=== PATIENT | male | born 1945 | race Hispanic/Latino ===

== ENCOUNTER → 2017-11-08 | Outpatient (CLI) | payer MEDICARE ==
[~2017-11-08] MED LIST: AVODART PO; FENOFIBRATE145 MG PO; LEVITRA; LISINOPRIL PO; METFORMIN; METFORMIN HCL500 MG PO; MINOCYCLINE HCL50 MG PO; NEURONTIN PO; SYNTHROID PO; TAMSULOSIN HCL0.4 MG PO; TERAZOSIN; TRICOR; VESICARE5 MG PO; [UNRECOGNIZED DRUG - OTHER]; [UNRECOGNIZED DRUG - OTHER] PO; [UNRECOGNIZED DRUG - OTHER] PO; [UNRECOGNIZED DRUG - OTHER] TP
--- NOTE | 2017-11-08 13:30 | Diagnostic Imaging Report ---
PROCEDURE:X-RAY ABDOMEN - KUB COMPARISON:X-rays 08/12/17 and 05/07/2017. INDICATIONS:CALCULUS OF THE KIDNEY FINDINGS: Bowel gas pattern: Normal. No dilated bowel loops. Calcifications: There are 3 stable punctate calcifications in the lower pole of the right kidney. No calcifications over the left renal shadow. Several calcifications at the midline lower pelvis are stable. Organomegaly: None Bones: Sclerotic lesion in the right iliac wing is stable. CONCLUSION: Stable calcifications in the lower pole of the right kidney. No new calcifications by x-ray. Dictated by: Yuliana Jansen M.D. on 11/08/2017 at 13:30 Electronically approved by: Yuliana Jansen M.D. on 11/08/2017 at 13:30
== END ==
LOC: RAD 09:17
PROVIDERS: ATTEND Urology
DX: N20.0 Calculus of kidney (principal)
CPT/HCPCS: 74018

== ENCOUNTER 2017-11-10 09:31 | Emergency (ER) | payer MEDICARE, OTHER ==
[~2017-11-10] VITALS: Ht 165.1 cm; Wt 88.5 kg
--- OUTSIDE RECORDS SUMMARY | 2017-11-10 09:35 | XMS REPORT ---
Author Author [facility] Address Unknown Phone Unavailable Care Team Providers [facility] Administrative Assistant Name Role Phone RANDI LEE Unavailable Unavailable Problems This patient has no known problems. Allergies, Adverse Reactions, Alerts This patient has no known allergies or adverse reactions. Medications This patient has no known medications. Results Test Description Test Time Test Comments Text Results Atomic Results Result Comments ABDOMEN-1VIEW (KUB) [place] [address] Patient Name: UMER MORENO MR #: [id number] : 1945 Age/Sex: 72/M Req #: [id number] Adm Physician: Ordered by: RANDI LEE MD Report #: [id number] Location: [facility] Room/Bed: Procedure: [id number] DX/ABDOMEN-1VIEW (KUB) Exam Date: 11/08/17 Exam Time: 0939 REPORT STATUS: Signed PROCEDURE: X-RAY ABDOMEN - KUB COMPARISON: X-rays 08/12/17 and 05/07/2017. INDICATIONS: CALCULUS OF THE KIDNEY FINDINGS: Bowel gas pattern: Normal. No dilated bowel loops. Calcifications: There are 3 stable punctate calcifications in the lower pole of the right kidney. No calcifications over the left renal shadow. Several calcifications at the midline lower pelvis are stable. Organomegaly: None Bones: Sclerotic lesion in the right iliac wing is stable. CONCLUSION: Stable calcifications in the lower pole of the right kidney. No new calcifications by x-ray. Dictated by: Yannick Jansen M.D. on 2017 at 13:30 Electronically approved by: Yannick Jansen M.D. on 2017 at 13:30 Dictated By: YANNICK JANSEN MD 1330 Transcribed By : ALIREZA on 11/08/17 1330 COPY TO: RANDI LEE MD ABDOMEN-1VIEW (KUB) [place] [address] Patient Name: UMER MORENO MR #: [id number] : 1945 Age/Sex: 72/M Req #: [id number] Adm Physician: Ordered by: RANDI LEE MD Report #: [id number] Location: [facility] Room/Bed: Procedure: [id number] DX/ABDOMEN-1VIEW (KUB) Exam Date: 08/12/17 Exam Time: 0855 REPORT STATUS: Signed PROCEDURE: X-RAY ABDOMEN - KUB COMPARISON: 05/07/2017 INDICATIONS: CALCULUS OF KIDNEY FINDINGS: Unchanged appearance of a 2-3 mm calculus projecting over the lower pole of the right renal shadow. No additional calcifications project over the renal shadows, expected ureteral courses, or urinary bladder. Midline low pelvic calcifications are likely prostatic in origin. Unchanged sclerotic focus projecting over the right iliac wing, likely a bone island. Regional skeletal structures are otherwise intact. Nonobstructive bowel gas pattern with gas and fecal material throughout the rectum. CONCLUSION: Stable right lower pole nephrolithiasis. Dictated by: Trip Fam M.D. on 08/12/2017 at 9:35 Electronically approved by: Trip Fam M.D. on 08/12/2017 at 9:35 Dictated By : TRIP FAM MD 4 Transcribed By: ALIREZA on 08/12/17934 COPY TO: RANDI LEE MD ABDOMEN-1VIEW (KUB) [place] [address] Patient Name: UMER MORENO MR #: [id number] : 1945 Age/Sex: 71/M Req #: [id number] Adm Physician: Ordered by: RANDI LEE MD Report #: [id number] Location: [facility] Room/Bed: Procedure: [id number] DX/ABDOMEN-1VIEW (KUB) Exam Date: 05/07/17 Exam Time: 0820 REPORT STATUS: Signed PROCEDURE: X-RAY ABDOMEN - KUB COMPARISON: 01/26/17. INDICATIONS: RENAL CALCULUS FINDINGS: No appreciable interval change in cluster of small calcifications projecting over the lower pole of the right kidney, the largest of which measures 3 mm. No additional calcifications project over the renal shadows, expected ureteral courses, or pelvis. Dystrophic prostatic calcifications. Sclerotic focus projecting over the right iliac wing is unchanged and may represent a bone island. Regional skeletal structures are otherwise intact. Bowel gas pattern is nonobstructive. CONCLUSION: Unchanged right lower pole nephrolithiasis. Dictated by: Trip Fam M.D. on 05/07/2017 at 8:52 Electronically approved by: Trip Fam M.D. on 05/07/2017 at 8:52 Dictated By: TRIP FAM MD 1 Transcribed By: ALIREZA on 05/07/17851 COPY TO: RANDI LEE MD
[2017-11-10] MEDS ORDERED: ACETAMINOPHEN/CODEINE 300MG - 30MG TAB PO ONE (10:15)
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
[2017-11-10 12:43] LABS: BASOPHILS % 0.2 % (0.0-1.0); EOSINOPHILS # (AUTO) 0.1 (0.0-0.4); EOSINOPHILS % 2.1 % (0.0-6.0); HEMATOCRIT 39.4 % (38.2-49.6); HEMOGLOBIN 13.3 g/dL (14.0-18.0); LYMPHOCYTES # (AUTO) 1.8 (1.0-3.2); MEAN CORPUSCULAR HGB CONC 33.8 g/dL (31-35); MEAN CORPUSCULAR VOLUME 77.1 fL (81-99); MONOCYTES # (AUTO) 0.4 (0.2-0.8); MONOCYTES % 7.8 % (4.4-11.3); NEUTROPHILS % 56.5 % (38.7-80.0); PLATELET COUNT 242 x10e3/uL (140-360); RED BLOOD COUNT 5.11 x10e6/uL (4.3-5.7); RED CELL DISTRIBUTION WIDTH 14.3 % (11.7-14.4)
[2017-11-10 12:54] LABS: INR 1.09; PARTIAL THROMBOPLASTIN TIME 26.1 seconds (23.8-35.5); PROTHROMBIN TIME 13.3 seconds (11.9-14.5)
[2017-11-10 13:02] LABS: ALANINE AMINOTRANSFERASE 23 IU/L (0-55); ALBUMIN 4.1 g/dL (3.5-5.0); ALBUMIN/GLOBULIN RATIO 1.3 (0.8-2.0); ALKALINE PHOSPHATASE 33 IU/L (40-150); ANION GAP 11.1 mmol/L (8-16); BLOOD UREA NITROGEN 10 mg/dL (7-26); BUN/CREATININE RATIO 9 (6-25); CALCIUM 9.3 mg/dL (8.4-10.2); CARBON DIOXIDE 29 mmol/L (22-29); CHLORIDE 103 mmol/L (98-107); CREATININE, SERUM 1.06 mg/dL (0.72-1.25); EST GLOMERULAR FILTRATION RATE > 60 ML/MIN (60-); GLUCOSE 229 mg/dL (74-118); POTASSIUM 4.1 mmol/L (3.5-5.1); SODIUM 139 mmol/L (136-145)
== END 2017-11-10 13:37 | disposition short-term general hospital (02) ==
LOC: ER 09:31
DX: I60.8 Other nontraumatic subarachnoid hemorrhage (principal); S02.40FA Zygomatic fracture, left side, initial encounter for closed fracture; S02.82XA Fracture of other specified skull and facial bones, left side, initial encounter for closed fracture; S00.03XA Contusion of scalp, initial encounter; Y04.8XXA Assault by other bodily force, initial encounter; Y92.488 Other paved roadways as the place of occurrence of the external cause; E11.9 Type 2 diabetes mellitus without complications; I10 Essential (primary) hypertension; Z85.850 Personal history of malignant neoplasm of thyroid; E03.9 Hypothyroidism, unspecified
CPT/HCPCS: 36415; 70450; 70486; 72125; 80053; 85025; 85610; 85730; 99285

== ENCOUNTER → 2018-03-11 | Outpatient (CLI) | payer OTHER ==
--- NOTE | 2018-03-11 12:13 | Diagnostic Imaging Report ---
PROCEDURE:X-RAY ABDOMEN - KUB COMPARISON:Patients [facility], DX, ABDOMEN-1VIEW (KUB), 11/08/2017, 9:39. INDICATIONS:CALCULUS OF KIDNEY FINDINGS: Lung bases: Clear. Bowel: Normal bowel gas pattern. No dilated bowel loops. Calcifications: 2-3 tiny calcifications overlying the lower pole of the right kidney are stable. No calcifications over the left renal shadow or along the expected course of the ureters. Bones/soft tissues: Unremarkable. CONCLUSION: Right intrarenal calculi as described above. No new calculus has developed. Dictated by: Yuliana Jansen M.D. on 03/11/2018 at 12:18 Electronically approved by: Yuliana Jansen M.D. on 03/11/2018 at 12:18
== END ==
LOC: RAD 09:14
PROVIDERS: ATTEND Urology
DX: N20.0 Calculus of kidney (principal)
CPT/HCPCS: 74018

== ENCOUNTER → 2018-08-04 | Outpatient (CLI) | payer MEDICARE ==
[2018-08-04 09:09] LABS: BASOPHILS % 0.3 % (0.0-1.0); EOSINOPHILS # (AUTO) 0.3 (0.0-0.4); EOSINOPHILS % 3.9 % (0.0-6.0); HEMATOCRIT 42.4 % (38.2-49.6); HEMOGLOBIN 13.6 g/dL (14.0-18.0); LYMPHOCYTES # (AUTO) 2.1 (1.0-3.2); LYMPHOCYTES % 32.4 % (18.0-39.1); MEAN CORPUSCULAR HGB CONC 32.1 g/dL (31-35); MEAN CORPUSCULAR VOLUME 77.9 fL (81-99); MONOCYTES # (AUTO) 0.4 (0.2-0.8); MONOCYTES % 6.4 % (4.4-11.3); NEUTROPHILS # (AUTO) 3.6 (2.1-6.9); NEUTROPHILS % 56.5 % (38.7-80.0); PLATELET COUNT 255 x10e3/uL (140-360); RED BLOOD COUNT 5.44 x10e6/uL (4.3-5.7); RED CELL DISTRIBUTION WIDTH 14.6 % (11.7-14.4)
[2018-08-04 09:35] LABS: ALBUMIN 3.7 g/dL (3.5-5.0); ALKALINE PHOSPHATASE 38 IU/L (40-150); ANION GAP 13.8 mmol/L (8-16); BLOOD UREA NITROGEN 10 mg/dL (7-26); BUN/CREATININE RATIO 11 (6-25); CALCIUM 9.4 mg/dL (8.4-10.2); CARBON DIOXIDE 26 mmol/L (22-29); CHLORIDE 103 mmol/L (98-107); CHOL/HDL RATIO 5.1 (3.9-4.7); CHOLESTEROL 177 MD/DL (0-199); CREATININE, SERUM 0.89 mg/dL (0.72-1.25); EST GLOMERULAR FILTRATION RATE > 60 ML/MIN (60-); GLUCOSE 184 mg/dL (74-118); HDL CHOLESTEROL 35 MG/DL (40-60); LDL CHOLESTEROL 103 MG/DL (60-130); POTASSIUM 3.8 mmol/L (3.5-5.1); SODIUM 139 mmol/L (136-145); TRIGLYCERIDES 196 MG/DL (0-149)
[2018-08-04 09:49] LABS: ALANINE AMINOTRANSFERASE 17 IU/L (0-55)
[2018-08-04 09:55] LABS: THYROID STIMULATING HORMONE 1.607 uIU/mL (0.350-4.940)
== END ==
LOC: LAB 08:29
PROVIDERS: ATTEND Internal Medicine Endocrinology, Diabetes & Metabolism
DX: Z12.5 Encounter for screening for malignant neoplasm of prostate (principal); R94.6 Abnormal results of thyroid function studies; R73.09 Other abnormal glucose; I42.9 Cardiomyopathy, unspecified; E78.5 Hyperlipidemia, unspecified; R80.9 Proteinuria, unspecified; R68.89 Other general symptoms and signs
CPT/HCPCS: 36415; 80053; 80061; 82044; 83036; 84152; 84443; 85025

== ENCOUNTER → 2018-10-19 | Outpatient (CLI) | payer MEDICARE ==
--- NOTE | 2018-10-19 10:46 | Diagnostic Imaging Report ---
EXAM: CT ABDOMEN AND PELVIS without IV CONTRAST DATE: 10/19/2018 Time stamp on Exam: 9:37 AM INDICATION: Hematuria COMPARISON: None TECHNIQUE: The abdomen and pelvis were scanned using a multidetector helical scanner. Coronal and sagittal reformations were obtained. Routine protocol performed. Low-dose technique was utilized. IV Contrast: None Oral Contrast: None Radiation Dose: Total DLP 536.08 mGy*cm Estimated effective dose: DLP x 0.015 x size factor FINDINGS: LOWER THORAX: No consolidations LIVER: No masses with diffuse fatty infiltration of the liver. BILIARY: The gallbladder is unremarkable. No ductal dilatation. SPLEEN: No masses PANCREAS: No masses ADRENALS: No nodules KIDNEYS: There are 2 small right lower pole renal stones with a composite measurement of 6 mm. No evidence of hydronephrosis. Contour abnormality of the left upper interpolar region with subtle low density may represent a cyst or a mass. In a patient with gross hematuria CT renal mass protocol follow-up would be of benefit. Nonspecific bilateral perinephric fat stranding. GI TRACT: No distention, wall thickening or evidence of obstruction. VESSELS: Vascular calcification. PERITONEUM/RETROPERITONEUM: No free air or fluid LYMPH NODES: No lymphadenopathy REPRODUCTIVE ORGANS: Prostate calcification. BLADDER: Unremarkable SOFT TISSUES: Unremarkable BONES: No suspicious bone lesions. Mild degenerative changes of the spine. IMPRESSION: 1. Two small nonobstructing right lower pole renal stones. 2. Subtle left lateral renal interpolar contour abnormality with focal hypodensity. 3. Follow-up renal mass protocol is recommended. 4. Diffuse fatty infiltration of the liver. Signed by: Dr. Tray Hester DO on 10/19/2018 10:43 AM
== END ==
LOC: CT 08:56
PROVIDERS: ATTEND Urology
DX: R31.0 Gross hematuria (principal); N20.0 Calculus of kidney; K76.0 Fatty (change of) liver, not elsewhere classified
CPT/HCPCS: 74176

== ENCOUNTER → 2018-11-01 | Outpatient (CLI) | payer MEDICARE ==
--- NOTE | 2018-11-01 15:17 | Diagnostic Imaging Report ---
EXAMINATION: PA and lateral views of the chest. COMPARISON: None CLINICAL HISTORY: Thyroid cancer DISCUSSION: Lines/tubes: None. Lungs: The lungs are well inflated and clear. No pneumonia or pulmonary edema. Pleura: No pleural effusion or pneumothorax. Heart and mediastinum: The cardiomediastinal silhouette is normal. Bones and soft tissues: No acute bony abnormalities. IMPRESSION: No acute cardiopulmonary abnormalities. Signed by: Dr. Carlos Lyman M.D. on 11/01/2018 3:14 PM
--- NOTE | 2018-11-01 17:26 | Diagnostic Imaging Report ---
EXAM: Thyroid Ultrasound INDICATION: ^THYROID CANCER. Thyroidectomy 2002. COMPARISON: None TECHNIQUE: Transverse and sagittal images were obtained of the thyroid bed. FINDINGS: Thyroid bed: Status post thyroidectomy. No residual thyroid tissue or recurrent thyroid tissue is noted in the thyroid bed bilaterally. Lymph nodes: No suspicious appearing lymph nodes. IMPRESSION: Status post thyroidectomy. No evidence to suggest residual or recurrent disease. Signed by: Dr. Donnie Bhatia M.D. on 11/01/2018 5:22 PM
== END ==
LOC: US 13:03
PROVIDERS: ATTEND Otolaryngology
DX: C73 Malignant neoplasm of thyroid gland (principal)
CPT/HCPCS: 71046; 76536

== ENCOUNTER → 2018-11-07 | Outpatient (CLI) | payer MEDICARE ==
[~2018-11-07] MED LIST changes: +IOPAMIDOL 370 MG/ML 200 ML INFUS..BTL INJ ONE; +SODIUM CHLORIDE 0.9% 50ML 50 ML ONE
[2018-11-07 08:25] LABS: BLOOD UREA NITROGEN 17 mg/dL (7-26); BUN/CREATININE RATIO 17 (6-25); EST GLOMERULAR FILTRATION RATE > 60 ML/MIN (60-)
--- NOTE | 2018-11-07 10:41 | Diagnostic Imaging Report ---
EXAM: CT Abdomen and Pelvis WITHOUT and WITH contrast INDICATION: Renal neoplasm COMPARISON: CT abdomen/pelvis, 10/19/2018 TECHNIQUE: Abdomen and pelvis were scanned utilizing a multidetector helical scanner from the lung base to the pubic symphysis before and after administration of IV contrast. Coronal and sagittal reformations were obtained. Imaging was obtained precontrast, arterial phase, venous phase and delayed phase. Renal mass protocol was performed, with abdomen and pelvis scanning on delayed imaging. Dose modulation, iterative reconstruction, and/or weight based adjustment of the mA/kV was utilized to reduce the radiation dose to as low as reasonably achievable. IV CONTRAST: 100 mL of Isovue-370 ORAL CONTRAST: 900 cc water RADIATION DOSE: Total DLP: 1803.90 mGy*cm Estimated effective dose: (DLP x 0.015 x size factor) mSv COMPLICATIONS: None FINDINGS: LINES and TUBES: None. LOWER THORAX: Lung bases clear. Heart size normal. HEPATOBILIARY: Diffuse low density hepatic parenchyma compatible with steatosis. No focal hepatic lesions. No biliary ductal dilation. GALLBLADDER: No radio-opaque stones or sludge. No wall thickening. SPLEEN: No splenomegaly. PANCREAS: No focal masses or ductal dilatation. ADRENALS: No adrenal nodules KIDNEYS/URETERS: Kidneys enhance symmetrically. No hydronephrosis or ureteral dilatation no filling defects in opacified collecting systems. There is a well marginated 1.1 cm peripheral low density mass in the lateral upper aspect of the left kidney. This is best seen on postcontrast imaging. The internal density measures under 10 HU on each phase of the examination with no evidence for enhancement. Again noted is a 5 mm calcification in the lower pole right collecting system compatible with nonobstructing intrarenal calculus. There is very mild perinephric stranding bilaterally. GI TRACT: No abnormal distention, wall thickening, or evidence of bowel obstruction. There are scattered colonic diverticula with no CT evidence for acute diverticulitis. The appendix is not conspicuously visualized but there is no right lower quadrant inflammation to suggest appendicitis. PELVIC ORGANS/BLADDER: Partially opacified urinary bladder unremarkable. No discrete abnormal mass or fluid collection in the pelvis. LYMPH NODES: No dominant lymph node mass is seen in the abdomen, retroperitoneum or pelvis. VESSELS: There are scattered calcified plaques along the abdominal aorta. No abdominal aortic aneurysm or dissection. Renal arteries are patent with an accessory left renal artery noted. IVC unremarkable. Portal system is patent, only partially included on the venous phase which is targeted at the kidneys. PERITONEUM / RETROPERITONEUM: No pneumoperitoneum or ascites. BONES: No acute or suspicious bony lesions. SOFT TISSUES: Superficial surrounding soft tissue unremarkable. Small left inguinal hernia containing fat. IMPRESSION: 1. 1.1 cm hypodensity in the lateral upper pole of the left kidney is cyst density, well marginated and shows no evidence for enhancement. This is compatible with a small cortical cyst. 2. Again noted is a 5 mm nonobstructing intrarenal calculus the lower pole of the right collecting system. 3. No other acute finding or significant change from previous CT. Signed by: Dr. Carlos Martinez M.D. on 11/07/2018 10:37 AM
== END ==
LOC: CT 07:18
PROVIDERS: ATTEND Urology
DX: D41.00 Neoplasm of uncertain behavior of unspecified kidney (principal)
CPT/HCPCS: 36415; 74178; 82565; 84520; Q9967

== ENCOUNTER → 2018-12-22 | Outpatient (CLI) | payer MEDICARE ==
[~2018-12-22] MED LIST changes: -IOPAMIDOL 370 MG/ML 200 ML INFUS..BTL INJ ONE; -SODIUM CHLORIDE 0.9% 50ML 50 ML ONE
--- NOTE | 2018-12-22 09:29 | Diagnostic Imaging Report ---
Exam: KUB - 2 views Clinical History: Renal calculus. Comparison: CT abdomen/pelvis 11/07/2018. Findings: There is a 5 mm calcification overlying the right lower pole kidney. No evidence of calcification overlying the left kidney or expected course of the ureters. There are prostatic calcifications. Nonobstructive bowel gas pattern. Moderate amount of stool in the colon. No acute bony abnormality. Impression: A 5 mm calcification overlying the right lower pole kidney, corresponding to stone seen on prior CT from 11/07/2018. Signed by: Dr. Glenn Velez MD on 12/22/2018 9:25 AM
== END ==
LOC: RAD 08:31
PROVIDERS: ATTEND Urology
DX: N20.0 Calculus of kidney (principal)
CPT/HCPCS: 74018

== ENCOUNTER → 2019-03-07 | Outpatient (CLI) | payer MEDICARE ==
[2019-03-07 09:01] LABS: BASOPHILS % 0.1 % (0.0-1.0); EOSINOPHILS # (AUTO) 0.3 (0.0-0.4); EOSINOPHILS % 3.4 % (0.0-6.0); HEMATOCRIT 22.4 % (38.2-49.6); HEMOGLOBIN 7.1 g/dL (14.0-18.0); LYMPHOCYTES # (AUTO) 1.8 (1.0-3.2); LYMPHOCYTES % 23.2 % (18.0-39.1); MEAN CORPUSCULAR HEMOGLOBIN 25.4 pg (28-32); MEAN CORPUSCULAR HGB CONC 31.7 g/dL (31-35); MONOCYTES # (AUTO) 0.5 (0.2-0.8); MONOCYTES % 6.7 % (4.4-11.3); NEUTROPHILS # (AUTO) 4.9 (2.1-6.9); NEUTROPHILS % 62.4 % (38.7-80.0); PLATELET COUNT 282 x10e3/uL (140-360); RED CELL DISTRIBUTION WIDTH 15.4 % (11.7-14.4); RETICULOCYTE % 4.1 % (0.8-2.2)
[2019-03-07 09:18] LABS: ALANINE AMINOTRANSFERASE 15 IU/L (0-55); ALBUMIN 3.4 g/dL (3.5-5.0); ALBUMIN/GLOBULIN RATIO 1.3 (0.8-2.0); ALKALINE PHOSPHATASE 28 IU/L (40-150); BLOOD UREA NITROGEN 12 mg/dL (7-26); BUN/CREATININE RATIO 12 (6-25); CALCIUM 8.7 mg/dL (8.4-10.2); CARBON DIOXIDE 26 mmol/L (22-29); CHLORIDE 100 mmol/L (98-107); CREATININE, SERUM 0.99 mg/dL (0.72-1.25); EST GLOMERULAR FILTRATION RATE > 60 ML/MIN (60-); GLUCOSE 211 mg/dL (74-118); SODIUM 133 mmol/L (136-145)
[2019-03-07 09:39] LABS: FERRITIN 66.23 ng/mL (21.81-274.66)
[2019-03-07 09:52] LABS: FOLATE 7.3 ng/mL (7.0-15.4)
== END ==
LOC: LAB 08:27
PROVIDERS: ATTEND Internal Medicine Hepatology
DX: K92.1 Melena (principal); D62 Acute posthemorrhagic anemia; K59.00 Constipation, unspecified; E11.9 Type 2 diabetes mellitus without complications; K57.30 Diverticulosis of large intestine without perforation or abscess without bleeding; K21.9 Gastro-esophageal reflux disease without esophagitis; Z86.010 Personal history of colon polyps
CPT/HCPCS: 36415; 80053; 82607; 82728; 82746; 85025; 85045

== ENCOUNTER → 2019-04-07 | Outpatient (CLI) | payer MEDICARE | LOC: LAB 09:01 | PROVIDERS: ATTEND Internal Medicine Endocrinology, Diabetes & Metabolism | DX: D50.9 Iron deficiency anemia, unspecified (principal); D51.3 Other dietary vitamin B12 deficiency anemia ==

== ENCOUNTER → 2019-04-10 | Outpatient (CLI) | payer MEDICARE ==
[2019-04-10 08:38] LABS: BASOPHILS % 0.3 % (0.0-1.0); EOSINOPHILS # (AUTO) 0.2 (0.0-0.4); EOSINOPHILS % 3.5 % (0.0-6.0); HEMATOCRIT 40.4 % (38.2-49.6); HEMOGLOBIN 12.8 g/dL (14.0-18.0); LYMPHOCYTES # (AUTO) 1.7 (1.0-3.2); LYMPHOCYTES % 29.8 % (18.0-39.1); MEAN CORPUSCULAR HEMOGLOBIN 25.8 pg (28-32); MEAN CORPUSCULAR HGB CONC 31.7 g/dL (31-35); MEAN CORPUSCULAR VOLUME 81.3 fL (81-99); MONOCYTES # (AUTO) 0.5 (0.2-0.8); MONOCYTES % 8.1 % (4.4-11.3); NEUTROPHILS # (AUTO) 3.4 (2.1-6.9); NEUTROPHILS % 58.1 % (38.7-80.0); PLATELET COUNT 299 x10e3/uL (140-360); RED BLOOD COUNT 4.97 x10e6/uL (4.3-5.7); RED CELL DISTRIBUTION WIDTH 14.7 % (11.7-14.4)
[2019-04-10 09:11] LABS: FERRITIN 25.79 ng/mL (21.81-274.66)
== END ==
LOC: LAB 08:24
PROVIDERS: ATTEND Internal Medicine Hepatology
DX: D50.9 Iron deficiency anemia, unspecified (principal); D51.3 Other dietary vitamin B12 deficiency anemia
CPT/HCPCS: 36415; 82728; 83540; 84466; 85025

== ENCOUNTER → 2019-06-08 | Outpatient (CLI) | payer MEDICARE ==
--- NOTE | 2019-06-08 10:13 | Diagnostic Imaging Report ---
Abdomen, 1 view. History: Kidney stones. Comparison: 12/22/2018. Findings: Air is scattered throughout nondilated small and large bowel. There are no masses. The previously seen small calcification projected over the right renal lower pole is not seen on today's exam. The osseous structures are intact. IMPRESSION: Non-specific bowel gas pattern. Signed by: Boni Sparrow on 06/08/2019 10:10 AM
== END ==
LOC: RAD 09:06
PROVIDERS: ATTEND Urology
DX: N20.0 Calculus of kidney (principal)
CPT/HCPCS: 74018

== ENCOUNTER → 2019-12-29 | Outpatient (CLI) | payer MEDICARE ==
--- NOTE | 2019-12-29 10:12 | Diagnostic Imaging Report ---
EXAM: Renal Ultrasound INDICATION: ^[id number] ^0823 ^NEOPLASM OF UNCERTAIN OF UNSPC'D KIDNEY COMPARISON: CT abdomen and pelvis of 11/07/2018 TECHNIQUE: Transverse and longitudinal images of the kidneys and bladder were obtained. FINDINGS: Right Kidney: Length: 12.7 cm Appearance: Normal echogenicity. Collecting system: No hydronephrosis Stones: None Cyst/Mass: None Left Kidney: Length: 12.3 cm Appearance: Normal echogenicity. Collecting system: No hydronephrosis Stones: None Cyst/Mass: Upper pole 1.4 cm anechoic simple cyst. Bladder: No mass or calculi. Bilateral ureteral jets visualized. Prevoid volume estimate of 348 cc. Prostate volume estimate of 40.2 cc. IMPRESSION: Left upper pole simple cyst. No hydronephrosis or renal calculi. Signed by: Rod Tineo MD on 12/29/2019 10:08 AM
== END ==
LOC: US 07:49
PROVIDERS: ATTEND Urology
DX: D41.00 Neoplasm of uncertain behavior of unspecified kidney (principal)
CPT/HCPCS: 76770

== ENCOUNTER 2020-04-16 14:41 | Emergency (ER) | payer MEDICARE ==
[~2020-04-16] VITALS: Ht 165.1 cm; Wt 88.5 kg
--- NOTE | 2020-04-16 15:29 | NUR ---
notified primary nurse of pt
[2020-04-16 15:52] LABS: BASOPHILS % 0.2 % (0.0-1.0); EOSINOPHILS # (AUTO) 0.1 (0.0-0.4); EOSINOPHILS % 1.4 % (0.0-6.0); HEMATOCRIT 42.2 % (38.2-49.6); HEMOGLOBIN 13.8 g/dL (14.0-18.0); LYMPHOCYTES # (AUTO) 1.3 (1.0-3.2); LYMPHOCYTES % 12.7 % (18.0-39.1); MEAN CORPUSCULAR HEMOGLOBIN 24.7 pg (28-32); MEAN CORPUSCULAR HGB CONC 32.7 g/dL (31-35); MEAN CORPUSCULAR VOLUME 75.6 fL (81-99); MONOCYTES # (AUTO) 0.9 (0.2-0.8); MONOCYTES % 8.8 % (4.4-11.3); NEUTROPHILS # (AUTO) 7.9 (2.1-6.9); NEUTROPHILS % 76.1 % (38.7-80.0); PLATELET COUNT 332 x10e3/uL (140-360); RED BLOOD COUNT 5.58 x10e6/uL (4.3-5.7); RED CELL DISTRIBUTION WIDTH 14.5 % (11.7-14.4)
[2020-04-16 15:58] LABS: CLARITY,URINE CLOUDY (CLEAR); COLOR,URINE YELLOW (YELLOW); LEUKOCYTE ESTERASE ,URINE 2+ (NEGATIVE)
[2020-04-16 15:59] LABS: BILIRUBIN,URINE NEGATIVE (NEGATIVE); KETONES,URINE NEGATIVE (NEGATIVE); NITRITE,URINE POSITIVE (NEGATIVE); PROTEIN,URINE DIPSTICK 2+ (NEGATIVE); URINE UROBILINOGEN 0.2 mg/dL (0.2 - 1)
--- NOTE | 2020-04-16 16:02 | Emergency Department Note ---
History of Present Illnes History of Present Illness Chief Complaint: Abdominal Complaints History of Present Illness This is a 74 year old male Chief Complaint Comment PAIN with urination. PT STATES HASNT PEED IN ENTIRE WK. PT is poor HISTORIAN. PT AAOX4. AMBULATORY. STATES LOWER BACK AND PENILE PAIN. NOW STATES SAW HIS PCP YESTERDAY AND PUT ON UNK ANTIBIOTICS AND NOT BETTER AFTER one dose. Historian: Patient Arrival Mode: Car Onset (how long ago): week(s) Location: Penis Quality: burning Radiation: Reports back Severity: moderate Onset quality: gradual Duration (how long): week(s) (1) Timing of current episode: constant Progression: worsening Chronicity: new Context: Reports recent illness (UTI) Relieving factors: none Associated symptoms: Reports denies other symptoms Treatments prior to arrival: none Past Medical/Family History Physician Review I have reviewed the patient's past medical and family history. Any updates have been documented here. Past Medical History Recent Fever: No Clinical Suspicion of Infectio: No New/Unexplained Change in Ment: No Other Surgery: rotater cuff, hernia repair, thyroid removed Social History Smoking Cessation: Never Smoker Counseling Performed: No Alcohol Use: None Any Illegal Drug Use: No Other Last Tetanus: unk Any Pre-Existing Lines (PICC,: No Review of Systems Review of Systems Constitutional: Reports no symptoms EENTM: Reports no symptoms Cardiovascular: Reports no symptoms Respiratory: Reports no symptoms Gastrointestinal: Reports no symptoms Genitourinary: Reports as per HPI, Reports dysuria, Reports frequency Musculoskeletal: Reports no symptoms Integumentary: Reports no symptoms Neurological: Reports no symptoms Psychological: Reports no symptoms Endocrine: Reports no symptoms Hematological/Lymphatic: Reports no symptoms Physical Exam Related Data Allergies: Coded Allergies: Penicillins (Verified Allergy, Mild, 06/02/12) levofloxacin (Verified Allergy, Mild, ITCHING, 10/27/11) Uncoded Allergies: IVP DYE (Allergy, Mild, 06/02/12) Triage Vital Signs Vital Signs Date Time Temp Pulse Resp B/P (MAP) Pulse Ox O2 Delivery O2 Flow Rate FiO2 04/16/20 14:56 101.8 79 16 101/65 98 Room Air Vital signs reviewed: Yes Physical Exam CONSTITUTIONAL Constitutional: Present well-developed, Present well-nourished HENT HENT: Present normocephalic, Present atraumatic, Present oropharynx clear/moist, Present nose normal HENT L/R: Present left ext ear normal, Present right ext ear normal EYES Eyes: Reports PERRL, Reports conjunctivae normal NECK Neck: Present ROM normal PULMONARY Pulmonary: Present effort normal, Present breath sounds normal CARDIOVASCULAR Cardiovascular: Present regular rhythm, Present heart sounds normal, Present capillary refill normal, Present normal rate GASTROINTESTINAL Abdominal: Present soft, Present nontender, Present bowel sounds normal GENITOURINARY Genitourinary: Present exam deferred SKIN Skin: Present warm, Present dry MUSCULOSKELETAL Musculoskeletal: Present ROM normal NEUROLOGICAL Neurological: Present alert, Present oriented x 3, Present no gross motor or sensory deficits PSYCHOLOGICAL Psychological: Present mood/affect normal, Present judgement normal Results Laboratory Result Diagram: 04/16/20 1500 Laboratory Laboratory Tests Test 04/16/20 15:00 White Blood Count 10.35 x10e3/uL (4.8-10.8) Red Blood Count 5.58 x10e6/uL (4.3-5.7) Hemoglobin 13.8 g/dL (14.0-18.0) Hematocrit 42.2 % (38.2-49.6) Mean Corpuscular Volume 75.6 fL (81-99) Mean Corpuscular Hemoglobin 24.7 pg (28-32) Mean Corpuscular Hemoglobin Concent 32.7 g/dL (31-35) Red Cell Distribution Width 14.5 % (11.7-14.4) Platelet Count 332 x10e3/uL (140-360) Neutrophils (%) (Auto) 76.1 % (38.7-80.0) Lymphocytes (%) (Auto) 12.7 % (18.0-39.1) Monocytes (%) (Auto) 8.8 % (4.4-11.3) Eosinophils (%) (Auto) 1.4 % (0.0-6.0) Basophils (%) (Auto) 0.2 % (0.0-1.0) Neutrophils # (Auto) 7.9 (2.1-6.9) Lymphocytes # (Auto) 1.3 (1.0-3.2) Monocytes # (Auto) 0.9 (0.2-0.8) Eosinophils # (Auto) 0.1 (0.0-0.4) Basophils # (Auto) 0.0 (0.0-0.1) Absolute Immature Granulocyte (auto 0.08 x10e3/uL (0-0.1) Assessment & Plan Medical Decision Making MDM 74-year-old male presents for concerns over urinary tract infection. He was recently diagnosed with urinary tract infection place and antibiotics. He has taken one dose. Vital signs stable, within normal limits. Workup shows urinary tract infection. Doubt emergent process at this time. I discussed with patient that he needs to continue taking his antibiotics and to follow-up with his doctor concerning this. He will return to emergency department if new or worseni ng symptoms. Patient is appropriate for discharge. Do not suspect sepsis this time. Reassessment Reassessment time: 16:02 Reassessment Well appearing, NAD Assessment & Plan Final Impression: (1) UTI (urinary tract infection) Depart Disposition: HOME, SELF-CARE Last Vital Signs Date Time Temp Pulse Resp B/P (MAP) Pulse Ox O2 Delivery O2 Flow Rate FiO2 04/16/20 14:56 101.8 79 16 101/65 98 Room Air Home Meds Reported Medications Metformin Hcl (METFORMIN HCL) 500 Mg Tablet, 500 MG PO BID, #60 TAB 03/25/15 Tamsulosin Hcl (TAMSULOSIN HCL) 0.4 Mg Cap.er.24h, 0.4 MG PO DAILY 03/25/15 Solifenacin Succinate (VESICARE) 5 Mg Tablet, 5 MG PO DAILY, #30 TAB 03/25/15 Fenofibrate Nanocrystallized (FENOFIBRATE) 145 Mg Tablet, 145 MG PO DAILY 03/25/15 Minocycline Hcl (MINOCYCLINE HCL) 50 Mg Capsule, 100 MG PO DAILY, #60 TAB 03/25/15 [Synthroid] No Conflict Check, 125 MCG PO DAILY 04/11/12 Lansoprazole (PREVACID SOLUTAB) 30 Mg Tabdp, 30 MG PO DAILY 04/11/12 [Avodart] No Conflict Check, 5 MG PO DAILY 04/11/12 [Amarayl] No Conflict Check, 2 MG PO DAILY 04/11/12 [Lisinopril] No Conflict Check, 5 MG PO DAILY 04/11/12 [Neurontin] No Conflict Check, 600 MG PO DAILY 04/11/12 RUBI HANDY MD Apr 16, 2020 16:02
[2020-04-16 16:08] LABS: RBC,URINE 21-50 /HPF (0-5); WBC,URINE (MAN) >50 /HPF (0-5)
[2020-04-16 16:09] LABS: BACTERIA,URINE MANY /HPF; EPITHELIAL CELLS,URINE FEW /LPF
[2020-04-16 16:16] LABS: ALBUMIN 3.3 g/dL (3.5-5.0); ALBUMIN/GLOBULIN RATIO 0.8 (0.8-2.0); ANION GAP 17.3 mmol/L (8-16); CALCIUM 9.9 mg/dL (8.4-10.2); CREATININE, SERUM 1.25 mg/dL (0.72-1.25); POTASSIUM 4.3 mmol/L (3.5-5.1)
--- NOTE | 2020-04-16 16:16 | Diagnostic Imaging Report ---
EXAMINATION: CHEST SINGLE (PORTABLE) INDICATION: Fever COMPARISON: Chest radiograph 11/01/2018 FINDINGS: LINES/TUBES:None LUNGS:The lungs are well-inflated. No focal consolidation or pulmonary edema. PLEURA:No pleural effusion or pneumothorax. MEDIASTINUM:The cardiomediastinal silhouette appears normal in size and shape. BONES/SOFT TISSUES:No acute osseous injury. Right proximal humerus anchors. ABDOMEN:No free air under the diaphragm. IMPRESSION: No focal pneumonia or pulmonary edema. Signed by: Rod Tineo MD on 04/16/2020 4:13 PM
--- OUTSIDE RECORDS SUMMARY | 2020-04-16 16:25 | XMS REPORT | Clinical Summary ---
Author Author [facility] Address Unknown Phone Unavailable Care Team Providers Care Acupuncturist Name Role Phone PCP Unavailable Allergies Not on File Medications Not on file Active Problems Not on file Social History Date Tobacco Use Types Packs/Day Years Used Never Assessed Sex Assigned at Date Recorded Not on file Industry Job Start Date Occupation Not on file Not on file Not on file Travel End Travel History Travel Start No recent travel history available. Last Filed Vital Signs Not on file Plan of Treatment Health Maintenance Due Date Last Done Comments COLON CANCER SCREENING 1945 COLONOSCOPY PNEUMOCOCCAL 65+ 2012 LOW/MEDIUM RISK (1 of 2 - PCV13) INFLUENZA VACCINE (#1) 2020 Results Not on fileafter 04/16/2019
--- OUTSIDE RECORDS SUMMARY | 2020-04-16 16:25 | XMS REPORT | Clinical Summary ---
Author Author [facility] Address Unknown Phone Unavailable Care Team Providers Care Integrity Director Name Role Phone Girish Márquez MD PCP [phone] Allergies Comments Active Allergy Reactions Severity Noted Date Levofloxacin GI 02/27/2019 Intolerance Penicillins Swelling 02/27/2019 Medications End Date Status Medication Sig Dispensed Refills Start Date Active fenofibrate (TRICOR) 145 Take 145 mg 0 MG tablet by mouth nightly. Active lisinopril Take 5 mg by 0 (PRINIVIL,ZESTRIL) 5 mg mouth every tablet evening. Active glimepiride (AMARYL) 4 MG Take 4 mg by 0 tablet mouth 2 (two) times a day. Active TESTOSTERONE CYPIONATE IM Inject into 0 the shoulder, thigh, or buttocks every 14 (fourteen) days. Active sildenafil citrate Take by 0 (VIAGRA ORAL) mouth. Active solifenacin succinate Take by 0 (VESICARE ORAL) mouth. Active lansoprazole (PREVACID) Take 15 mg by 0 15 MG capsule mouth daily. Active gabapentin (NEURONTIN) Take 600 mg 0 600 mg tablet by mouth 3 (three) times a day. Active metFORMIN (GLUCOPHAGE) Take 500 mg 0 500 mg tablet by mouth daily with breakfast. Active levothyroxine (SYNTHROID, Take 125 mcg 0 LEVOXYL) 125 mcg tablet by mouth daily. Active dutasteride (AVODART) 0.5 Take 0.5 mg 0 mg capsule by mouth daily. 04/26/2019 Discontinued (Therapy comple alex) tamsulosin (FLOMAX) 0.4 Take 0.4 mg 0 mg capsule by mouth daily with dinner. 04/26/2019 Discontinued (Stop Taking at Discharge) aspirin (ECOTRIN) 81 MG Take 81 mg by 0 enteric coated tablet mouth daily. 04/26/2019 Discontinued (Stop Taking at Discharge) docosahexanoic acid/epa Take by 0 (FISH OIL ORAL) mouth. Active Problems Problem Noted Date Calculus of kidney 04/26/2019 Encounters Care Team Description Date Type Specialty Eamon Taylor MD RIGHT ESWL 04/26/2019 Surgery General Surgery Sy Lacy MD Strever, Michael Shane, CRNA 04/26/2019 Anesthesia General Surgery Event Eamon Taylor MD 04/26/2019 Hospital General Surgery Encounter Eamon Taylor MD Pre-op testing (Primary Dx) 04/24/2019 Pre-Admit Pre-Admission Testi ng Testing Appointment after 04/16/2019 Family History Medical History Relation Name Comments Diabetes Mother Relation Name Status Comments Father Mother Social History Date Tobacco Use Types Packs/Day Years Used Former Smoker Cigarettes 0.2 30 Smokeless Tobacco: Never Used Drinks/Week oz/Week Comments Alcohol Use ex social smoker Not Currently Sex Assigned at Date Recorded Not on file Industry Job Start Date Occupation Not on file Not on file Not on file Travel End Travel History Travel Start No recent travel history available. Last Filed Vital Signs Reading Time Taken Comments Vital Sign 170/84 04/26/2019 2:52 PM CDT Blood Pressure 70 04/26/2019 2:52 PM CDT Pulse 36.4 C (97.5 F) 04/26/2019 1:35 PM CDT Temperature 16 04/26/2019 2:52 PM CDT Respiratory Rate 97% 04/26/2019 2:52 PM CDT Oxygen Saturation - - Inhaled Oxygen Concentration 81.1 kg (178 lb 14.4 oz) 04/26/2019 12:00 PM CDT Weight 165.1 cm (5' 5") 04/26/2019 12:00 PM CDT Height 29.77 04/26/2019 12:00 PM CDT Body Mass Index Plan of Treatment Health Maintenance Due Date Last Done Comments COLONOSCOPY SCREENING 1997 SHINGLES VACCINES (#1) 1997 65+ PNEUMOCOCCAL VACCINE 2012 11/28/2006 (2 of 2 - PPSV23) INFLUENZA VACCINE 04/30/2020 Procedures Comments Procedure Name Priority Date/Time Associated Diag nosis EXTRACORPOREAL SHOCKWAVE 04/26/2019 KIDNEY STONE LITHOTRIPSY (ESWL) 12:47 PM CDT N20.0 Special Needs NEXTMED CONF # [id number] POC GLUCOSE Routine 04/26/2019 12:08 PM CDT XR ABDOMEN 1 VW Routine 04/26/2019 11:41 AM CDT ECG PRE/POST OP Routine 04/24/2019 Pre-op testing 10:47 AM CDT ESTIMATED GFR Routine 04/24/2019 10:44 AM CDT COMPREHENSIVE METABOLIC Routine 04/24/2019 Pre-op testing PANEL 10:44 AM CDT CBC HEMOGRAM Routine 04/24/2019 Pre-op testing 10:44 AM CDT after 04/16/2019 Results * POC glucose (04/26/2019 12:08 PM CDT) POC glucose 110 (H) 65 - 99 mg/dL [place] Comment: VINNIE BANSAL Meter ID: [id number] [facility] Maintenance Engineer: Bryson Krishna Specimen Performing Organization Address [facility] one Number [facility] [place] [address] [place], [place] [address] PATHOLOGY AND GENOMIC MEDICINE [place] VINNIE BANSAL [address] [place] [address] [facility] * XR Abdomen 1 Vw (04/26/2019 11:41 AM CDT) Specimen Narrative Performed At EXAMINATION: XR ABDOMEN 1 VW [facility] CLINICAL HISTORY: KUB for renal stone location preop COMPARISON: 02/27/2019 IMPRESSION: A couple of faint 3 mm calculi overlie the right lower renal pole. The bowel gas pattern is unremarkable. There is no significant skeletal abnorm ality. [id number] Procedure Note Interface, Radiology Results Incoming - 04/26/2019 11:53 AM CDT EXAMINATION: XR ABDOMEN 1 VW CLINICAL HISTORY: KUB for renal stone location preop COMPARISON: 02/27/2019 IMPRESSION: A couple of faint 3 mm calculi overlie the right lower renal pole. The bowel gas pattern is unremarkable. There is no significant skeletal abnormality. [id number] Performing Organization Address City/[facility] one Number [facility] [address] [place] [address] * ECG Pre/Post Op (04/24/2019 10:47 AM CDT) Ventricular 69 [facility] rate Atrial rate 69 [facility] MT interval 172 [facility] QRSD interval 110 [facility] QT interval 396 [facility] QTC interval 424 [facility] P axis 1 10 [facility] QRS axis 1 42 [facility] T wave axis 34 [facility] EKG impression Normal sinus rhythm-Low [facility] voltage QRS-Incomplete right bundle branch block-Borderline ECG-In automated comparison with ECG of 27-FEB-2019 09:24,-No significant change was found- Specimen Narrative Performed At This result has an attachment that is n ot available. Performing Organization Address [facility] one Number [facility] MUSE [address] [place] [address] * Estimated GFR (04/24/2019 10:44 AM CDT) Pathologist [facility] Estimated GFR 75 mL/min/1.73 m2 [place] Comment: [facility] Interpretation G1 >=90 Normal or high G2 60-89 Mildly decreased G3a 45-59 Mildly to moderately decreased G3b 30-44 Moderately to severely decreased G4 15-29 Severely decreased G5 <15 Kidney failure The eGFR was calculated using the Chronic Kidney Disease Epidemiology Collaboration (CKD-EPI) equation. Interpretation is based on recommendations of the National Kidney Foundation-Kidney Disease Outcomes Quality Initiative (NKF-KDOQI) published in 2014. Specimen Plasma specimen Performing Organization Address City/[facility] Ph one Number [facility] DEPARTMENT [place] [id number] [place] [address] [place], [place] [address] PATHOLOGY AND GENOMIC MEDICINE [facility] [id number] [place] [address] [place] [address] [facility] * CBC hemogram (04/24/2019 10:44 AM CDT) WBC 5.44 4.50 - 11.00 k/uL [facility] RBC 5.36 4.40 - 6.00 m/uL [facility] HGB 13.7 (L) 14.0 - 18.0 g/dL [facility] HCT 44.3 41.0 - 51.0 % [facility] MCV 82.6 82.0 - 100.0 fL [facility] MCH 25.6 (L) 27.0 - 34.0 pg [facility] MCHC 30.9 (L) 31.0 - 37.0 g/dL [facility] RDW - SD 43.8 37.0 - 55.0 fL [facility] MPV 10.6 8.8 - 13.2 fL [facility] Platelet count 213 150 - 400 k/uL [facility] Nucleated RBC 0.00 /100 WBC [facility] Specimen Blood Performing Organization Address City/State/[place] [address] [address] [place], [place] [address] PATHOLOGY AND GENOMIC MEDICINE [facility] [address] [place] [address] [facility] * Comprehensive metabolic panel (04/24/2019 10:44 AM CDT) Sodium 138 135 - 148 mEq/L [facility] Potassium 4.2 3.5 - 5.0 mEq/L [facility] Chloride 101 98 - 112 mEq/L [facility] CO2 27 24 - 31 mEq/L [facility] Anion gap 10@ANIO 7 - 15 mEq/L [facility] BUN 13 8 - 23 mg/dL [facility] Creatinine 1.00 0.70 - 1.20 mg/dL [facility] Glucose 138 (H) 65 - 99 mg/dL [facility] Calcium 9.7 8.8 - 10.2 mg/dL [facility] Protein 7.4 6.3 - 8.3 g/dL [place] Comment: [facility] 4.6-7.0 g/dL 1 week 4.4-7.6 g/dL 7 months-1year 5.1-7.3 g/dL 1-2 years 5.6-7.5 g/dL >3 years 6.0-8.0 g/dL 18-150 6.3-8.3 g/dL Albumin 4.5 3.5 - 5.0 g/dL [facility] A/G ratio 1.6 0.7 - 3.8 [facility] Alkaline 32 (L) 40 - 129 U/L [place] phosphatase [facility] AST 19 10 - 50 U/L [facility] ALT 23 5 - 50 U/L [facility] Total bilirubin <0.2 0.0 - 1.2 mg/dL [facility] Specimen Plasma specimen Performing Organization Address City/State/Zipcode [place] [address] [address], [place] [address] PATHOLOGY AND GENOMIC MEDICINE [facility] [address] [place] [address] [facility] after 04/16/2019 Insurance Type Payer Benefit Subscriber ID Effective Phone Address Plan / Dates Group PPO HUMANA MEDICARE HUMANA xxxxxxxxx [id number] MEDICARE resent PPO/PFFS/E [facility] Advance Directives For more information, please contact: [phone] Patient Client Service And Consulting Manager Explanation Type Date Recorded Advance Directives, 04/26/2019 11:23 AM Living Will and Medical Power of Electrician Second
--- OUTSIDE RECORDS SUMMARY | 2020-04-16 16:26 | XMS REPORT | Summary of Care ---
Author Author [facility] Outpatient Imaging - [facility] Organization [facility] Outpatient Imaging - [facility] Address Unknown Phone Unavailable Encounter HQ Rustamntr_jeovany(FIN) [id number] Date(s): 11/25/17 - 11/25/17 [facility] Outpatient Imaging - [place] [address] [place] [phone] Encounter Diagnosis Zygomatic fracture, left side, initial encounter for closed fracture (Final) - 12/01/17 Traumatic subdural hemorrhage with loss of consciousness of unspecified duration , initial encounter (Final) - Discharge Disposition: Home or Self Care Attending Physician: Tanner Gonsalez MD Vital Signs No data available for this section Problem List No data available for this section Allergies, Adverse Reactions, Alerts Substance Reaction Severity Status penicillins Active levoFLOXacin Active Medications No data available for this section Results No data available for this section Immunizations No data available for this section Procedures No data available for this section Social History Social History Type Response Smoking Status Never smoker; Previous roosevelt tment: None; Ready to change: No; Concerns about tobacco use in household: No; Exposure to Tobacco Smoke None; Cigarette Smoking Last 365 Days No; Reg Smoking C essation Counseling No entered on: 11/25/17 Assessment and Plan No data available for this section
--- OUTSIDE RECORDS SUMMARY | 2020-04-16 16:26 | XMS REPORT | Summary of Care ---
Author Author [facility] Organization [facility] Neurosurgery [facility] Address Unknown Phone Unavailable Encounter HQ Rustamntr_jeovany(FIN) [id number] Date(s): 11/25/17 - 11/26/17 [facility] Neurosurgery [facility] [address], [address] [place], [place] [address] [phone] Vital Signs No data available for this [...]
--- OUTSIDE RECORDS SUMMARY | 2020-04-16 16:26 | XMS REPORT | Summary of Care ---
Author Author [facility] Organization [facility] Address Unknown Phone Unavailable Encounter HQ Jasmin_jeovany(FIN) [id number] Date(s): 09/12/19 - 09/12/19 [facility] [address] [place], [place] [address]- [phone] Discharge Disposition: Home or Self Care Attending Physician: Christian Cool MD Referring Physician: Johnny Caballero MD Vital Signs Most recent to 1 oldest [Reference Range]: Height 165.1 cm (09/12/19 1:21 PM) Temperature Oral 98.1 DegF [96.4-99.1 DegF] (09/12/19 1:21 PM) Blood Pressure 110/63 mmHg [90-140/60-90 mmHg] (09/12/19 1:21 PM) Peripheral Pulse 69 bpm Rate [60-100 bpm] (09/12/19 1:21 PM) Weight 86.477 kg (09/12/19 1:21 PM) Body Mass Index 31.73 m2 (09/12/19 1:21 PM) Problem List Condition Effective Dates Status Health Status Informan t Diabetes(Confirmed) Resolved Simple Active obesity(Confirmed) Allergies, Adverse Reactions, Alerts Substance Reaction Severity Status penicillins Active contrast media Active (iodine-based) levoFLOXacin Active Medications No data available for [...] Smoking C essation Counseling No entered on: 09/12/19 Assessment and Plan No data available for this section
--- OUTSIDE RECORDS SUMMARY | 2020-04-16 16:26 | XMS REPORT | Summary of Care ---
Author Author [facility] General Surgery [place] [facility] Address Unknown Phone Unavailable Encounter HQ Encntr_alias(FIN) [id number] Date(s): 09/08/19 - 09/09/19 [facility] General Surgery [facility] [address] [address] [address] [address] [place] [address]- [phone] Vital Signs No data available for this section Problem List Condition Effective Dates Status Health [...] Smoking C essation Counseling No entered on: 08/18/19 Assessment and Plan No data available for this section
--- OUTSIDE RECORDS SUMMARY | 2020-04-16 16:26 | XMS REPORT | Summary of Care ---
Author Author [facility] Organization [facility] Address Unknown Phone Unavailable Encounter HQ Rommelr_jeovany(FIN) [id number] Date(s): 12/15/19 - 12/15/19 [facility] [address] [place], [place] [address]- [phone] Attending Physician: Christian Cool MD Referring Physician: Johnny Caballero MD Vital Signs No data available for [...]
--- OUTSIDE RECORDS SUMMARY | 2020-04-16 16:26 | XMS REPORT | Summary of Care ---
Author Author [facility] Organization [facility] Address Unknown Phone Unavailable Encounter HQ Deepali(FIN) [id number] Date(s): 08/18/19 - 08/18/19 [facility] [address] [place], [place] [address]- [phone] Discharge Disposition: Home or Self Care Attending Physician: Christian Cool MD Referring Physician: Johnny Caballero MD Vital Signs Most recent to 1 oldest [Reference Range]: Height 165.1 cm (08/18/19 11:05 AM) Temperature Oral 98.0 DegF [96.4-99.1 DegF] (08/18/19 11:05 AM) Blood Pressure 96/61 mmHg [90-140/60-90 mmHg] (08/18/19 11:05 AM) Peripheral Pulse 80 bpm Rate [60-100 bpm] (08/18/19 11:05 AM) Weight 82.636 kg (08/18/19 11:05 AM) Body Mass Index 30.32 m2 (08/18/19 11:05 AM) Problem List No data available for this section Allergies, Adverse Reactions, Alerts Substance Reaction Severity Status penicillins Active levoFLOXacin Active Medications No Known Medications Results No data available for this section [...]
--- OUTSIDE RECORDS SUMMARY | 2020-04-16 16:26 | XMS REPORT | Summary of Care ---
Author Author [facility] Organization [facility] Neurosurgery [facility] Address Unknown Phone Unavailable Encounter HQ Rustamntr_jeovany(FIN) [id number] Date(s): 11/25/17 - 11/25/17 [facility] Neurosurgery [facility] [address], [address] [place], [place] [address] [phone] Attending Physician: [facility] Referring Physician: Tanner Gonsalez MD Vital Signs No [...]
--- OUTSIDE RECORDS SUMMARY | 2020-04-16 16:26 | XMS REPORT | Summary of Care ---
Author Author [facility] Organization [facility] Address Unknown Phone Unavailable Encounter MARCELINA Palumbo(CHARLIE) [id number] Date(s): 09/11/19 - 09/11/19 [facility] [address] [place] [address]- Discharge Disposition: Home or Self Care Attending Physician: Christian Cool MD Admitting Physician: Christian Cool MD Referring Physician: Christian Cool MD Vital Signs No data available for this section Problem List Condition Effective Dates Status Health Status Informan t Diabetes(Confirmed) Resolved Simple Active obesity(Confirmed) Allergies, Adverse Reactions, Alerts Substance Reaction Severity Status penicillins Active contrast media Active (iodine-based) levoFLOXacin Active Medications No data available for this section Results Most recent to 1 oldest [Reference Range]: eGFR 85 mL/min/1.73m2 1 *NA* (09/11/19 8:19 AM) POC Creatinine 0.9 mg/dL [0.5-1.4 mg/dL] (09/11/19 8:19 AM) 1Result Comment: The eGFR is calculated using the CKD-EPI formula. In most young, healthy individuals the eGFR will be >90 mL/min/1.73m2. The eGFR declines with age. An eGFR of 60-89 may be normal in some populations, particularly the elderly, for whom the CKD-EPI formula has not been extensively validated. Use of the eGFR is not recommended in the following populations: Individuals with unstable creatinine concentrations, including patients and those with serious co-morbid conditions. Patients with extremes in muscle mass or diet. The data above are obtained from the National Kidney Disease Education Program ( NKDEP) which additionally recommends that when the eGFR is used in patients with extremes of body mass index for purposes of drug dosing, the eGFR should be mul tiplied by the estimated BMI. Immunizations No data available for this section [...]
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
--- OUTSIDE RECORDS SUMMARY | 2020-04-16 16:26 | XMS REPORT | Continuity of Care Document ---
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 Interpretation (test code = 69282-3) Abnormal Mp MethodistEstimated [id number] 11:23:51* Test Item Value Reference Range Interpretation Comments Estimated GFR (test code = 5488) 75 mL/min/1.73 m2 Catergory Units InterpretationG1 >=90 Normal or highG2 60-89 Mildly glnfirrnuD0v 45-59 Mildly to moderately umqrhxaecI0k 30-44 Moderately to severely decreasedG4 15-29 Severely decreasedG5 <15 Kidney failureThe eGFR was calculated using the Chronic Kidney Disease Epidemiology Collaboration (CKD-EPI) equation. Interpretation is based on recommendations of the National Kidney Foundation-Kidney Disease Outcomes Quality Initiative (NKF-KDOQI) published in 2014. [facility] xvbjenrd6199-85-68 11:16:08* Test Item Value Reference Range Interpretation Comments WBC (test code = 19770-8) 5.44 4.50- 11.00 k/uL RBC (test code = 88941-7) 5.36 m/uL 4.4-6 HGB (test code = 718-7) 13.7 g/dL 14-18 L HCT (test code = 4544-3) 44.3 % 41-51 MCV (test code = 787-2) 82.6 fL 82-100 MCH (test code = 785-6) 25.6 pg 27-34 L MCHC (test code = 786-4) 30.9 g/dL 31-37 L RDW - SD (test code = 43383-1) 43.8 fL 37-55 MPV (test code = 37335-6) 10.6 fL 8.8-13.2 Platelet count (test code = 13879-6) 213 150- 400 k/uL Nucleated RBC (test code = 85077-0) 0.00 /100 WBC Lab Interpretation (test code = 96114-0) Abnormal [facility] MethodistLACTIC ACID [id number] 12:50:00* Test Item Value Reference Range Interpretation Comments LACTIC ACID POC (test code = LACTP) 2.20 mmol/L 0.7-2.0 HH FTCJZGGTL0725-13-12 11:01:00* Test Item Value Reference Range Interpretation Comments POTASSIUM (test code = K) 5.0 mmol/L 3.4-5.0 N HGB [id number] 10:53:00* Test Item Value Reference Range Interpretation Comments HEMOGLOBIN (test code = HGB) 11.8 g/dL 14.0-18.0 L HEMATOCRIT (test code = HCT) 37.1 % 37.0-49.0 N - CT ABD PELVIS W/VONN0749-07-19 10:12:00 FAX: Maira Khanna MD [phone] [place]: St: REG Name: UMER ZHOU [facility] : 7 Age/S: 73/M [address] Unit: [id number] Loc: [place] [address] Phys: Maira Khanna MD Acct: [id number] Dis Date: Status: REG ER PHONE #: [phone] Exam Date: 03/03/2019 1000 FAX #: [phone] Reason: llq pain EXAMS: CPT CODE: [id number] CT ABD PELVIS W/CONT 53243 EXAM: - CT ABD PELVIS W/CONT LOCATION: C3 INDICATION: 73 years -old Male with llq pain TECHNIQUE: Contrast - IV contrast was given. No oral contrast was given Portal venous phase - abdomen and pelvis Delayed images through the abdomen. Reconstructions - coronal and sagittal planes This exam was performed according to our departmental dose-opti mization program, which includes automated exposure control, adjustment of the mA and/or kV according to patient size and/or use of iterative recons truction technique COMPARISON: None FINDINGS: Statements: None. Thoracic: Included images of the lower chest dem onstrate no abnormalities. Hepatobiliary: Liver demonstrates diffuse decrease in attenuation without focal lesion. The gallbladder is normal. No biliary dilation. Pancreas: Normal. Splee n: Normal. Adrenals: Normal. Genitourinary: 1.2 cm left renal cyst noted. No hydronephrosis. Evaluation of the bladder is l imited, but no obvious bladder abnormality is present. Gastr ointestinal: Mild inflammation identified at the proximal aspect of the si gmoid in this patient with diverticula. The appendix is not visualized. Vascular: Atherosclerotic calcifications are seen within the aorta a nd branch vessels. PAGE 1 Signed Report (CONTINUED) FAX: Maira Khanna MD [phone] [place] us: St: REG Name: UMER MORENO [facility] : 1945 Age/S: 73/M [address] Unit: [id number] Loc: [place] [address] hys: Maira Khanna MD Acct: [id number] Dis Date: Status: REG ER PHONE #: [phone] Exam Date: 03/03/2019 1000 FAX #: [phone] Reason: llq pain EXAMS: CPT CODE: [id number] CT ABD PELVIS W/CONT 87452 <Continued> Lymphatics: No enlarged lymph nodes by CT size criteria. Bones/Soft Tissues: No acute osseous findings. No ventral hernias. Peritoneum/Other: No extraluminal air. No extraluminal fluid. IMPRESSION: Uncomplicated mild sigmoid diverticulitis. Hepatic steatosis. at 1012 Reported and signed by: Víctor Hale MD CC: Maira Khanna MD Technologist: JULIANA Moore Trnscrd Dt/Tm: 03/03/2019 (1012) t.SDR.HV2 Orig Print D/T: S: 03/03/2019 (1015 PAGE 2 Signed Report BASIC METABOLIC [id number] 09:57:00* Test Item Value Reference Range Interpretation Comments SODIUM (test code = NA) 134 mmol/L 137-145 L POTASSIUM (test code = K) 5.6 mmol/L 3.4-5.0 H IS THE SAMPLE HEMOLYZED?:NHEMOLYSIS GRADE: CHLORIDE (test code = CL) 98 mmol/L 98-107 N CARBON DIOXIDE (test code = CO2) 22 mmol/L 22-30 N GLUCOSE (test code = GLU) 331 mg/dL 74-106 H BLOOD UREA NITROGEN (test code = BUN) 26 mg/dL 9-20 H GLOMERULAR FILTRATION RATE (test code = GFR) 63 >60 The estimated glomerular filtration rate is computed usingpatient race, age (>18), sex, and serum creatinine. If anyof the needed data elements are missing the Laboratory cannot compute an estimation of the glomerular filtration rate. CREATININE (test code = CREAT) 1.2 mg/dL 0.7-1.3 N CALCIUM (test code = CA) 8.8 mg/dL 8.4-10.2 N LIVER FUNCTION [id number] 09:57:00* Test Item Value Reference Range Interpretation Comments TOTAL PROTEIN (test code = PROT) 6.8 g/dL 6.3-8.2 N ALBUMIN (test code = ALB) 4.1 g/dL 3.5-5.0 N BILIRUBIN TOTAL (test code = BILT) 0.3 mg/dL 0.2-1.3 N BILIRUBIN CONJUGATED (test code = BILCON) 0 mg/dL 0-0.3 N ~~~~~~~~~~~~~~~~~~~~~~~~~~~~~~~~~~~~~~~~~~~~~~~~~~~~~~~~~~~~CONJUGATED BILIRUBIN IS THE REPLACEMENT ASSAY FOR DIRECTBILIRUBIN.~~~~~~~~~~~~~~~~~~~~~~~~~~~~~~~~~~~~~~~~~~~~~~~~~~~~~~~~~~~~ BILIRUBIN UNCONJUGATED (test code = BILUNC) 0.2 mg/dL 0-1.1 N SGOT/AST (test code = AST) 17 U/L 15-46 N SGPT/ALT (test code = ALT) 19 U/L 13-69 N ALKALINE PHOSPHATASE (test code = ALKP) 38 U/L 38-126 N [id number] 09:57:00* Test Item Value Reference Range Interpretation Comments LIPASE (test code = LIP) 255 U/L 23-300 N BEDSIDE MNYUGSBQNL5913-14-73 09:53:00* Test Item Value Reference Range Interpretation Comments BEDSIDE CREATININE (test code = CREATBED) 1.2 mg/dL 0.66-1.25 N PROTHROMBIN [id number] 09:52:00* Test Item Value Reference Range Interpretation Comments PROTHROMBIN TIME PATIENT (test code = PTP) 12.2 SECONDS 9.2-12.1 H INTERNATIONAL NORMAL RATIO (test code = INR) 1.1 The INR is to be used only for monitoring ORAL ANTICOAGULANTTHERAPY. Indication INR Value1. Prophylaxis/treatment of: Venous Thrombosis, Pulmonary Embolism 2.0 - 3.02. Prevention of systemic embolism from: Tissue heart valves 2.0 - 3.0 Acute myocardial infarction (to present systemic embolism)* 2.0 - 3.0 Valvular heart disease 2.0 - 3.0 Atrial fibrillation 2.0 - 3.03. Mechanical prosthetic valves (high risk) 2.5 - 3.5 * If oral anticoagulant therapy is elected to preventrecurrent myocardial infarction, an INR of 2.5-3.5 isrecommended, consistent with Food and Drug Administrationrecommendations. THROMBOPLASTIN TIME [id number] 09:52:00* Test Item Value Reference Range Interpretation Comments THROMBOPLASTIN TIME PARTIAL (test code = PTT) 22.4 SECONDS 23.4-37. 0 L Therapeutic Range for Heparin EFFECTIVE 03/08/13 Heparin IU/mL aPTT Seconds0.3 64.30.7 88.8 CBC W/AUTO [id number] 09:44:00* Test Item Value Reference Range Interpretation Comments WHITE BLOOD CELL (test code = WBC) 9.5 x10 3/uL 5.0-12.0 N RED BLOOD CELL (test code = RBC) 5.09 x10 6/uL 4.70-6.10 N HEMOGLOBIN (test code = HGB) 12.4 g/dL 14.0-18.0 L HEMATOCRIT (test code = HCT) 40.0 % 37.0-49.0 N MEAN CELL VOLUME (test code = MCV) 79 fL 80-94 L MEAN CELL HGB (test code = MCH) 24.4 pg 27-31 L MEAN CELL HGB CONCENTRATION (test code = MCHC) 31.0 g/dL 33-37 L RED CELL DISTRIBUTION WIDTH (test code = RDW) 14.8 % 11.5-15. 5 N PLATELET COUNT (test code = PLT) 288 x10 3/uL 130-400 N MEAN PLATELET VOLUME (test code = MPV) 10.4 fL 9.4-16.4 N NEUTROPHIL % (test code = NT%) 73.4 % 43-65 H IMMATURE GRANULOCYTE % (test code = IG%) 0.6 % 0.0-2.0 N LYMPHOCYTE % (test code = LY%) 19.3 % 20.5-45.5 L MONOCYTE % (test code = MO%) 4.7 % 5.5-11.7 L EOSINOPHIL % (test code = EO%) 1.8 % 0.9-2.9 N BASOPHIL % (test code = BA%) 0.2 % 0.2-1.0 N NUCLEATED RBC % (test code = NRBC%) 0.0 % 0-1.0 N NEUTROPHIL # (test code = NT#) 6.96 x10 3/uL 2.2-4.8 H IMMATURE GRANULOCYTE # (test code = IG#) 0.06 x10 3/uL 0-0.03 H LYMPHOCYTE # (test code = LY#) 1.83 x10 3/uL 1.3-2.9 N MONOCYTE # (test code = MO#) 0.45 x10 3/uL 0.3-0.8 N EOSINOPHIL # (test code = EO#) 0.17 x10 3/uL 0.0-0.2 N BASOPHIL # (test code = BA#) 0.02 x10 3/uL 0.0-0.1 N ABDOMEN-1VIEW (KUB)2018-12-22 09:21:00 [place] [address] Patient Name: UMER MORENO MR #: [id number] : 1945 Age/Sex: 73/M Req #: [id number] Adm Physician: Ordered by: EAMON LEE MD Report #: [id number] Location: [facility] Room/Bed: Procedure: [id number] DX /ABDOMEN-1VIEW (KUB) Exam Date: 12/22/18 Exam Time: 0850 REPORT STATUS: Signed Exam: KUB - 2 views Clinical History: Renal calculus. Comparison: CT abdome n/pelvis 11/07/2018. Findings: There is a 5 mm calcification overlying th e right lower pole kidney. No evidence of calcification overlying the left kid roni or expected course of the ureters. There are prostatic calcifications. Nonobstructive bowel gas pattern. Moderate amount of stool in the colon. No acute bony abnormality. Impression: A 5 mm calcification overlying the right lower pole kidney, corresponding to stone seen on prior CT from 11/08/19. Signed by: Dr. Siva Malcolm MD on 12/22/2018 9:25 AM Dictated By: SIVA MALCOLM MD 4 Transcr ibed By: JENNI on 12/22/18924 COPY TO: EAMON LEE MD CT ABDOMEN/PELVIS [id number] 10:12:00 [place] [address] Patient Name: UMER MORENO MR #: [id number] : 1945 Age/Sex: 73/M Req #: [id number] Adm Physician: Ordered by: EAMON LEE MD Report #: [id number] Location: CT Room/Bed: Procedure: [id number] CT /CT ABDOMEN/PELVIS WOW Exam Date: 11/07/18 Exam Time : 0850 REPORT STATUS: Signed EXA M: CT Abdomen and Pelvis WITHOUT and WITH contrast INDICATION: Renal neoplas m COMPARISON: CT abdomen/pelvis, 10/19/2018 TECHNIQUE: Abdomen and pelvis we re scanned utilizing a multidetector helical scanner from the lung base to the pubic symphysis before and after administration of IV contrast. Coronal and s agittal reformations were obtained. Imaging was obtained precontrast, arterial phase, venous phase and delayed phase. Renal mass protocol was performed, with abdomen and pelvis scanning on delayed imaging. Dose modulation, iterat harvinder reconstruction, and/or weight based adjustment of the mA/kV was utilized t o reduce the radiation dose to as low as reasonably achievable. IV CONTRAST: 100 mL of Isovue-370 ORAL CONTRAST: 900 cc water RADIATION DOSE: Total DLP: 1803.90 mGy*cm Estimated effective dose: (DLP x 0.015 x size factor) mSv COMPLICATIONS: No ne FINDINGS: LINES and TUBES: None. LOWER THORAX: Lung bases [place]. Heart size normal. HEPATOBILIARY: Diffuse low density hepatic parenchym a compatible with steatosis. No focal hepatic lesions. No biliary ductal dila tion. GALLBLADDER: No radio-opaque stones or sludge. No wall thickening. SPLEEN: No splenomegaly. PANCREAS: No focal masses or ductal dilatati on. ADRENALS: No adrenal nodules KIDNEYS/URETERS: Kidneys enhanc e symmetrically. No hydronephrosis or ureteral dilatation no filling defects in opacified collecting systems. There is a well marginated 1.1 cm peripheral low density mass in the lateral upper aspect of the left kidney. This is best seen on postcontrast imaging. The internal density measures under 10 HU on eac h phase of the examination with no evidence for enhancement. Again noted is a 5 mm calcification in the lower pole right collecting system compatible with nonobstructing intrarenal calculus. There is very mild perinephric stranding b ilaterally. GI TRACT: No abnormal distention, wall thickening, or evidence of bowel obstruction. There are scattered colonic diverticula with no CT evid ence for acute diverticulitis. The appendix is not conspicuously visualized b ut there is no right lower quadrant inflammation to suggest appendicitis. PELVIC ORGANS/BLADDER: Partially opacified urinary bladder unremarkable. No d iscrete abnormal mass or fluid collection in the pelvis. LYMPH NODES: No do minant lymph node mass is seen in the abdomen, retroperitoneum or pelvis. VESSELS: There are scattered calcified plaques along the abdominal aorta. No abdominal aortic aneurysm or dissection. Renal arteries are patent with an acc essory left renal artery noted. IVC unremarkable. Portal system is patent, on ly partially included on the venous phase which is targeted at the kidneys. PERITONEUM / RETROPERITONEUM: No pneumoperitoneum or ascites. BONES: No ac olamide or suspicious bony lesions. SOFT TISSUES: Superficial surrounding soft tissue unremarkable. Small left inguinal hernia containing fat. I MPRESSION: 1. 1.1 cm hypodensity in the lateral upper pole of the left kidne y is cyst density, well marginated and shows no evidence for enhancement. This is compatible with a small cortical cyst. 2. Again noted is a 5 mm nono bstructing intrarenal calculus the lower pole of the right collecting system. 3. No other acute finding or significant change from previous CT. Sig bety by: Dr. Yoandy Martinez M.D. on 11/07/2018 10:37 AM Dictated By: CELE MARTINEZ MD 1037 Transcr ibed By: JENNI on 11/07/18 1037 COPY TO: EAMON LEE MD [id number] 17:21:00 [place] [address] Patient Name: UMER MORENO MR #: [id number] : 1945 Age/Sex: 73/M Req #: [id number] Adm Physician: Ordered by: DEANA GARCIA M.D. Report #: [id number] Location: US Room/Bed: Procedure: [id number] US/US THYROID Exam Date: 11/01/18 Exam Time: 1348 REPORT STATUS: Signed EXAM: Thyroid Ultrasound INDICATION: THYROID CANCER. Thyroidectomy 2002. COSME RISON: None TECHNIQUE: Transverse and sagittal images were obtained of the th yroid bed. FINDINGS: Thyroid bed: Status post thyroidectomy. No res idual thyroid tissue or recurrent thyroid tissue is noted in the thyroid bed b ilaterally. Lymph nodes: No suspicious appearing lymph nodes. IM PRESSION: Status post thyroidectomy. No evidence to suggest residual or rec urrent disease. Signed by: Dr. Donnie Ramos M.D. on 11/01/2018 5:22 PM D ictated By: DONNIE RAMOS MD 21 T ranscribed By: JENNI on 11/01/181721 COPY TO: DEANA GARCIA M.D. CHEST 2 [id number] 15:13:00 [place] [address] Patient Name: UMER MORENO MR #: [id number] : 1945 Age/Sex: 73/M Req #: [id number] Adm Physician: Ordered by: DEANA GARCIA M.D. Report #: [id number] Location: Room/Bed: Procedure: [id number] DX/CHEST 2 VIEWS Exam Date: 11/01/18 Exam Time: 1340 REPORT STATUS: Signed EXAMI NATION: PA and lateral views of the chest. COMPARISON: None CLINICAL H ISTORY: Thyroid cancer DISCUSSION: Lines/tubes: None. Lung s: The lungs are well inflated and clear. No pneumonia or pulmonary edema. Pleura: No pleural effusion or pneumothorax. Heart and mediastinum: The cardiomediastinal silhouette is normal. Bones and soft tissues: No acute b jt abnormalities. IMPRESSION: No acute cardiopulmonary abnormal ities. Signed by: Dr. Darshana Johnson M.D. on 11/01/2018 3:14 PM Dictated By: DARSHANA JOHNSON MD 13 Transcribed By: JENNI on 11/01/181513 COPY TO: DEANA GARCIA M.D. CT ABDOMEN/PELVIS [id number] 10:30:00 [place] [address] Patient Name: UMER MORENO MR #: [id number] : 1945 Age/Sex: 73/M Req #: [id number] Adm Physician: Ordered by: EAMON LEE MD Report #: [id number] Location: CT Room/Bed: Procedure: [id number] CT /CT ABDOMEN/PELVIS WO Exam Date: 10/19/18 Exam Time: 909 REPORT STATUS: Signed EXAM: CT ABDOMEN AND PELVIS without IV CONTRAST DATE: 10/19/2018 Time stamp on Exam: 9:37 AM INDICATION: Hematuria COMPARISON: None TECHNIQUE: The abdomen and pelvis were scanned using a multidetector helical scanner. Coronal and sa gittal reformations were obtained. Routine protocol performed. Low-dose t echnique was utilized. IV Contrast: None Oral Contrast: None Radiation Dose: Total DLP 536.08 mGy*cm Estimated effective dose: DLP x 0.015 x size fac tor FINDINGS: LOWER THORAX: No consolidations LIVER: No masses with diffuse fatty infiltration of the liver. BILIARY: The gallbladder is unremarka ble. No ductal dilatation. SPLEEN: No masses PANCREAS: No masses AD RENALS: No nodules KIDNEYS: There are 2 small right lower pole renal stones wi th a composite measurement of 6 mm. No evidence of hydronephrosis. Contour abn ormality of the left upper interpolar region with subtle low density may repre sent a cyst or a mass. In a patient with gross hematuria CT renal mass protoco l follow-up would be of benefit. Nonspecific bilateral perinephric fat strandi ng. GI TRACT: No distention, wall thickening or evidence of obstruction. VESSELS: Vascular calcification. PERITONEUM/RETROPERITONEUM: No free air or fluid LYMPH NODES: No lymphadenopathy REPRODUCTIVE ORGANS: Prostate calcification. BLADDER: Unremarkable SOFT TISSUES: Unremarkable BONES: No suspicious bone lesions. Mild degenerative changes of the spine. IMPRESS ION: 1. Two small nonobstructing right lower pole renal stones. 2. Subtle le ft lateral renal interpolar contour abnormality with focal hypodensity. 3. F ollow-up renal mass protocol is recommended. 4. Diffuse fatty infiltration of the liver. Signed by: Dr. Mariya Rosales DO on 10/19/2018 10:43 AM Di ctated By: MARIYA ROSALES DO 1043 COPY TO: LESTER LEE RD, MD ABDOMEN-1VIEW (KU)2018-07-18 09:41:00 [place] [address] Patient Name: UMER MORENO MR #: [id number] : 1945 Age/Sex: 73/M Req #: [id number] Adm Physician: Ordered by: EAMON LEE MD Report #: [id number] Location: [facility] Room/Bed: Procedure: [id number] DX /ABDOMEN-1VIEW (KUB) Exam Date: 07/18/18 Exam Time: 0852 REPORT STATUS: Signed PROCE DURE: X-RAY ABDOMEN - KUB COMPARISON: KUB 03/11/18. INDICATIONS: CALCULUS OF KIDNEY FINDINGS: Again noted are right lower pole renal stones measuring up to 5 mm. No evidence of calcifications overlying the left kidney or the expected course of bilateral ureters. There is a non-o bstructed bowel-gas pattern. There are no acute osseous abnormalities. The katarzyna ng bases are clear. CONCLUSION: Similar appearance of right lower adele e renal stones measuring up to 5 mm. Dictated by: SIVA MALCOLM M.D. on 07/18/2018 at 9:41 Electronically approved by: SIVA MALCOLM M.D. on 07/18 at 9:41 Dictated By: SIVA MALCOLM MD 0 Transcribed By: ALIREZA on 07/18/18940 COPY TO: EAMON LEE MD ABDOMEN-1VIEW (KUB)2018-03-11 12:18:00 [place] [address] Patient Name: UMER MORENO MR #: [id number] : 1945 Age/Sex: 72/M Req #: [id number] Adm Physician: Ordered by: EAMON LEE MD Report #: [id number] Location: [facility] Room/B ed: Procedure: [id number] DX/ABDOMEN-1VIEW (KUB) Exam Date: 03/11/18 Exam Time: 0950 REPORT STATUS: Signed PROCEDURE: X-RAY ABDOMEN - KUB COMPARISON: Patients [facility], DX, ABDOMEN-1VIEW (KUB), 11/08/2017, 9:39. INDICATIONS: CALCUL US OF KIDNEY FINDINGS: Lung bases: Clear. Bowel: Normal bowel gas p attern. No dilated bowel loops. Calcifications: 2-3 tiny calcifications overly ing the lower pole of the right kidney are stable. No calcifications over the left renal shadow or along the expected course of the ureters. Bones/soft tissues: Unremarkable. CONCLUSION: Right intrarenal calculi as d escribed above. No new calculus has developed. Dictated by: Yuliana mendoza M.D. on 03/11/2018 at 12:18 Electronically approved by: Yuliana mendoza M.D. on 03/11/2018 at 12:18 Dictated By: YULIANA HOFF MD 1218 Transcri bed By: ALIREZA on 03/11/18 1218 COPY TO: EAMON LEE MD BLOOD BANK [id number] 20:12:00Negative (11/10/17 3:12 PM)[facility] JCCTK6744-90-40 20:03:0081[facility] VHPTB4035-07-91 20:03:0025 [facility] IAFHB6721-76-59 20:03:009.4[facility] PANEL 2017-11-10 20:03:03357Lhucicxy HermannCHEM VECNR1820-36-35 20:03:003.8[facility] MAMVI4457-76-40 20:03:68610Hrummiyn [facility]annCHE[facility] GCOFM2396-79-32 20:03:99876Ojtgvgrw [facility]CHE[facility] UQZMW4136-50-39 20:03:000.95[facility] TEMFL8134-50-69 20:03:009[facility] XWSNF0899-46-20 20:03:0013.8 [facility] IugmytuRYCTNQTQXV0705-33-26 20:03:008.1[facility]annHEMATOLOGY 2017-11-10 20:03:002.0[facility] UgpnanyGIGXZITMGG9104-01-84 20:03:0035.0[facility] OibqnmwQRCHQMHYIN7672-70-34 20:03:003.0[facility] CzqomwyLGRIJAODFK3201-99-19 20:03:000.3[facility] TkejkvbFOFFWFGAAB8528-64-60 20:03:0054.6[facility] Chivo ERFKFBFKLY8629-81-81 20:03:001.9[facility] FaeaykiZHRVXVBXQY8865-74-77 20:03:000.4 [facility] YjxqkcnKMZHMAOYED0709-27-67 20:03:001+ *ABN*(11/10/17 3:03 PM)[facility] CenterUihqfntDCQMGGVUBQ2004-29-40 20:03:000.1[facility] QvfdnecUJZNVODELX7770-77-73 20:03:008.6[facility] FissvkeONHLGUOSQX9516-93-51 20:03:00* Test Item Value Reference Range Interpretation Comments Max Amplitude Rapid (test code = Max Amplitude Rapid) 63 mm 52-71 [facility] CenterPcghwfvPHRNNFSQHN8659-44-18 20:03:001.0[facility]ann[facility]MATOLOG[facility] 2017-11-10 20:03:00* Test Item Value Reference Range Interpretation Comments Split Point Rapid (test code = Split Point Rapid) 0.6 min [facility]jsnnzyVWSAISNKTQ5480-06-82 20:03:00* Test Item Value Reference Range Interpretation Comments Angle Rapid (test code = Angle Rapid) 75 degrees 64-80 [facility] CenterQoywujwYIZROAZAYK1493-24-10 20:03:00* Test Item Value Reference Range Interpretation Comments R-time Rapid (test code = R-time Rapid) 0.8 min 0.4-0.7 [facility] CenterZfjgpovBLSJTXKGXF2854-80-01 20:03:00* Test Item Value Reference Range Interpretation Comments K-time Rapid (test code = K-time Rapid) 1.2 min 0.6-2.3 [facility] CenterAdsqbjkXIKHPITKVN4144-71-31 20:03:00* Test Item Value Reference Range Interpretation Comments ACT (TEG) Rapid (test code = ACT (TEG) Rapid) 121 s 86-118 [facility] CenterSabetluIJBIFAIPHO0336-74-42 20:03:00* Test Item Value Reference Range Interpretation Comments PTT (test code = PTT) 26.8 s 22.9-35.8 [facility] CenterTclmznyUYAKRCCHPR6127-58-48 20:03:00* Test Item Value Reference Range Interpretation Comments PT (test code = PT) 13.1 s 12.0-14.7 [facility] CenterRmbwxdmVNSSASKETE2676-70-74 20:03:00* Test Item Value Reference Range Interpretation Comments INR (test code = INR) 0.99 1 0.85-1.17 [facility] CenterOrmuksaALZIRBHSIN1936-54-33 20:03:008.8[facility] 2017-11-10 20:03:005.4[facility] HktfwlvUSCDEBTOSG2529-31-87 20:03:00* Test Item Value Reference Range Interpretation Comments MCH (test code = MCH) 25.8 pg 27.0-31.0 [facility] CenterDqmrzzaBVMVPYDRYU9396-13-21 20:03:0077.0[facility]annHEMATOLOGY 2017-11-10 20:03:0041.2[facility] YzhylqnIAEFCOGTHA2352-89-04 20:03:0013.8[facility] VmafdnrCVTCTWQAJX7663-46-52 20:03:005.35[facility] ZglcxtdUYMKXKAIZK3724-26-05 20:03:39734Aqzgskzk OmvihjcRSAULJSUCE4732-77-66 20:03:0015.1[facility] AVLZGSUMOQ6832-90-99 20:03:0033.5[facility] HermannSodium Erzyd5040-64-85 13:04:00 * Test Item Value Reference Range Interpretation Comments Sodium Level (test code = 2951-2) 139 136-[address] [facility] HospitalPotassium Yozsh7341-80-34 13:04:00* Test Item Value Reference Range Interpretation Comments Potassium Level (test code = 2823-3) 4.1 3.5-5.[address] [facility] [facility] HospitalChloride Zbeua4745-08-05 13:04:00* Test Item Value Reference Range Interpretation Comments Chloride Level (test code = 2075-0) 103 98-[address] [facility] [facility] HospitalCarbon Dioxide Ujvoa0424-16-65 13:04:00* Test Item Value Reference Range Interpretation Comments Carbon Dioxide Level (test code = 2028-9) 29 22-[address] [facility] HospitalAnion Mku1638-61-49 13:04:00* Test Item Value Reference Range Interpretation Comments Anion Gap (test code = 99944-8) 11.1 8-[address] [facility] [facility] HospitalBlood Urea Xxtmocwr6964-42-69 13:04:00* Test Item Value Reference Range Interpretation Comments Blood Urea Nitrogen (test code = 3094-0) 10 7-[address] [facility] HospitalCreatinine2018-03-14 13:04:00* Test Item Value Reference Range Interpretation Comments Creatinine (test code = 2160-0) 1.06 0.72-1.[address] [facility] HospitalBUN/Creatinine Aegrz4927-42-37 13:04:00* Test Item Value Reference Range Interpretation Comments BUN/Creatinine Ratio (test code = 3097-3) 9 6-[address] [facility] HospitalEstimat Glomerular Filtration Rate 2017-11-10 13:04:00* Test Item Value Reference Range Interpretation Comments Estimat Glomerular Filtration Rate (test code =

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
[2020-04-16] MEDS ORDERED: ACETAMINOPHEN 325 MG TAB PO ONE (16:45)
--- NOTE | 2020-04-16 18:11 | Diagnostic Imaging Report ---
EXAMINATION: CT of the abdomen and pelvis without contrast. TECHNIQUE: Spiral CT images of the abdomen and pelvis were performed from the lung bases to the lesser trochanters. No intravenous contrast was given per renal stone protocol.. Coronal and sagittal reformatted images were obtained. COMPARISON: Renal ultrasound 12/29/2019 CLINICAL HISTORY:Abdominal pain, UTI symptoms and hematuria DISCUSSION: ABSENCE OF INTRAVENOUS CONTRAST DECREASES SENSITIVITY FOR DETECTION OF FOCAL LESIONS AND VASCULAR PATHOLOGY. ABDOMEN/PELVIS: LOWER THORAX: Lung bases are grossly clear. HEPATOBILIARY: Diffuse hepatic steatosis. Hepatic size and contour are normal. No focal lesions. No intra or extrahepatic biliary ductal dilation. GALLBLADDER: No radio-opaque stones or sludge. No wall thickening. SPLEEN: No splenomegaly. PANCREAS: No focal masses or ductal dilatation. ADRENALS: No adrenal nodules. KIDNEYS/URETERS: No renal or ureteral calculi, hydronephrosis or obstruction. No contour abnormalities. 1.6 cm fluid density simple cyst in the left interpolar region (series 3, image 62). Mild to moderate bilateral perinephric stranding. No contour abnormalities. PELVIC ORGANS/BLADDER: Moderate circumferential bladder wall thickening. Prostate measures 4.8 x 3.4 x 3.9 cm (estimated volume 33 mL), and contains dystrophic calcifications. Seminal vesicles are unremarkable. PERITONEUM/RETROPERITONEUM: No free air or fluid. LYMPH NODES: No intra-abdominal,retroperitoneal, pelvic or inguinal lymphadenopathy. VESSELS: Mild atherosclerotic calcification of the distal abdominal aorta. GI TRACT: No bowel dilation or evidence of obstruction. BONES AND SOFT TISSUES: No aggressive lytic or suspicious focal sclerotic lesions. Small bilateral fat-containing inguinal hernias, left greater than right. Soft tissues are otherwise unremarkable IMPRESSION: 1. Moderate circumferential bladder wall thickening. This may be secondary to bladder outlet obstruction from a mildly enlarged prostate, however, cystitis is also a consideration. 2. Mild to moderate bilateral perinephric stranding. No renal, ureteral or bladder calculi. No hydronephrosis or obstruction. Unable to evaluate for pyelonephritis given the lack of intravenous contrast. 3. Diffuse hepatic steatosis. Signed by: Dr. Nick Malave M.D. on 04/16/2020 6:08 PM
== END 2020-04-16 18:48 | disposition home or self-care (01) ==
LOC: ER 14:56
DX: N39.0 Urinary tract infection, site not specified (principal); R50.9 Fever, unspecified; M54.5 Low back pain
CPT/HCPCS: 36415; 71045; 74176; 80053; 81001; 83605; 85025; 87086; 87186; 99284

== ENCOUNTER 2020-04-25 18:44 | Inpatient (IN) | payer MEDICARE ==
[~2020-04-25] VITALS: Ht 165.1 cm; Wt 79.4 kg
[2020-04-25] MEDS ORDERED: CEFEPIME 2 GM/NS 0.9% 100 ML 100 ML IV ONE (19:00)
[2020-04-25] MEDS ORDERED: SODIUM CHLORIDE 0.9% 1000ML 1,000 ML IV ONE (19:00)
[2020-04-25] MEDS ORDERED: ACETAMINOPHEN 325 MG TAB PO ONE (19:00)
[2020-04-25 19:17] LABS: BASOPHILS # (AUTO) 0.1 (0.0-0.1); BASOPHILS % 0.3 % (0.0-1.0); EOSINOPHILS % 0.2 % (0.0-6.0); HEMATOCRIT 39.9 % (38.2-49.6); LYMPHOCYTES # (AUTO) 1.2 (1.0-3.2); LYMPHOCYTES % 6.3 % (18.0-39.1); MEAN CORPUSCULAR HEMOGLOBIN 24.3 pg (28-32); MEAN CORPUSCULAR HGB CONC 32.6 g/dL (31-35); MEAN CORPUSCULAR VOLUME 74.4 fL (81-99); MONOCYTES # (AUTO) 1.3 (0.2-0.8); MONOCYTES % 6.9 % (4.4-11.3); NEUTROPHILS # (AUTO) 16.2 (2.1-6.9); NEUTROPHILS % 84.7 % (38.7-80.0); PLATELET COUNT 518 x10e3/uL (140-360); RED BLOOD COUNT 5.36 x10e6/uL (4.3-5.7); RED CELL DISTRIBUTION WIDTH 14.9 % (11.7-14.4)
--- NOTE | 2020-04-25 19:17 | Emergency Department Note ---
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 pt seen in this er for same on 04/16/20. . Historian: Patient Arrival Mode: Car Manager Gyn Required: No Onset (how long ago): week(s) (4) Location: penile Quality: dysuria, frequency Radiation: Reports non-radiation Severity: moderate Onset quality: gradual Duration (how long): week(s) (4) Timing of current episode: constant Progression: worsening Context: Denies recent illness, Denies recent surgery Relieving factors: none Exacerbating factors: none Associated symptoms: Reports weakness Treatments prior to arrival: none Past Medical/Family History Physician Review I have reviewed the patient's past medical and family history. Any updates have been documented here. Past Medical History Recent Fever: Yes Clinical Suspicion of Infectio: Yes New/Unexplained Change in Ment: No Past Medical History: Hypertension, Diabetes, Hypothyroidism, UTI's, Hype rlipedemia Other Medical History: NEUROPATHY Other Surgery: rotater cuff, hernia repair, thyroid removed Social History Smoking Cessation: Never Smoker Alcohol Use: Occasional Any Illegal Drug Use: No Family History Other family history htn,dm Other Last Tetanus: unk Review of Systems Review of Systems Constitutional: Reports weakness EENTM: Reports no symptoms Cardiovascular: Reports no symptoms Respiratory: Reports no symptoms Gastrointestinal: Reports no symptoms Genitourinary: Reports dysuria, Reports frequency, Reports pain Musculoskeletal: Reports no symptoms Integumentary: Reports no symptoms Neurological: Reports no symptoms Psychological: Reports no symptoms Endocrine: Reports no symptoms Hematological/Lymphatic: Reports no symptoms Physical Exam Related Data Allergies: Coded Allergies: Penicillins (Verified Allergy, Mild, 06/02/12) levofloxacin (Verified Allergy, Mild, ITCHING, 10/27/11) Uncoded Allergies: IVP DYE (Allergy, Mild, 06/02/12) Triage Vital Signs Vital Signs Date Time Temp Pulse Resp B/P (MAP) Pulse Ox O2 Delivery O2 Flow Rate FiO2 04/25/20 18:48 102.9 93 20 125/70 100 Room Air Vital signs reviewed: Yes Physical Exam CONSTITUTIONAL Constitutional: Present well-developed, Present well-nourished; Absent distressed, Absent ill appearing HENT HENT: Present normocephalic, Present atraumatic, Present oropharynx clear/moist, Present nose normal HENT L/R: Present left ext ear normal, Present right ext ear normal EYES Eyes: Reports PERRL, Reports conjunctivae normal NECK Neck: Present ROM normal PULMONARY Pulmonary: Present effort normal, Present other (BREATH SOUNDS DECREASED AT BASES BILATERAL) CARDIOVASCULAR Cardiovascular: Present regular rhythm, Present heart sounds normal, Present capillary refill normal, Present normal rate GASTROINTESTINAL Abdominal: Present soft, Present nontender, Present bowel sounds normal GENITOURINARY Genitourinary: Present penis normal SKIN Skin: Present warm, Present dry MUSCULOSKELETAL Musculoskeletal: Present ROM normal NEUROLOGICAL Neurological: Present alert, Present oriented x 3, Present no gross motor or sensory deficits PSYCHOLOGICAL Psychological: Present mood/affect normal, Present judgement normal Results Laboratory Laboratory Laboratory Tests Test 04/25/20 20:45 04/25/20 20:30 04/25/20 18:50 Coronavirus (PCR) Not detected (NOTDETECTED) Urine Color Yellow (YELLOW) Urine Clarity Sl cloudy (CLEAR) Urine pH 5 (5 - 7) Urine Specific [place] 1.010 (1.010-1.025) Urine Protein Trace (NEGATIVE) Urine Glucose (UA) Negative (NEGATIVE) Urine Ketones Negative (NEGATIVE) Urine Blood Trace (NEGATIVE) Urine Nitrite Negative (NEGATIVE) Urine Bilirubin Negative (NEGATIVE) Urine Urobilinogen 0.2 mg/dL (0.2 - 1) Urine Leukocyte Esterase Moderate (NEGATIVE) Urine RBC 0-5 /HPF (0-5) Urine WBC 21-50 /HPF (0-5) Urine Epithelial Cells None /LPF (NONE) Urine Bacteria Many /HPF (NONE) White Blood Count 19.14 x10e3/uL (4.8-10.8) Red Blood Count 5.36 x10e6/uL (4.3-5.7) Hemoglobin 13.0 g/dL (14.0-18.0) Hematocrit 39.9 % (38.2-49.6) Mean Corpuscular Volume 74.4 fL (81-99) Mean Corpuscular Hemoglobin 24.3 pg (28-32) Mean Corpuscular Hemoglobin Concent 32.6 g/dL (31-35) Red Cell Distribution Width 14.9 % (11.7-14.4) Platelet Count 518 x10e3/uL (140-360) Neutrophils (%) (Auto) 84.7 % (38.7-80.0) Lymphocytes (%) (Auto) 6.3 % (18.0-39.1) Monocytes (%) (Auto) 6.9 % (4.4-11.3) Eosinophils (%) (Auto) 0.2 % (0.0-6.0) Basophils (%) (Auto) 0.3 % (0.0-1.0) Neutrophils # (Auto) 16.2 (2.1-6.9) Lymphocytes # (Auto) 1.2 (1.0-3.2) Monocytes # (Auto) 1.3 (0.2-0.8) Eosinophils # (Auto) 0.0 (0.0-0.4) Basophils # (Auto) 0.1 (0.0-0.1) Absolute Immature Granulocyte (auto 0.31 x10e3/uL (0-0.1) Prothrombin Time 13.3 seconds (11.9-14.5) Prothromb Time International Ratio 0.96 Activated Partial Thromboplast Time 34.2 seconds (23.8-35.5) Sodium Level 123 mmol/L (136-145) Potassium Level 5.0 mmol/L (3.5-5.1) Chloride Level 92 mmol/L (98-107) Carbon Dioxide Level 17 mmol/L (22-29) Anion Gap 19.0 mmol/L (8-16) Blood Urea Nitrogen 22 mg/dL (7-26) Creatinine 1.45 mg/dL (0.72-1.25) Estimat Glomerular Filtration Rate 48 ML/MIN (60-) BUN/Creatinine Ratio 15 (6-25) Glucose Level 172 mg/dL (74-118) Lactic Acid Level 1.2 mmol/L (0.5-2.0) Calcium Level 10.1 mg/dL (8.4-10.2) Total Bilirubin 0.7 mg/dL (0.2-1.2) Aspartate Amino Transf (AST/SGOT) 54 IU/L (5-34) Alanine Aminotransferase (ALT/SGPT) 71 IU/L (0-55) Alkaline Phosphatase 94 IU/L (40-150) Total Protein 8.2 g/dL (6.5-8.1) Albumin 2.8 g/dL (3.5-5.0) Globulin 5.4 g/dL (2.3-3.5) Albumin/Globulin Ratio 0.5 (0.8-2.0) Lab results reviewed: Yes Imaging Imaging results reviewed: Yes Impressions Procedure: [id number] DX/CHEST SINGLE (PORTABLE) Exam Date: 04/25/20 Exam Time: 1944 REPORT STATUS: Signed EXAMINATION: CHEST SINGLE (PORTABLE) INDICATION: Fever COMPARISON: Chest x-ray on 04/16/2020. FINDINGS: TUBES and LINES: None. LUNGS: Normal lung volumes. There is hazy opacification the bilateral lung bases, right more to left. PLEURA: No pleural effusion or pneumothorax. HEART AND MEDIASTINUM: The cardiomediastinal silhouette is unremarkable. BONES AND SOFT TISSUES: No acute osseous lesion. Soft tissues are unremarkable. UPPER ABDOMEN: No free air under the diaphragm. IMPRESSION: Hazy opacification of bilateral lung bases, right more to left which may represent aspiration and/or developing multifocal pneumonia in the proper clinical setting. Signed by: Corinna Huynh MD on 04/25/2020 8:23 PM Dictated By: CORINNA HUYNH MD 22 Transcribed By: JENNI on 04/25/202022 COPY TO: STONEY OBRIEN MD~ Assessment & Plan Medical Decision Making MDM pt with urinary symptoms for 4 weeks now with c/o feeling worse and now with generalized weakness, pt noted to be febrile on arrival to er meets sirs criteria of temp 102.9 and heart rate 94 cbc, cmp, ua, urine culture, blood cultures, cxr, lactic acid ordered to eval for leukocytosis, sepsis, uti, pneumonia, electrolyte abnormality, cefepime 2 grams iv ordered tylenol 975 mg po ordered ns 1 liter iv bolus ordered Patient found at 19,000 white count patient also found to have bibasilar infiltrates on chest x-ray so now Covid is a possibility on this patient. However superimposed bacterial infection is not ruled out. Initial lactic acid negative. COVID 19 TEST ORDERED COVID 19 TEST NEGATIVE I SPOKE WITH DR RANDLE ADMIT TO INPATIENT, I SPOKE WITH DR LEE (PT'S UROLOGIST) FOR CONSULTATION ON UTI Assessment & Plan Final Impression: (1) UTI (urinary tract infection) (2) Sepsis (3) Pneumonia (4) Hyponatremia Depart Disposition: ADMITTED Last Vital Signs Date Time Temp Pulse Resp B/P (MAP) Pulse Ox O2 Delivery O2 Flow Rate FiO2 04/25/20 18:48 102.9 93 20 125/70 100 Room Air Home Meds Reported Medications Metformin Hcl (METFORMIN HCL) 500 Mg Tablet, 500 MG PO BID, #60 TAB 03/25/15 Tamsulosin Hcl (TAMSULOSIN HCL) 0.4 Mg Cap.er.24h, 0.4 MG PO DAILY 03/25/15 Solifenacin Succinate (VESICARE) 5 Mg Tablet, 5 MG PO DAILY, #30 TAB 03/25/15 Fenofibrate Nanocrystallized (FENOFIBRATE) 145 Mg Tablet, 145 MG PO DAILY 03/25/15 Minocycline Hcl (MINOCYCLINE HCL) 50 Mg Capsule, 100 MG PO DAILY, #60 TAB 03/25/15 [Synthroid] No Conflict Check, 125 MCG PO DAILY 04/11/12 Lansoprazole (PREVACID SOLUTAB) 30 Mg Tabdp, 30 MG PO DAILY 04/11/12 [Avodart] No Conflict Check, 5 MG PO DAILY 04/11/12 [Amarayl] No Conflict Check, 2 MG PO DAILY 04/11/12 [Lisinopril] No Conflict Check, 5 MG PO DAILY 04/11/12 [Neurontin] No Conflict Check, 600 MG PO DAILY 04/11/12 Medications in the ED Acetaminophen 975 mg ONCE ONCE PO Last administered on 04/25/20at 19:01; Admin Dose 975 MG; Start 04/25/20 at 19:00; Stop 04/25/20 at 19:01; Status DC Sodium Chloride 1,000 ml @ 999 mls/hr Q1H1M ONCE IV Last administered on 04/25/20at 19:09; Admin Dose 999 MLS/HR; Start 04/25/20 at 19:00; Stop 04/25/20 at 20:00 Cefepime HCl 100 ml @ 200 mls/hr ONCE ONCE IV Last administered on 04/25/20at 19:09; Admin Dose 200 MLS/HR; Start 04/25/20 at 19:00; Stop 04/25/20 at 19:29 STONEY OBRIEN MD Apr 25, 2020 19:17
--- OUTSIDE RECORDS SUMMARY | 2020-04-25 19:19 | XMS REPORT | Clinical Summary ---
Author Author [facility] Address Unknown Phone Unavailable Care Team Providers Care Permastone Applicator Name Role Phone PCP Unavailable Allergies Not [...] VACCINE (#1) 2020 Results Not on fileafter 04/25/2019
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
--- OUTSIDE RECORDS SUMMARY | 2020-04-25 19:19 | XMS REPORT | Clinical Summary ---
Author Author [facility] Organization [facility] Address Unknown Phone Unavailable Care Team Providers Care Snuff Grinder Name Role Phone Girish Márquez MD PCP [phone] Allergies Comments Active Allergy Reactions Severity [...] Surgery Sy Lacy MD Strever, Michael Shane, JAYA 04/26/2019 Anesthesia General Surgery Event Eamon Taylor MD 04/26/2019 Hospital General Surgery Encounter after 04/25/2019 Family History Medical History Relation Name Comments [...] (2 of 2 - PPSV23) INFLUENZA VACCINE 05/30/2020 Procedures Comments Procedure Name Priority Date/Time Associated Diag nosis EXTRACORPOREAL SHOCKWAVE 04/26/2019 KIDNEY STONE LITHOTRIPSY (ESWL) 12:47 PM CDT N20.0 Special Needs NEXTMED CONF # [id number] POC GLUCOSE Routine 04/26/2019 12:08 PM CDT XR ABDOMEN 1 VW Routine 04/26/2019 11:41 AM CDT after 04/25/2019 Results * POC glucose (04/26/2019 12:08 PM CDT) POC glucose 110 (H) 65 - 99 mg/dL [place] Comment: AMISH NIMISHA Meter ID: [id number] [facility] Ambulance Assistant: Bryson Krishna Specimen Performing Organization Address City/[facility] [place] [address] [place], [place] [address] PATHOLOGY AND GENOMIC MEDICINE [place] [address] [address] [place] [address] [facility] * XR Abdomen 1 Vw (04/26/2019 11:41 AM CDT) Specimen Narrative Performed At EXAMINATION: XR ABDOMEN 1 VW [facility] CLINICAL HISTORY: KUB for renal stone location preop COMPARISON: 02/27/2019 IMPRESSION: A couple of faint 3 mm calculi overlie the right lower renal pole. The bowel gas pattern is unremarkable. There is no significant skeletal abnorm ality. [id number] Procedure Note Hm Interface, Radiology Results Incoming - 04/26/2019 11:53 AM CDT EXAMINATION: XR ABDOMEN 1 VW CLINICAL HISTORY: KUB for renal stone location preop COMPARISON: 02/27/2019 IMPRESSION: A couple of faint 3 mm calculi overlie the right lower renal pole. The bowel gas pattern is unremarkable. There is no significant skeletal abnormality. [id number] Performing Organization Address City/[facility] [place] one Number [facility] [address] [place] [address] after 04/25/2019 Insurance Type Payer Benefit Subscriber ID Effective Phone Address Plan / Dates Group PPO HUMANA MEDICARE HUMANA xxxxxxxxx 2017-P MEDICARE resent PPO/PFFS/E [facility] Advance Directives For more information, please contact: [phone] Patient Photoresist Printer Explanation Type Date Recorded Advance Directives, 04/26/2019 11:23 AM Living Will and Medical Power of Elementary Math Tutor
[2020-04-25 19:29] LABS: INR 0.96; PROTHROMBIN TIME 13.3 seconds (11.9-14.5)
[2020-04-25 19:30] LABS: PARTIAL THROMBOPLASTIN TIME 34.2 seconds (23.8-35.5)
[2020-04-25 19:39] LABS: ALBUMIN 2.8 g/dL (3.5-5.0); ALBUMIN/GLOBULIN RATIO 0.5 (0.8-2.0); CALCIUM 10.1 mg/dL (8.4-10.2); CREATININE, SERUM 1.45 mg/dL (0.72-1.25)
--- NOTE | 2020-04-25 20:26 | Diagnostic Imaging Report ---
EXAMINATION: CHEST SINGLE (PORTABLE) INDICATION: Fever COMPARISON: Chest x-ray on 04/16/2020. FINDINGS: TUBES and LINES: None. LUNGS: Normal lung volumes. There is hazy opacification the bilateral lung bases, right more to left. PLEURA: No pleural effusion or pneumothorax. HEART AND MEDIASTINUM: The cardiomediastinal silhouette is unremarkable. BONES AND SOFT TISSUES: No acute osseous lesion. Soft tissues are unremarkable. UPPER ABDOMEN: No free air under the diaphragm. IMPRESSION: Hazy opacification of bilateral lung bases, right more to left which may represent aspiration and/or developing multifocal pneumonia in the proper clinical setting. Signed by: Corinna Robertson MD on 04/25/2020 8:23 PM
[2020-04-25 20:51] LABS: BILIRUBIN,URINE NEGATIVE (NEGATIVE); CLARITY,URINE SL CLOUDY (CLEAR); COLOR,URINE YELLOW (YELLOW); KETONES,URINE NEGATIVE (NEGATIVE); LEUKOCYTE ESTERASE ,URINE MODERATE (NEGATIVE); NITRITE,URINE NEGATIVE (NEGATIVE); PROTEIN,URINE DIPSTICK TRACE (NEGATIVE); URINE UROBILINOGEN 0.2 mg/dL (0.2 - 1)
[2020-04-25 21:02] LABS: BACTERIA,URINE MANY /HPF; RBC,URINE 0-5 /HPF (0-5); WBC,URINE (MAN) 21-50 /HPF (0-5)
[2020-04-25] MEDS: CEFEPIME 2 GM/NS 0.9% 100 ML 100 ML IV SCH (21:53)
[2020-04-25] MEDS: SODIUM CHLORIDE 0.9% 1000ML 1,000 ML IV SCH (21:59)
[2020-04-25] MEDS: AZITHROMYCIN 500MG/SOD CHL 0.9% 250ML BAG IV SCH (21:59)
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
--- OUTSIDE RECORDS SUMMARY | 2020-04-25 21:59 | XMS REPORT | Clinical Summary ---
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
--- OUTSIDE RECORDS SUMMARY | 2020-04-25 21:59 | XMS REPORT | Clinical Summary ---
Author Author [facility] Organization [facility] Address Unknown Phone Unavailable Care Team Providers Care Biosolids Management Technician Name Role Phone Girish Márquez MD PCP [phone] Allergies Comments Active Allergy Reactions Severity [...] CDT N20.0 Special Needs [facility] CONF # [id number] POC GLUCOSE Routine 04/26/2019 12:08 PM CDT XR ABDOMEN 1 VW Routine 04/26/2019 11:41 AM CDT after 04/25/2019 Results * POC glucose (04/26/2019 12:08 PM CDT) POC glucose 110 (H) 65 - 99 mg/dL [place] Comment: CHURCH NIMISHA Meter ID: [id number] [facility] [place] Supervisor Cook Room: Bryson Krishna Specimen Performing Organization Address City/[facility] Cent[facility]ode [place] [address] [place] [address] PATHOLOGY AND GENOMIC MEDICINE [place] [address] [address] [place] [address] [facility] [place] * XR Abdomen 1 Vw (04/26/2019 11:41 AM CDT) Specimen Narrative Performed At EXAMINATION: XR ABDOMEN 1 VW [facility] CLINICAL HISTORY: KUB for renal stone location preop COMPARISON: 02/27/2019 IMPRESSION: A couple of faint 3 mm calculi overlie the right lower renal pole. The bowel gas pattern is unremarkable. There is no significant skeletal abnorm ality. [id number] Procedure Note Hm Interface, Radiology Results Incoming - 04/26/2019 11:53 AM CDT EXAMINATION: XR ABDOMEN 1 VW CLINICAL HISTORY: KUB for renal stone location preop COMPARISON: 02/27/2019 IMPRESSION: A couple of faint 3 mm calculi overlie the right lower renal pole. The bowel gas pattern is unremarkable. There is no significant skeletal abnormality. 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
[2020-04-25] MEDS ORDERED: ACETAMINOPHEN 325 MG TAB PO PRN (22:00)
[2020-04-25] MEDS ORDERED: DEXTROSE 50% SYRINGE 50 ML IV PRN (22:00)
[2020-04-25] MEDS ORDERED: SODIUM CHLORIDE 0.9% 1000ML 1,000 ML ONE (22:01)
[2020-04-25] MEDS ORDERED: TEMAZEPAM 7.5 MG CAP PO PRN (23:15)
[2020-04-25] MEDS ORDERED: HYDRALAZINE HCL 20 MG/ML VIAL IV PRN (23:15)
[2020-04-25] MEDS ORDERED: POLYETHYLENE GLYCOL 3350 17 GM PACK PO PRN (23:15)
[2020-04-25] MEDS ORDERED: ONDANSETRON HCL INJ 2MG/ML 2ML 2 MG/ML VIAL IV PRN (23:15)
[2020-04-25 23:24] VITALS: BP 111/64
[2020-04-25 23:49] VITALS: BP 103/69
[2020-04-26] VITALS (7 sets, daily range): BP systolic 110–127; BP diastolic 45–71
[2020-04-26] MEDS: LEVOTHYROXINE SODIUM 125 MCG TAB PO SCH ×2 (02:15→08:39)
--- NOTE | 2020-04-26 03:43 | History and Physical ---
PRIMARY CARE PHYSICIAN: Dr. Girish Márquez. CONSULTING PHYSICIANS: 1. Dr. Eamon Taylor with Urology. 2. Dr. Avinash Callahan with Pulmonology. CHIEF COMPLAINT: Painful urination. HISTORY OF PRESENT ILLNESS: The patient is a 74-year-old male with a 3 to 4 week history of dysuria and frequency, presenting to the emergency department with a temperature of 102.9, who was seen in the Emergency Department at [facility] on 04/16/2020, with the same signs and symptoms. He denies being seen at any or Urgent Care center by his PCP since that previous admission. He denies use of antibiotics at home since his discharge. Denies any sick contacts. Denies being around anyone with Coronavirus that he is aware. PAST MEDICAL HISTORY: Hypertension, diabetes mellitus, hyperlipidemia, UTIs, hypothyroidism, neuropathy, BPH, minimal coronary artery disease. PAST SURGICAL HISTORY: 1. Right rotator cuff repair. 2. Left rotator cuff repair on 04/12/2012. 3. Thyroidectomy. 4. On 10/28/2011, left inguinal hernia repair by Dr. Vish Mcfarland also in the left rotator cuff repair that was done on 04/12/[address] Justo Cabrera. 5. On 03/26/2015, left heart catheterization with ejection fraction of 60% and minimal coronary artery disease. FAMILY HISTORY: Father had BPH in his 60s. He had a CVA. SOCIAL HISTORY: The patient lives with his . He denies any illicit drug use. Denies any current tobacco use. He stopped smoking in his 40s. He smoked one pack per week from age 16 to age 42, i.e. 26 years. He is retired. He drinks alcohol on occasion, [place]ron[place] nelson/bourbon. ALLERGIES: PENICILLIN, LEVOFLOXACIN, IVP DYE. HOME MEDICATIONS: Questionable home medication list. However, what is included is fenofibrate 145 mg daily, metformin 500 mg b.i.d., minocycline 100 mg daily, VESIcare 5 mg daily, tamsulosin 0.4 mg daily, Prevacid 30 mg daily, Amaryl 2 mg daily, Avodart 5 mg daily, lisinopril 5 mg daily, Neurontin 600 mg daily, Synthroid 125 mcg daily. REVIEW OF SYSTEMS: CONSTITUTIONAL: The patient denies any recent weight loss or weight gain. Denies having chills previously, but currently has chills. He has had an elevated temperature for several days and generalized weakness. No fever at home, but admitted with a fever of 102.9. He has had frequency and dysuria, although unknown diabetic. He does not check his blood glucose at home. His last bowel movement was 04/24/2020. A 14-point review of systems was completed. The patient denies any current problems with the following systems, eyes, ears, nose, throat, respiratory, psychiatric, integumentary, cardiovascular, gastrointestinal, musculoskeletal, neurologic, allergic/immunological, hematologic/lymphatic. PHYSICAL EXAMINATION: VITAL SIGNS: Temperature 97.8, T-max 102.9, pulse 65, blood pressure 103/69, it was 125/70 on admission, respirations 16, and oxygen saturation 97% at the time of encounter. SpO2 of 86% on room air and oxygen applied by respiratory therapist. Height 5 feet 5 inches. Weight 175 pounds. BMI 29.11. GENERAL: Supine, in no acute distress with rohan. LUNGS: Bibasilar lung sounds diminished. No elevated work of breathing. Respirations unlabored. Supplemental oxygen of 2 L/min via nasal cannula. HEENT: EOMI. Neck is supple. No thyromegaly, lymphadenopathy, or JVD noted. CARDIOVASCULAR: Regular rate and rhythm without murmur. Normal saline IV fluids via peripheral IV. ABDOMEN: Bowel sounds positive. Soft, nontender. No guarding. EXTREMITIES: No pitting edema. No clubbing, cyanosis, or signs of DVT. NEUROLOGICAL: GCS is 15. Nonfocal. LABORATORY DATA: WBC 19.14, hemoglobin 13, hematocrit 39.9, platelets 518, neutrophils 84.7%. PT 13.3, INR 0.96, PTT 34.2. Sodium 123, potassium 5, chloride 92, serum CO2 of 17, anion gap 19, BUN 22, creatinine 1.45, estimated GFR 48, BUN and creatinine ratio 15, glucose 172, lactic acid 1.2, calcium 10.1, total bilirubin 0.7, AST 54, ALT 71, alkaline phosphatase 94, total protein 8.2, albumin 2.8. Urinalysis was completed showing yellow urine, slightly cloudy clarity, pH 5, specific gravity 1.01, protein trace, negative for glucose, negative for ketones, trace amount of blood, negative for nitrites, moderate amount of leukocyte esterase, negative for bilirubin, urobilinogen 0.2, rbc's 0 to 5, wbc's 21 to 50, bacteria many. Coronavirus PCR not detected on 04/25/2020. Blood cultures x2 and urine culture collected and are pending. IMAGING/OTHER: Chest x-ray per radiologist impression is hazy opacification of bilateral lung bases, right more than left, which may represent aspiration and/or developing multifocal pneumonia in the proper clinical setting. A 12-lead ECG was not completed. ASSESSMENT AND PLAN: 1. Severe sepsis, POA, (with acute kidney injury) due to urinary tract infection and bilateral multifocal pneumonia. WBC 19.1, lactic acid 1.2, neutrophils 84.7%, T-max 102.9. Known penicillin allergy. Continue IV antibiotics, azithromycin, and cefepime. Monitor WBCs. Monitor for subjective improvement. 2. Acute urinary tract infection, POA, with urinary retention and benign prostatic hyperplasia. Urology consulted. Continue IV cefepime, normal saline, IV fluids. Await final urine culture and sensitivity results. 3. Bilateral multifocal pneumonia, POA. Continue IV azithromycin and cefepime. DuoNebs q.4 hours while awake, have been ordered as well as Mucinex DM b.i.d. Pulmonology consulted. Monitor any chest x-ray results. Supplemental oxygen to keep oxygen saturation greater than or equal to 94%. 4. Acute kidney injury. BUN 22, creatinine 1.45, estimated GFR 48. Continue IV hydration. Monitor renal labs. Avoid nephrotoxic agents. 5. Acute hyponatremia and hypochloremia. Sodium 123, chloride 92. Continue IV normal saline. Monitor electrolytes. 6. Metabolic acidosis. Serum bicarbonate 17. Monitor for improvement with IV antibiotics and IV fluids. Consider addition of sodium bicarbonate and IV fluids if no improvement. 7. Hypotension due to number #1, history of hypotension. Current blood pressure 103/69. Monitor for improvement with IV fluids and IV antibiotics. Consider use of vasoactive drip such as Levophed if improvement is unsatisfactory. 8. Uncontrolled type 2 diabetes mellitus with hyperglycemia and diabetic neuropathy. Serum glucose 172. Monitor fingerstick blood glucose levels before meals and at bedtime. Resume any oral diabetic medications from home once medications have been reviewed with the patient, so that medication reconciliation can occur. Continue ADA diet. Hemoglobin A1c in the morning. Fingerstick blood glucose levels before meals and at bedtime. 9. Hypothyroidism. TSH in the morning. Resume home dose of levothyroxine. 10. Prophylaxis. Pepcid and SCDs. H and P, billing code [id number]. Time spent 60 minutes. Dictated by Sanket Olson, BLANK DRILLER MD FARNAZ Knight/ANNALISA /[id number]
[2020-04-26 06:12] LABS: BASOPHILS % 0.1 % (0.0-1.0); EOSINOPHILS % 0.1 % (0.0-6.0); HEMATOCRIT 35.9 % (38.2-49.6); HEMOGLOBIN 12.2 g/dL (14.0-18.0); LYMPHOCYTES # (AUTO) 0.8 (1.0-3.2); LYMPHOCYTES % 3.7 % (18.0-39.1); MEAN CORPUSCULAR VOLUME 76.5 fL (81-99); MONOCYTES # (AUTO) 1.5 (0.2-0.8); MONOCYTES % 6.6 % (4.4-11.3); NEUTROPHILS # (AUTO) 19.1 (2.1-6.9); NEUTROPHILS % 87.8 % (38.7-80.0); PLATELET COUNT 491 x10e3/uL (140-360); RED BLOOD COUNT 4.69 x10e6/uL (4.3-5.7); RED CELL DISTRIBUTION WIDTH 16.4 % (11.7-14.4)
[2020-04-26 06:37] LABS: ALBUMIN 2.5 g/dL (3.5-5.0); ALBUMIN/GLOBULIN RATIO 0.5 (0.8-2.0); ANION GAP 18.3 mmol/L (8-16); CALCIUM 9.7 mg/dL (8.4-10.2); CREATININE, SERUM 1.3 mg/dL (0.72-1.25); POTASSIUM 4.3 mmol/L (3.5-5.1)
[2020-04-26] MEDS: CEFEPIME 2 GM/NS 0.9% 100 ML 100 ML IV SCH ×3 (06:40→22:08)
[2020-04-26 07:12] LABS: CREATINE KINASE MB 0.3 ng/mL (0-5.0)
[2020-04-26] MEDS: INSULIN REGULAR, HUMAN 100 UNIT/1 ML 3ML VIAL SQ SCH ×4 (07:30→22:42)
[2020-04-26 07:39] LABS: CHOL/HDL RATIO 4.7 (3.9-4.7); PHOSPHORUS 3.2 MG/DL (2.3-4.7)
--- NOTE | 2020-04-26 07:40 | NUR ---
PATIENT IS AWAKE, ALERT AND IN STABLE CONDITION WITH NO S/S OF RESPIRATORY DISTRESS- PATIENT DENIES PAIN. TELEMETRY APPLIED. O2 APPLIED AT 1.5 L NC. IV FLUIDS INFUSING.. CALL LIGHT IS WITHIN REACH- PATIENT INSTRUCTED TO CALL FOR ASSISTANCE NEEDED.
--- NOTE | 2020-04-26 07:55 | NUR ---
Dr. Callahan called and message left for him concerning consult.
--- NOTE | 2020-04-26 07:58 | NUR ---
Dr. Taylor made aware of consult.
[2020-04-26 07:59] LABS: THYROID STIMULATING HORMONE 6.377 uIU/mL (0.350-4.940)
[2020-04-26] MEDS: SODIUM CHLORIDE 0.9% 1000ML 1,000 ML IV SCH ×2 (08:00→19:36)
[2020-04-26] MEDS: DOCUSATE SODIUM 100 MG CAP PO SCH ×2 (08:39→16:01)
[2020-04-26] MEDS: FAMOTIDINE 20 MG/2 ML VIAL IV SCH ×2 (08:39→16:01)
[2020-04-26] MEDS: TAMSULOSIN HCL 0.4 MG CAP PO SCH (08:39)
[2020-04-26] MEDS: METFORMIN HCL 500 MG TAB PO SCH ×2 (08:39→16:01)
[2020-04-26] MEDS: GUAIFENESIN 600MG/DEXTROMETHORPHAN 30MG TABSR PO SCH ×2 (08:40→16:01)
[2020-04-26] MEDS: SOLIFENACIN SUCCINATE 5 MG TAB PO SCH (08:40)
[2020-04-26] MEDS: FENOFIBRATE 145 MG TAB PO SCH (08:40)
[2020-04-26] MEDS ORDERED: GLIMEPIRIDE 2 MG PO SCH (09:00)
[2020-04-26] MEDS ORDERED: AVODART PO SCH (09:00)
--- NOTE | 2020-04-26 11:59 | Consultation ---
DATE OF CONSULTATION: 04/26/2020 Urology Consultation Consultation was called by Emergency Room. CHIEF COMPLAINT/REASON FOR CONSULTATION: Urinary tract infection. HISTORY OF PRESENT ILLNESS: Mr. Sharma is a 74-year-old male patient of mine, admitted to the hospital with dysuria and a fever of 102.9. Denied gross hematuria, denied any flank pain. PAST MEDICAL HISTORY: Significant for hypertension, diabetes, hyperlipidemia, urinary tract infections, BPH, neuropathy, hypothyroidism, coronary artery disease, status post previous cath in 2014, status post left inguinal hernia repair in 2011, status post thyroidectomy, status post left rotator cuff repair in 2011, status post right rotator cuff repair. MEDICATIONS: Please see MAR. ALLERGIES: PENICILLIN, LEVOFLOXACIN, AND IVP DYE. SOCIAL HISTORY: Denies smoking or drinking. Quit smoking in his 40s, had a [id number] smoking history. Positive social alcohol. FAMILY HISTORY: BPH. Denied urologic stones or malignancies. REVIEW OF SYSTEMS: Noncontributory other than problems mentioned above for 12-organ systems other than fevers. PHYSICAL EXAMINATION: GENERAL: Elderly male, in no distress currently. TEMPERATURE: 102, pulse 94, respirations 20, and blood pressure 125/71. HEENT: Sclerae anicteric. NECK: Supple. BACK: Without costovertebral laterally. ABDOMEN: Soft, it is nontender, it is nondistended. No palpable mass. No palpable hernias. No palpable adenopathy. : Normal external genitalia. EXTREMITIES: No edema. NEURO: Moves all extremities. PSYCH: Alert and mood appropriate. SKIN: Intact. Normal color. PERTINENT LABORATORY DATA: CT scan on April 16 revealed a left renal cyst, BPH, fatty liver. Urinalysis 21 to whites, 5 reds. Sodium 129, potassium 4.3, chloride 97, bicarb 18, BUN 20, creatinine 1.3, glucose 186. Hemoglobin 12, hematocrit 35, platelet count 491,000, and white blood cell count 21,800. IMPRESSION: 1. Urinary tract infection. 2. Microscopic hematuria. 3. Benign prostatic hypertrophy. 4. Renal cyst. 5. Clinical signs of sepsis. PLAN: The patient has been begun on empiric antibiotics. We will adjust culture specific antibiotics as data is available, surveillance for the cyst. The patient is voiding well. Thank you for allowing us to participate in the care of the patient. We will be happy to follow along with you. MD YANELI Dior/MODL /[id number] cc: MD Girish Sánchez [facility] Emergency Room Fran Curry MD
[2020-04-26] MEDS ORDERED: GLIMEPIRIDE 2 MG TAB PO SCH (12:00)
[2020-04-26] MEDS: DUTASTERIDE 0.5 MG CAP PO SCH (13:09)
--- NOTE | 2020-04-26 14:15 | Consultation ---
DATE OF CONSULTATION: CHIEF COMPLAINT: Fevers and painful urination. HISTORY OF PRESENT ILLNESS: The patient is a 74-year-old man. He has fever for several days to week along with dysuria. He notes some congestion and some cough. He came to the emergency department and was found to have E. coli urinary tract infection with secondary sepsis. PAST SURGICAL HISTORY: 1. Right rotator cuff repair. 2. Left shoulder surgery. 3. Thyroidectomy. 4. Left heart catheterization, which showed some minimal coronary artery disease 5 years ago. PAST MEDICAL HISTORY: 1. Hypertension. 2. Diabetes. 3. Benign prostatic hypertrophy. FAMILY HISTORY: History of CVA and BPH. SOCIAL HISTORY: The patient quit smoking 30 years ago. He rarely drinks alcohol. ALLERGIES: THE PATIENT REPORTS AN ALLERGY TO PENICILLIN AND CONTRAST DYE. REVIEW OF SYSTEMS: He has fevers at home. There is no headache. He has no neck pain. He has no chest pain. He does not complain of any abdominal pain, nausea, or vomiting. He has some congestion and some cough. He has no leg edema. He does have some dysuria. PHYSICAL EXAMINATION: VITAL SIGNS: The blood pressure is 127/66 and saturation is 95% on room air. HEENT: Shows no facial swelling or erythema. LYMPHATIC: Normal. CARDIAC: Reveals regular rate and rhythm with normal S1 and S2. LUNGS: Auscultation of lungs reveals rhonchorous breath sounds bilaterally. There is no wheezing. ABDOMEN: Soft and nontender. There is no rebound or guarding. EXTREMITIES: Show no leg edema or calf tenderness. There is no cyanosis or clubbing. SKIN: Shows no rashes. LABORATORY DATA: White blood cell count is 21.8 and the hemoglobin is 12.2. The platelet count is 491. The BUN to creatinine ratio is 20 to 1.3. Sodium is 129 and carbon dioxide is 18. Albumin is 2.5. RADIOGRAPHIC DATA: Chest x-ray shows bilateral infiltrates, more on the right. IMPRESSION: 1. Urinary tract infection with gram-negative rods and sepsis, present on admission. 2. Community-acquired pneumonia. 3. Benign prostatic hypertrophy. 4. Acute kidney injury. 5. Hypertension. 6. Diabetes. PLAN: 1. Continue cefepime along with azithromycin to cover both for urinary tract infection and community-acquired pneumonia. 2. Urology consultation with treatment for BPH. 3. The patient has received IV fluids in accordance with sepsis protocol. 4. Continue to monitor and control blood sugars. 5. CT of chest without contrast. MD FRANCISCA Sánchez/MODGillian /[id number]
[2020-04-26 14:25] LABS: CREATINE KINASE 38 IU/L (30-200)
[2020-04-26] MEDS: GLIMEPIRIDE 2 MG TAB PO SCH (16:01)
--- NOTE | 2020-04-26 19:05 | Diagnostic Imaging Report ---
EXAM: CT Chest WITHOUT contrast INDICATION: Evaluate for pneumonia COMPARISON: Chest x-ray on 04/25/2020. TECHNIQUE: Chest was scanned utilizing a multidetector helical scanner from the lung apex through the level of the adrenal glands without administration of IV contrast. Absence of intravenous contrast decreases sensitivity for detection of lymphadenopathy and vascular pathology. Coronal and sagittal reformations were obtained. Routine protocol was performed. IV CONTRAST: None COMPLICATIONS: None RADIATION DOSE: Total DLP: 465 mGy*cm Estimated effective dose: (DLP x 0.014 x size factor) mSv CTDIvol has been reviewed. It is below the limits set by the Radiation Protocol Committee (RPC). Dose modulation, iterative reconstruction, and/or weight based adjustment of the mA/kV was utilized to reduce the radiation dose to as low as reasonably achievable. FINDINGS: LINES/ TUBES: None. LUNGS, AIRWAYS and PLEURA: Evaluation of the lungs is severely limited by respiratory motion artifact, however, within the confines of this limitations there are no focal consolidation, pleural effusion or pneumothorax. There is bibasilar atelectasis. No suspicious large mass identified. The central airways are patent and the trachea is midline. HEART AND MEDIASTINUM: The thyroid gland is normal. . No mediastinal, hilar or axillary lymphadenopathy. The heart is normal in size with atherosclerotic calcification of the coronary vessels.. There is no pericardial effusion. UPPER ABDOMEN: Unremarkable. BONES: There are degenerative changes in the thoracic spine. Suture anchor in the right humeral head. SOFT TISSUES: Unremarkable. IMPRESSION: Evaluation of the lungs is severely limited by respiratory motion artifact. However, within the confines of this limitations there are no focal consolidation, pleural effusion or pneumothorax. Signed by: Corinna Robertson MD on 04/26/2020 7:02 PM
--- NOTE | 2020-04-26 19:29 | NUR ---
PATIENT IS IN STABLE CONDITION WITH NO S/S OF RESPIRATORY DISTRESS. NO PAIN VOICED. IV FLUIDS INFUSING. TELEMETRY APPLIED. URINALS PROVIDED TO PATIENT.. CALL LIGHT IS WITHIN REACH, PATIENT INSTRUCTED TO CALL FOR ASSISTANCE NEEDED. REPORT GIVEN TO ONCOMING NURSE.
--- NOTE | 2020-04-26 19:31 | NUR ---
Patient received lying in bed. AAO x 3. Patient had no complaints of pain. Respirations even and non-labored. Safety measures in place. Patient instructed to call for assistance when needed. Call light within reach.
[2020-04-26] MEDS: AZITHROMYCIN 500MG/SOD CHL 0.9% 250ML BAG IV SCH (22:38)
[2020-04-27] VITALS (8 sets, daily range): BP systolic 112–143; BP diastolic 65–72
[2020-04-27] MEDS: SODIUM CHLORIDE 0.9% 1000ML 1,000 ML IV SCH ×2 (05:38→16:36)
[2020-04-27] MEDS: CEFEPIME 2 GM/NS 0.9% 100 ML 100 ML IV SCH ×3 (05:53→21:58)
[2020-04-27 06:05] LABS: BASOPHILS % 0.2 % (0.0-1.0); EOSINOPHILS # (AUTO) 0.1 (0.0-0.4); EOSINOPHILS % 0.4 % (0.0-6.0); HEMOGLOBIN 10.7 g/dL (14.0-18.0); LYMPHOCYTES # (AUTO) 1.4 (1.0-3.2); LYMPHOCYTES % 7.7 % (18.0-39.1); MEAN CORPUSCULAR HEMOGLOBIN 25.7 pg (28-32); MEAN CORPUSCULAR HGB CONC 33.4 g/dL (31-35); MEAN CORPUSCULAR VOLUME 76.7 fL (81-99); MONOCYTES # (AUTO) 1.2 (0.2-0.8); MONOCYTES % 6.8 % (4.4-11.3); NEUTROPHILS # (AUTO) 14.9 (2.1-6.9); NEUTROPHILS % 81.8 % (38.7-80.0); PLATELET COUNT 458 x10e3/uL (140-360); RED BLOOD COUNT 4.17 x10e6/uL (4.3-5.7); RED CELL DISTRIBUTION WIDTH 14.9 % (11.7-14.4)
[2020-04-27 06:34] LABS: ALANINE AMINOTRANSFERASE 56 IU/L (0-55); ALBUMIN 2.1 g/dL (3.5-5.0); ALBUMIN/GLOBULIN RATIO 0.5 (0.8-2.0); ALKALINE PHOSPHATASE 85 IU/L (40-150); BLOOD UREA NITROGEN 17 mg/dL (7-26); BUN/CREATININE RATIO 15 (6-25); CALCIUM 9.1 mg/dL (8.4-10.2); CARBON DIOXIDE 19 mmol/L (22-29); CHLORIDE 101 mmol/L (98-107); CREATININE, SERUM 1.14 mg/dL (0.72-1.25); EST GLOMERULAR FILTRATION RATE > 60 ML/MIN (60-); GLUCOSE 98 mg/dL (74-118); SODIUM 131 mmol/L (136-145)
[2020-04-27] MEDS: LEVOTHYROXINE SODIUM 125 MCG TAB PO SCH (06:38)
--- NOTE | 2020-04-27 06:41 | NUR ---
RECEIVED BEDSIDE SHIFT REPORT FROM OFF GOING NURSE. PATIENT IS RESTING IN BED, DENIES PAIN OR DISCOMFORT. NO ACUTE DISTRESS NOTED. CALL LIGHT WITHIN REACH. BED IN THE LOWEST POSITION.
[2020-04-27] MEDS: ALBUTEROL/IPRATROPIUM 3 ML NEB NEB SCH ×4 (06:45→20:15)
[2020-04-27] MEDS: INSULIN REGULAR, HUMAN 100 UNIT/1 ML 3ML VIAL SQ SCH ×4 (07:30→21:00)
[2020-04-27] MEDS: GLIMEPIRIDE 2 MG TAB PO SCH ×2 (08:30→16:36)
[2020-04-27] MEDS: DOCUSATE SODIUM 100 MG CAP PO SCH ×2 (08:53→16:36)
[2020-04-27] MEDS: DUTASTERIDE 0.5 MG CAP PO SCH (08:53)
[2020-04-27] MEDS: TAMSULOSIN HCL 0.4 MG CAP PO SCH (08:53)
[2020-04-27] MEDS: FAMOTIDINE 20 MG/2 ML VIAL IV SCH ×2 (08:53→16:36)
[2020-04-27] MEDS: SOLIFENACIN SUCCINATE 5 MG TAB PO SCH (08:54)
[2020-04-27] MEDS: GUAIFENESIN 600MG/DEXTROMETHORPHAN 30MG TABSR PO SCH ×2 (08:54→16:36)
[2020-04-27] MEDS: FENOFIBRATE 145 MG TAB PO SCH (08:54)
[2020-04-27] MEDS: METFORMIN HCL 500 MG TAB PO SCH ×2 (08:54→16:36)
--- NOTE | 2020-04-27 13:13 | Progress Note ---
DATE: SUBJECTIVE: The patient's CT scan shows no infiltrates. Overall, he feels improved. His urine is growing out E coli. PHYSICAL EXAMINATION: VITAL SIGNS: The patient is afebrile. The blood pressure is 120/60 and the pulse is 67. HEENT: Shows no facial swelling or erythema. LYMPHATIC: Shows no submandibular, cervical, or supraclavicular adenopathy. CARDIAC: Reveals regular rate and rhythm with normal S1, S2. LUNGS: Auscultation of lungs reveals rhonchorous breath sounds bilaterally. There is no wheezing. ABDOMEN: Soft, nontender. There is no rebound or guarding. EXTREMITIES: Shows no leg edema or calf tenderness. There is no cyanosis or clubbing. SKIN: Shows no rashes. NEUROLOGIC: Shows no focal abnormalities. LABORATORY DATA: White blood cell count is 18.1, hemoglobin is 10.7, and the platelet count is 458. BUN to creatinine ratio is 17 to 1.14. Electrolytes are within normal limits. IMPRESSION: 1. Escherichia coli urinary tract infection with sepsis, present on admission. 2. Benign prostatic hypertrophy. 3. Acute kidney injury. 4. Diabetes. 5. Hypertension. PLAN: 1. Continue cefepime. We will switch to p.o. antibiotics and complete the full course once the patient's leukocytosis has resolved and his renal function returns normal. 2. Continue to monitor renal function. 3. Continue to monitor and control blood sugars. MD FRANCISCA Sánchez/ANNALISA /[id number]
--- NOTE | 2020-04-27 16:22 | NUR ---
pt refusing to get oob due to feeling nauseated but says he walks and goes to the on his own, f/u on wednesday Addendum: 04/27/20 at 1623 by Dorian Lai PTA Amended: Links added.
--- NOTE | 2020-04-27 19:19 | NUR ---
BEDSIDE SHIFT REPORT GIVEN TO ONCOMING NURSE. PATIENT IS IN STABLE CONDITION. DENIES PAIN OR DISCOMFORT AT THIS TIME. CALL LIGHT WITHIN REACH. BED IN THE LOWEST POSITION.
--- NOTE | 2020-04-27 19:28 | NUR ---
Patient received lying in bed. AAO x 3. No complaints of pain. No signs of respiratory distress. Fall precautions implemented. Patient instructed to call for assistance when needed. Call light within reach.
--- NOTE | 2020-04-27 22:12 | NUR ---
Date of Service: 04/27/2020 PRIMARY CARE PHYSICIAN: Dr. Girish Márquez. ATTENDING PHYSICIAN: Dr. Fran Curry CONSULTING PHYSICIANS: 1. Dr. Eamon Taylor with Urology. 2. Dr. Avinash Callahan with Pulmonology. CHIEF COMPLAINT: Painful urination. HISTORY OF PRESENT ILLNESS: The patient is a 74-year-old male with a 3 to 4 week history of dysuria and frequency, presenting to the emergency department with a temperature of 102.9, who was seen in the Emergency Department at [facility] on 04/16/2020, with the same signs and symptoms. He denies being seen at any or Urgent Care center by his PCP since that previous admission. He denies use of antibiotics at home since his discharge. Denies any sick contacts. Denies being around anyone with Coronavirus that he is aware. REVIEW OF SYSTEMS: Denies chills. Reports less frequency and dysuria, able to urinate normally now. Diarrhea for two weeks; BM x 3 today. PHYSICAL EXAMINATION: VITAL SIGNS: Temperature 97.3, T-max 102.0, pulse 82, 115/67, respirations 20, and SpO2 98% on room air. Height 5 feet 5 inches. Weight 175 pounds. BMI 29.11. GENERAL: Supine, in no acute distress with rohan. LUNGS: Bibasilar lung sounds diminished. No elevated work of breathing. Respirations unlabored. No supplemental oxygen. HEENT: EOMI. Neck is supple. No thyromegaly, lymphadenopathy, or JVD noted. CARDIOVASCULAR: Regular rate and rhythm without murmur. Normal saline IV fluids via peripheral IV. ABDOMEN: Bowel sounds positive. Soft, nontender. No guarding. EXTREMITIES: No pitting edema. No clubbing, cyanosis, or signs of DVT. NEUROLOGICAL: GCS is 15. Nonfocal. DIAGNOSTIC STUDIES LABORATORY DATA: Reviewed. WBC 18.1 (21.81, 19.14), hemoglobin 10.7 (13), hematocrit 35, platelets 458 (518), neutrophils 81.8%. Sodium 131 (129, 123), potassium 4 (4.3, 5), chloride 101 (97, 92), serum CO2 of 19 (18, 17), BUN 17, creatinine 1.14 (1.30, 1.45), estimated GFR >60 (54, 48), glucose 98. 8/28 lactic acid 1.2 04/26 Urinalysis: yellow urine, slightly cloudy clarity, pH 5, specific gravity 1.01, protein trace, negative for glucose, negative for ketones, trace amount of blood, negative for nitrites, moderate amount of leukocyte esterase, negative for bilirubin, urobilinogen 0.2, rbc's 0 to 5, wbc's 21 to 50, bacteria many. 04/25 Coronavirus PCR negative 04/25 Blood cultures x2 collected and are pending. 04/25 Final urine culture and sensitivity results: Organism 1 ESCHERICHIA COLI COLONY COUNT >=100,000 cfu/ml ESC COLI M.I.C. RX --------- ---- TRIMETHOPRIM/SULFAMETHOXAZOLE > R AMPICILLIN >16 R AMPICILLIN/SULBACTAM(UNASYN). >14/04 R AZTREONAM <=4 S CEFAZOLIN (ANCEF) >16 R CEFOTAXIME (CLAFORAN) <=2 S CEFTAZIDIME <=1 S CEFTRIAXONE (ROCEPHIN) <=1 S CEFEPIME (MAXIPIME) <=4 S CEFUROXIME <=4 S CIPROFLOXACIN (CIPRO) <=1 S ERTAPENEM (INVANZ) <=1 S GENTAMICIN (GARAMYCIN) <=4 S IMIPENEM (PRIMAXIN) <=1 S LEVOFLOXACIN (LEVAQUIN) <=2 S MEROPENEM (MERREM) <=1 S NITROFURANTOIN (MACRODANTIN) <=32 S TOBRAMYCIN <=4 S AMIKACIN <=16 S PIPERACILLIN/TAZOBACT (ZOSYN) >64 R S = SUSCEPTIBLE I = INTERMEDIATE R = RESISTANT IMAGING/OTHER: 04/26 CT Chest: Evaluation of the lungs is severely limited by respiratory motion artifact. However, within the confines of this limitations there are no focal consolidation, pleural effusion or pneumothorax. 04/25 Chest x-ray per radiologist impression is hazy opacification of bilateral lung bases, right more than left, which may represent aspiration and/or developing multifocal pneumonia in the proper clinical setting. A 12-lead ECG was not completed. ASSESSMENT AND PLAN: 1. Severe sepsis, POA, (with acute kidney injury) due to UTI: -WBC improving. T-max 102.0. -Known PCN allergy. Continue IV antibiotic Cefepime. -Monitor WBCs. Monitor for subjective improvement. 2. Acute UTI with MDR E Coli, POA, with urinary retention & BPH: -Urology following. -Continue IV cefepime & NS IV fluids. 3. Acute Diarrhea: -Reports Diarrhea for two weeks; BM x 3 today. -Assess Cdiff toxin. Start Questran BID. 4. Possible Bilateral multifocal pneumonia: -Case discussed with Dr. Callahan. Stop IV azithromycin, continue cefepime. -Stop DuoNebs. -Pulmonology following. -Monitor CXR results. -Supplemental oxygen prn to keep oxygen saturation greater than or equal to 94%. 5. PRIMITIVO: -BUN 17, creatinine 1.14 (1.30, 1.45), estimated GFR >60 (54, 48) -Continue IV hydration. Monitor renal labs. Avoid nephrotoxic agents. 6. Acute hyponatremia and hypochloremia: -Sodium 131 (129, 123), chloride 101 Continue IV normal saline. Monitor electrolytes. 7. Metabolic acidosis. -Serum bicarbonate 19 (18, 17). -Monitor for improvement with IV antibiotics and IV fluids. -Consider addition of sodium bicarbonate in IV fluids if no improvement. 8. Hypotension due to number #1, improving, +hx of HTN: -blood pressure today 115/67 -Monitor for improvement with IV fluids and IV antibiotics. -Consider use of vasoactive drip such as Levophed if improvement is unsatisfactory. 9. Controlled type 2 diabetes mellitus with hyperglycemia and diabetic neuropathy: -Serum glucose 98. -Monitor FSBG ac hs. -Resume any oral diabetic medications from home once medications -Continue ADA diet. -Hemoglobin A1c 7.3% -Regular SSI 10. Hypothyroidism: -TSH 6.377; on 04/27 Levothyroxine dose increased from 125 to 137mcg daily Prophylaxis. Pepcid and SCDs. Inpatient, billing code [id number], time spent 35 minutes.
[2020-04-28] VITALS (7 sets, daily range): BP systolic 120–146; BP diastolic 56–80
[2020-04-28] MEDS: SODIUM CHLORIDE 0.9% 1000ML 1,000 ML IV SCH ×2 (02:20→16:49)
[2020-04-28] MEDS: CEFEPIME 2 GM/NS 0.9% 100 ML 100 ML IV SCH ×3 (06:00→22:00)
[2020-04-28] MEDS: LEVOTHYROXINE SODIUM 112 MCG TAB PO SCH (06:00)
[2020-04-28] MEDS: LEVOTHYROXINE SODIUM 25 MCG TABLET PO SCH (06:00)
[2020-04-28] MEDS ORDERED: LEVOTHYROXINE SODIUM 125 MCG TAB PO SCH (07:00)
--- NOTE | 2020-04-28 07:00 | NUR ---
Walking rounds done. Bedside report given to oncoming nurse.
[2020-04-28] MEDS: INSULIN REGULAR, HUMAN 100 UNIT/1 ML 3ML VIAL SQ SCH ×4 (07:30→21:00)
[2020-04-28] MEDS: FAMOTIDINE 20 MG/2 ML VIAL IV SCH ×2 (08:47→16:50)
[2020-04-28] MEDS: GUAIFENESIN 600MG/DEXTROMETHORPHAN 30MG TABSR PO SCH ×2 (08:47→16:50)
[2020-04-28] MEDS: METFORMIN HCL 500 MG TAB PO SCH ×2 (08:47→16:50)
[2020-04-28] MEDS: DUTASTERIDE 0.5 MG CAP PO SCH (08:47)
[2020-04-28] MEDS: FENOFIBRATE 145 MG TAB PO SCH (08:47)
[2020-04-28] MEDS: CHOLESTYRAMINE 4 GM PACKET PO SCH ×2 (08:47→16:50)
[2020-04-28] MEDS: GLIMEPIRIDE 2 MG TAB PO SCH ×2 (08:47→16:49)
[2020-04-28] MEDS: SOLIFENACIN SUCCINATE 5 MG TAB PO SCH (08:47)
[2020-04-28] MEDS: DOCUSATE SODIUM 100 MG CAP PO SCH ×2 (08:47→16:49)
[2020-04-28] MEDS: TAMSULOSIN HCL 0.4 MG CAP PO SCH (08:47)
[2020-04-28 09:26] LABS: BASOPHILS % 0.4 % (0.0-1.0); EOSINOPHILS # (AUTO) 0.1 (0.0-0.4); EOSINOPHILS % 1.4 % (0.0-6.0); HEMATOCRIT 32.7 % (38.2-49.6); HEMOGLOBIN 10.6 g/dL (14.0-18.0); LYMPHOCYTES % 9.5 % (18.0-39.1); MEAN CORPUSCULAR HEMOGLOBIN 24.4 pg (28-32); MEAN CORPUSCULAR HGB CONC 32.4 g/dL (31-35); MEAN CORPUSCULAR VOLUME 75.3 fL (81-99); MONOCYTES # (AUTO) 0.7 (0.2-0.8); MONOCYTES % 7.1 % (4.4-11.3); NEUTROPHILS # (AUTO) 8.1 (2.1-6.9); NEUTROPHILS % 79.5 % (38.7-80.0); PLATELET COUNT 524 x10e3/uL (140-360); RED BLOOD COUNT 4.34 x10e6/uL (4.3-5.7); RED CELL DISTRIBUTION WIDTH 14.9 % (11.7-14.4)
[2020-04-28 10:08] LABS: ALANINE AMINOTRANSFERASE 56 IU/L (0-55); ALBUMIN 2.1 g/dL (3.5-5.0); ALBUMIN/GLOBULIN RATIO 0.5 (0.8-2.0); ALKALINE PHOSPHATASE 67 IU/L (40-150); ANION GAP 15.1 mmol/L (8-16); BLOOD UREA NITROGEN 14 mg/dL (7-26); BUN/CREATININE RATIO 13 (6-25); CALCIUM 8.8 mg/dL (8.4-10.2); CARBON DIOXIDE 22 mmol/L (22-29); CHLORIDE 99 mmol/L (98-107); CREATININE, SERUM 1.08 mg/dL (0.72-1.25); EST GLOMERULAR FILTRATION RATE > 60 ML/MIN (60-); GLUCOSE 207 mg/dL (74-118); POTASSIUM 4.1 mmol/L (3.5-5.1); SODIUM 132 mmol/L (136-145)
--- NOTE | 2020-04-28 10:23 | NUR ---
Discussed pt with Sanekt Olson NP. He stated pt is doing better today. Will monitor, and plans discharge Wednesday.
--- NOTE | 2020-04-28 12:27 | Progress Note ---
DATE: SUBJECTIVE: The patient is currently feeling better. He is afebrile. He is not complaining of dyspnea or cough. PHYSICAL EXAMINATION: VITAL SIGNS: Blood pressure is 137/71, saturation is 100% and the pulse is 55-65. HEENT: No facial swelling or erythema. LYMPHATIC: No submandibular, cervical, or supraclavicular adenopathy. CARDIAC: Regular rate and rhythm with normal S1, S2. LUNGS: Auscultation of lungs reveals rhonchorous breath sounds bilaterally. There is no wheezing. ABDOMEN: Soft, nontender. There is no rebound or guarding. EXTREMITIES: No leg edema or calf tenderness. There is no cyanosis or clubbing. SKIN: No rashes. NEUROLOGICAL: No focal abnormalities. LABORATORY DATA: White blood cell count is 10.1, hemoglobin is 10.6, and the platelet count is 524. The BUN to creatinine ratio is 14 to 1.08. The other electrolytes within normal limits. Albumin is 2.1. IMPRESSION: 1. Escherichia coli urinary tract infection with sepsis, present on admission. 2. Benign prostatic hypertrophy. 3. Acute kidney injury. 4. Diabetes. PLAN: 1. Continue cefepime. Continue IV antibiotics for now. 2. Hopefully, the patient can be switched to p.o. antibiotics and complete his course of antibiotics orally as an outpatient. We will discuss with Urology. 3. Continue treatment for benign prostatic hypertrophy. 4. Continue to monitor and control blood sugars. 5. No further interventions are required for a pulmonary perspective at this time. MD FRANCISCA Sánchez/ANNALISA /[id number]
[2020-04-28] MEDS ORDERED: ONDANSETRON HCL 4 MG ORAL DISINTEGRATING TAB PO PRN (15:15)
--- NOTE | 2020-04-28 18:50 | NUR ---
Report given to oncoming nurse of patients status. Resting in bed. AAOX3 to time, person, place. Respirations even and unlabored. Side rails upx2, call light within reach.
--- NOTE | 2020-04-28 19:30 | NUR ---
Patient received lying in bed. AAO x 3. No acute distress noted. Bed locked and in lowest position. Bed rails up x 2. Safety measures in place. Patient instructed to call for assistance when needed. Call light within reach.
[2020-04-28] MEDS ORDERED: ACETAMINOPHEN/CODEINE 300MG - 30MG TAB PO PRN (20:30)
--- NOTE | 2020-04-28 20:35 | NUR ---
Date of Service: 04/28/2020 PRIMARY CARE PHYSICIAN: Dr. Girish Márquez. ATTENDING PHYSICIAN: Dr. Fran Curry CONSULTING PHYSICIANS: 1. Dr. Eamon Taylor with Urology. 2. Dr. Avinash Callahan with Pulmonology. CHIEF COMPLAINT: Painful urination. HISTORY OF PRESENT ILLNESS: The patient is a 74-year-old male with a 3 to 4 week history of dysuria and frequency, presenting to the emergency department with a temperature of 102.9, who was seen in the Emergency Department at [facility] on 04/16/2020, with the same signs and symptoms. He denies being seen at any or Urgent Care center by his PCP since that previous admission. He denies use of antibiotics at home since his discharge. Denies any sick contacts. Denies being around anyone with Coronavirus that he is aware. REVIEW OF SYSTEMS: Feeling much, much better. Denies chills. Reports less frequency and dysuria, able to urinate normally now. Diarrhea for two weeks. PHYSICAL EXAMINATION: VITAL SIGNS: Temperature 98.6, T-max 100.1, pulse 58, 146/80, respirations 18, and SpO2 99% on room air. Height 5 feet 5 inches. Weight 175 pounds. BMI 29.11. GENERAL: Supine, in no acute distress with rohan. LUNGS: Bibasilar lung sounds diminished. No elevated work of breathing. Respirations unlabored. No supplemental oxygen. HEENT: EOMI. Neck is supple. No thyromegaly, lymphadenopathy, or JVD noted. CARDIOVASCULAR: Regular rate and rhythm without murmur. Normal saline IV fluids via peripheral IV. ABDOMEN: Bowel sounds positive. Soft, nontender. No guarding. EXTREMITIES: No pitting edema. No clubbing, cyanosis, or signs of DVT. NEUROLOGICAL: GCS is 15. Nonfocal. DIAGNOSTIC STUDIES LABORATORY DATA: Reviewed. WBC 10.15 (18.1, 21.81, 19.14), H/H stable, platelets 524 (458, 518). Sodium 132 (131, 129, 123), potassium 4.1 (4, 4.3, 5), chloride 99 (101, 97, 92), Serum CO2 22 (19, 18, 17), BUN 14, creatinine 1.08 (1.14, 1.30, 1.45), estimated GFR >60, glucose 207. 8/28 lactic acid 1.2 04/26 Urinalysis: yellow urine, slightly cloudy clarity, pH 5, specific gravity 1.01, protein trace, negative for glucose, negative for ketones, trace amount of blood, negative for nitrites, moderate amount of leukocyte esterase, negative for bilirubin, urobilinogen 0.2, rbc's 0 to 5, wbc's 21 to 50, bacteria many. 04/25 Coronavirus PCR negative 04/25 Blood cultures x2 collected and are pending. 04/25 Final urine culture and sensitivity results: Organism 1 ESCHERICHIA COLI COLONY COUNT >=100,000 cfu/ml ESC COLI M.I.C. RX --------- ---- TRIMETHOPRIM/SULFAMETHOXAZOLE > R AMPICILLIN >16 R AMPICILLIN/SULBACTAM(UNASYN). >14/04 R AZTREONAM <=4 S CEFAZOLIN (ANCEF) >16 R CEFOTAXIME (CLAFORAN) <=2 S CEFTAZIDIME <=1 S CEFTRIAXONE (ROCEPHIN) <=1 S CEFEPIME (MAXIPIME) <=4 S CEFUROXIME <=4 S CIPROFLOXACIN (CIPRO) <=1 S ERTAPENEM (INVANZ) <=1 S GENTAMICIN (GARAMYCIN) <=4 S IMIPENEM (PRIMAXIN) <=1 S LEVOFLOXACIN (LEVAQUIN) <=2 S MEROPENEM (MERREM) <=1 S NITROFURANTOIN (MACRODANTIN) <=32 S TOBRAMYCIN <=4 S AMIKACIN <=16 S PIPERACILLIN/TAZOBACT (ZOSYN) >64 R S = SUSCEPTIBLE I = INTERMEDIATE R = RESISTANT IMAGING/OTHER: 04/26 CT Chest: Evaluation of the lungs is severely limited by respiratory motion artifact. However, within the confines of this limitations there are no focal consolidation, pleural effusion or pneumothorax. 04/25 Chest x-ray per radiologist impression is hazy opacification of bilateral lung bases, right more than left, which may represent aspiration and/or developing multifocal pneumonia in the proper clinical setting. A 12-lead ECG was not completed. ASSESSMENT AND PLAN: 1. Severe sepsis, POA, (with acute kidney injury) due to UTI: -WBC improving. T-max 100.1. -Known PCN allergy. Continue IV antibiotic Cefepime. -Monitor WBCs. Subjectively improved. 2. Acute UTI with MDR EColi, POA, with urinary retention & BPH: -Urology following. -Continue IV cefepime & NS IV fluids. 3. Acute Diarrhea: -Reports Diarrhea for two weeks; BM x 3 today. -Assess Cdiff toxin. Start Questran BID. 4. Possible Bilateral multifocal pneumonia: -Case discussed with Dr. Callahan. Stop IV azithromycin, continue cefepime. -Stop DuoNebs. -Pulmonology following. -Monitor CXR results. -Supplemental oxygen prn to keep oxygen saturation greater than or equal to 94%. 5. PRIMITIVO: -BUN 17, creatinine 1.08 (1.14, 1.30, 1.45), estimated GFR >60 -Continue IV hydration. Monitor renal labs. Avoid nephrotoxic agents. 6. Acute hyponatremia and hypochloremia: -Sodium 132 (131, 129, 123), chloride 99 Continue IV normal saline. Monitor electrolytes. 7. Metabolic acidosis. -Serum bicarbonate 22 (19, 18, 17). -Monitor for improvement with IV antibiotics and IV fluids. -Consider addition of sodium bicarbonate in IV fluids if no improvement. 8. Hypotension due to number #1, improving, +hx of HTN: -blood pressure today 146/80 -Monitor for improvement with IV fluids and IV antibiotics. -Consider use of vasoactive drip such as Levophed if improvement is unsatisfactory. 9. Controlled type 2 diabetes mellitus with hyperglycemia and diabetic neuropathy: -Serum glucose 207. -Monitor FSBG ac hs. -Resume any oral diabetic medications from home once medications -Continue ADA diet. -Hemoglobin A1c 7.3% -Regular SSI 10. Hypothyroidism: -TSH 6.377; on 04/27 Levothyroxine dose increased from 125 to 137mcg daily Prophylaxis. Pepcid and SCDs. Inpatient, billing code [id number], time spent 35 minutes.
[2020-04-29] VITALS: BP 129/68
[2020-04-29 04:00] VITALS: BP 133/68
[2020-04-29] MEDS: LEVOTHYROXINE SODIUM 112 MCG TAB PO SCH (05:36)
[2020-04-29] MEDS: CEFEPIME 2 GM/NS 0.9% 100 ML 100 ML IV SCH (05:36)
[2020-04-29] MEDS: LEVOTHYROXINE SODIUM 25 MCG TABLET PO SCH (05:36)
[2020-04-29 07:01] LABS: BASOPHILS % 0.4 % (0.0-1.0); EOSINOPHILS # (AUTO) 0.1 (0.0-0.4); EOSINOPHILS % 1.8 % (0.0-6.0); HEMOGLOBIN 11.6 g/dL (14.0-18.0); LYMPHOCYTES # (AUTO) 1.2 (1.0-3.2); LYMPHOCYTES % 16.5 % (18.0-39.1); MEAN CORPUSCULAR HEMOGLOBIN 24.9 pg (28-32); MEAN CORPUSCULAR HGB CONC 32.2 g/dL (31-35); MEAN CORPUSCULAR VOLUME 77.4 fL (81-99); MONOCYTES # (AUTO) 0.6 (0.2-0.8); MONOCYTES % 8.2 % (4.4-11.3); NEUTROPHILS % 69.6 % (38.7-80.0); PLATELET COUNT 508 x10e3/uL (140-360); RED BLOOD COUNT 4.65 x10e6/uL (4.3-5.7); RED CELL DISTRIBUTION WIDTH 15.2 % (11.7-14.4)
[2020-04-29 07:27] LABS: BLOOD UREA NITROGEN 12 mg/dL (7-26); BUN/CREATININE RATIO 12 (6-25); CALCIUM 9.4 mg/dL (8.4-10.2); CARBON DIOXIDE 23 mmol/L (22-29); CHLORIDE 100 mmol/L (98-107); CREATININE, SERUM 1.03 mg/dL (0.72-1.25); EST GLOMERULAR FILTRATION RATE > 60 ML/MIN (60-); GLUCOSE 82 mg/dL (74-118); SODIUM 135 mmol/L (136-145)
[2020-04-29] MEDS: INSULIN REGULAR, HUMAN 100 UNIT/1 ML 3ML VIAL SQ SCH (07:30)
[2020-04-29] MEDS ORDERED: ACETAMINOPHEN325 M1 PO (07:43)
[2020-04-29] MEDS ORDERED: CEFUROXIME250 MG PO (07:49)
[2020-04-29] MEDS ORDERED: SODIUM CHLORIDE 0.9% 250ML 250 ML ONE (07:55)
[2020-04-29 08:17] VITALS: BP 160/81
[2020-04-29] MEDS: DOCUSATE SODIUM 100 MG CAP PO SCH (08:29)
[2020-04-29] MEDS: FENOFIBRATE 145 MG TAB PO SCH (08:29)
[2020-04-29] MEDS: FAMOTIDINE 20 MG/2 ML VIAL IV SCH ×2 (08:29→09:00)
[2020-04-29] MEDS: GUAIFENESIN 600MG/DEXTROMETHORPHAN 30MG TABSR PO SCH (08:29)
[2020-04-29] MEDS: GLIMEPIRIDE 2 MG TAB PO SCH (08:29)
[2020-04-29] MEDS: METFORMIN HCL 500 MG TAB PO SCH (08:29)
[2020-04-29] MEDS: TAMSULOSIN HCL 0.4 MG CAP PO SCH (08:29)
[2020-04-29] MEDS: DUTASTERIDE 0.5 MG CAP PO SCH (08:29)
[2020-04-29] MEDS: SOLIFENACIN SUCCINATE 5 MG TAB PO SCH (08:29)
[2020-04-29] MEDS: CHOLESTYRAMINE 4 GM PACKET PO SCH (08:29)
[2020-04-29 08:41] VITALS: BP 160/81
[2020-04-29] MEDS ORDERED: SODIUM CHLORIDE 0.9% 500ML 500 ML IV ONE (09:00)
--- NOTE | 2020-04-29 10:30 | NUR ---
Left AC IV discontinued. No signs of infiltration noted. 2x2 gauze and coban placed. Taken via wheelchair to personal car. AAOX4 to time, person, place, situation. Respiration even and unlabored. Denies pain. Discharge instructions rx, and all personal belongings taken with patient.
--- NOTE | 2020-04-29 12:16 | Discharge Summary ---
PRIMARY CARE PHYSICIAN: Dr. Girish Márquez. CONSULTING PHYSICIANS: 1. Dr. Eamon Tayolr with Urology. 2. Dr. Avinash Callahan with Pulmonology. CHIEF COMPLAINT: Painful urination. HISTORY OF PRESENT ILLNESS: The patient is a 74-year-old male with 3 to 4-week history of dysuria and frequency, presenting to the emergency department with a temperature of 102.9, who was seen previously in the Emergency Department at [facility] on 04/16/2020, with the same signs and symptoms. He denies being seen at any Urgent Care Center or by his PCP since the previous admission, and he denies use of antibiotics at home since his discharge. He denies any sick contacts. Denies being around anyone with a Coronavirus that he is aware of. Please see dictated history and physical, dated on 04/26/2020 for list of past medical history, past surgical history, family history, social history, allergies, home medications, as well as admitting laboratory data and imaging studies. ADMITTING DIAGNOSES: Include the followin. Severe sepsis, present on admission (with acute kidney injury) due to urinary tract infection and bilateral multifocal pneumonia. 2. Acute urinary tract infection, present on admission, with urinary retention and benign prostatic hyperplasia. 3. Bilateral multifocal pneumonia, present on admission. 4. Acute kidney injury. 5. Acute hyponatremia and hypochloremia. 6. Metabolic acidosis. 7. Hypotension due to #1, history of hypotension. 8. Uncontrolled type 2 diabetes mellitus with hyperglycemia and diabetic neuropathy. 9. Hypothyroidism. DISCHARGE DIAGNOSES: 1. Severe sepsis, present on admission, (with acute kidney injury) due to urinary tract infection, resolved. 2. Acute urinary tract infection with multidrug resistant Escherichia coli, present on admission, with urinary retention and benign prostatic hyperplasia. 3. Acute diarrhea, improving. 4. Possible bilateral multifocal pneumonia. 5. Acute kidney injury. 6. Acute hyponatremia and hypochloremia, improving. 7. Metabolic acidosis due to #1. 8. Hypotension due to #1, improving, positive history of hypertension. 9. Controlled type 2 diabetes mellitus with hyperglycemia and diabetic neuropathy. 10. Hypothyroidism. The patient's white blood cell count improved from a high of 21.81 down to 10.15 yesterday, was given an additional day in the hospital to fully improve to the white blood cell count of today 7.2. The patient was on cefepime, IV antibiotics during his stay here. Coronavirus PCR was negative on 04/25/2020. The blood cultures x2 collected on 04/25/2020, with preliminary results of no growth. After 72 hours showed preliminary results of gram-negative bacillus, identification and susceptibility to follow. The final urine culture and sensitivity results showed a colony count greater than equal to 100,000 CFU/mL, history of E coli, this is a multidrug resistant organism resistant to Bactrim, ampicillin, ampicillin/sulbactam or Unasyn, Ancef, Zosyn; sensitivity to cefepime less than equal to 4, sensitivity to cefuroxime less than equal to 4, sensitivity to levofloxacin less than equal to 2. The patient is allergic to levofloxacin and penicillin. On 04/25/2020, chest x-ray had shown; according to the interpreting radiologist, hazy opacification of bilateral lung bases, right more than left, which may represent aspiration and/or developing multifocal pneumonia in the proper clinical setting. A followup CT of the chest following day on 04/26/2020, is severely limited by respiratory motion artifact. However, within the confines of this limitation, there are no focal consolidation, pleural effusion, or pneumothorax. IV fluids, normal saline at 100 mL an hour were continued. During his stay, his creatinine improved from 1.45 to 1.3 to 1.14 to 1.08 to 1.03. Sodium remained low during his stay, but was very low on admission at 123, but then improved to 129, 131, 132, and today is 135. Serum bicarbonate improved from 17 to 18 to 19 to 22, and then today is 23. Hemoglobin A1c was 7.3%. Blood sugars were as high as 275 to 83, yesterday blood sugars 107, 215, 179, 114, and was 97 this morning. Thyroid-stimulating hormone was 6.377 on 04/27/2020. The levothyroxine dose was increased from 125 to 137 mcg daily. Subjectively, the patient is very much improved. Physical exam was within normal limits. The patient is in good spirits, ready go home. Vital signs from today, temperature 97.7, pulse is 51, blood pressure 133/68, respirations 18, and oxygen saturation 100%. Sodium 135, potassium 4, chloride 100, CO2 of 23, anion gap 16, BUN 12, creatinine 1.03, estimated GFR greater than 60, calcium 9.4. WBC 7.2, hemoglobin 11.6, hematocrit 36, platelets 508, neutrophils 69.6%. The patient will be discharged home on [employer] diet. Activity level as tolerated. Follow up with PCP, Dr. Girish Márquez in 1 to 2 weeks. Follow up with Dr. Taylor and Dr. Callahan as directed. Discharge prescriptions include p.r.n. Tylenol and cefuroxime 500 mg p.o. q.12 hours x7 days. Dictated by Sanket Olson NP Fran Curry MD HWP/MODL /[id number]
== END 2020-04-29 10:30 | disposition home or self-care (01) | DRG 871 ==
LOC: ER 19:16 → ERHOLD 21:50 → MED/SURG2 23:08
PROVIDERS: ADMIT Internal Medicine; ATTEND Internal Medicine
DX: A41.51 Sepsis due to Escherichia coli [E. coli] (principal); J18.9 Pneumonia, unspecified organism; N17.9 Acute kidney failure, unspecified; E87.2 Acidosis; N39.0 Urinary tract infection, site not specified; E87.1 Hypo-osmolality and hyponatremia; Z16.24 Resistance to multiple antibiotics; R65.20 Severe sepsis without septic shock; I10 Essential (primary) hypertension; E11.42 Type 2 diabetes mellitus with diabetic polyneuropathy; E11.65 Type 2 diabetes mellitus with hyperglycemia; E89.0 Postprocedural hypothyroidism; E78.5 Hyperlipidemia, unspecified; N40.1 Benign prostatic hyperplasia with lower urinary tract symptoms; R33.8 Other retention of urine; R35.0 Frequency of micturition; Z87.440 Personal history of urinary (tract) infections; Z88.1 Allergy status to other antibiotic agents; Z88.0 Allergy status to penicillin; Z82.3 Family history of stroke; Z84.89 Family history of other specified conditions; Z98.890 Other specified postprocedural states; E87.8 Other disorders of electrolyte and fluid balance, not elsewhere classified; R31.29 Other microscopic hematuria; N28.1 Cyst of kidney, acquired; B96.20 Unspecified Escherichia coli [E. coli] as the cause of diseases classified elsewhere; R19.7 Diarrhea, unspecified; Z11.59 Encounter for screening for other viral diseases; Z79.84 Long term (current) use of oral hypoglycemic drugs
CPT/HCPCS: 36415; 71045; 71250; 80048; 80053; 80061; 81001; 82550; 82553; 82948; 83036; 83605; 83735; 84100; 84443; 84484; 85025; 85610; 85730; 87040; 87071; 87086; 87186; 87205; 94640; 97139; 99284; J0456; J1817; J7030; J7040; J7050; U0002

== ENCOUNTER 2020-05-27 14:56 | Emergency (ER) | payer MEDICARE, OTHER ==
[~2020-05-27] VITALS: Ht 165.1 cm; Wt 79.4 kg
[~2020-05-27 14:56] MED LIST changes: +ACETAMINOPHEN325 M1 PO; +CEFUROXIME250 MG PO
--- NOTE | 2020-05-27 15:20 | Emergency Department Note ---
History of Present Illnes History of Present Illness Chief Complaint: Genitourinary History of Present Illness This is a 74 year old male hx of prostatitis c/o bladder pain, diffi culty urination for several weeks. He has been hospitalized before in March for bladder infection . Historian: Patient, Family Member Arrival Mode: Car Onset (how long ago): week(s) Radiation: Reports back Severity: moderate Onset quality: gradual Duration (how long): week(s) Progression: worsening Context: Reports recent illness Relieving factors: none Exacerbating factors: none Associated symptoms: Reports diaphoresis, Reports fever/chills, Reports loss of appetite Treatments prior to arrival: none Previous service: medications given, tests performed, re-evaluation Past Medical/Family History Physician Review I have reviewed the patient's past medical and family history. Any updates have been documented here. Past Medical History Past Medical History: None, Hypertension, Diabetes, Hypothyroidism, UTI's, Hyperlipedemia Other Medical History: NEUROPATHY Past Surgical History: None Other Surgery: rotater cuff, hernia repair, thyroid removed Social History Smoking Cessation: Unknown if ever smoked Alcohol Use: Social Any Illegal Drug Use: No TB Exposure/Symptoms: No Physically hurt or threatened: No Family History Family history of heart diseas: No Other Last Tetanus: unk Any Pre-Existing Lines (PICC,: No Is patient up to date on immun: No Review of Systems Review of Systems Constitutional: Reports as per HPI, Reports chills, Reports fever EENTM: Reports no symptoms Cardiovascular: Reports no symptoms Respiratory: Reports no symptoms Gastrointestinal: Reports no symptoms Genitourinary: Reports as per HPI, Reports dysuria, Reports frequency, Reports pain Musculoskeletal: Reports no symptoms Integumentary: Reports no symptoms Neurological: Reports no symptoms Psychological: Reports no symptoms Endocrine: Reports no symptoms Hematological/Lymphatic: Reports no symptoms Physical Exam Related Data Allergies: Coded Allergies: Penicillins (Verified Allergy, Mild, 06/02/12) levofloxacin (Verified Allergy, Mild, ITCHING, 10/27/11) Uncoded Allergies: IVP DYE (Allergy, Mild, 06/02/12) Vital signs reviewed: Yes Physical Exam CONSTITUTIONAL Constitutional: Present well-developed, Present well-nourished HENT HENT: Present normocephalic, Present atraumatic, Present oropharynx clear/moist, Present nose normal HENT L/R: Present left ext ear normal, Present right ext ear normal EYES Eyes: Reports PERRL, Reports conjunctivae normal NECK Neck: Present ROM normal PULMONARY Pulmonary: Present effort normal, Present breath sounds normal CARDIOVASCULAR Cardiovascular: Present regular rhythm, Present heart sounds normal, Present capillary refill normal, Present normal rate GASTROINTESTINAL Abdominal: Present soft, Present nontender, Present bowel sounds normal GENITOURINARY Genitourinary: Present exam deferred SKIN Skin: Present warm, Present dry MUSCULOSKELETAL Musculoskeletal: Present ROM normal NEUROLOGICAL Neurological: Present alert, Present oriented x 3, Present no gross motor or sensory deficits PSYCHOLOGICAL Psychological: Present mood/affect normal, Present judgement normal Results Laboratory Lab results reviewed: Yes Laboratory comments Leukocyte esterace positive Assessment & Plan Medical Decision Making MDM prostatitis, UTI Reassessment Reassessment He received Cefepime and d/c on cefuroxime last discharge in March. Urine cultures grew the same E.coli twice, sensitive to Cefuroxime Assessment & Plan Final Impression: (1) Acute on chronic prostatitis (2) UTI (urinary tract infection) Depart Disposition: HOME, SELF-prison Meds Active Scripts Bacillus Coagulans (Bacid with Lactospore) 1 Each Capsule, 1 CAP PO BID, #30 Prov:WANDY CASEY MD 05/27/20 Ondansetron Hcl* (ZOFRAN*) 4 Mg Tablet, 4 MG SL Q6H PRN for NAUSEA, #14 MG 0 Refills Prov:WANDY CASEY MD 05/27/20 Acetaminophen/Codeine* (TYLENOL # 3*) 1 Ea Tab, 1 TAB PO Q4HR PRN for pain or cough, #30 Prov:WANDY CASEY MD 05/27/20 Cefdinir (OMNICEF) 300 Mg Capsule, 300 MG PO BID for 10 Days, CAP Prov:WANDY CASEY MD 05/27/20 Cefuroxime Axetil (CEFUROXIME) 250 Mg Tablet, 500 MG PO Q12H for 7 Days, #14 TAB 0 Refills Prov:CLEMENCIA FIGUEROA NP 04/29/20 Acetaminophen (ACETAMINOPHEN) 325 Mg Tablet, 650 MG PO Q4H PRN for Mild Pain (1- 3) or Fever>100.8 for 14 Days, #30 TAB 0 Refills Prov:CLEMENCIA FIGUEROA NP 04/29/20 Reported Medications Metformin Hcl (METFORMIN HCL) 500 Mg Tablet, 500 MG PO BID, #60 TAB 03/25/15 Tamsulosin Hcl (TAMSULOSIN HCL) 0.4 Mg Cap.er.24h, 0.4 MG PO DAILY 03/25/15 Solifenacin Succinate (VESICARE) 5 Mg Tablet, 5 MG PO DAILY, #30 TAB 03/25/15 Fenofibrate Nanocrystallized (FENOFIBRATE) 145 Mg Tablet, 145 MG PO DAILY 03/25/15 [Synthroid] No Conflict Check, 125 MCG PO DAILY 04/11/12 Lansoprazole (PREVACID SOLUTAB) 30 Mg Tabdp, 30 MG PO DAILY 04/11/12 [Avodart] No Conflict Check, 5 MG PO DAILY 04/11/12 [Amarayl] No Conflict Check, 4 MG PO BID 04/11/12 [Lisinopril] No Conflict Check, 5 MG PO DAILY 04/11/12 [Neurontin] No Conflict Check, 600 MG PO DAILY 04/11/12 Physician Attestation Provider Attestation Based on last discharge summary and urine cultures, I would d/c him on Cefdinir and f/u. case discussed with WANDY Cook MD May 27, 2020 15:20
[2020-05-27] MEDS ORDERED: CEFTRIAXONE SOD 1 GM VIAL IM ONE (15:30)
[2020-05-27] MEDS ORDERED: ONDANSETRON HCL 4 MG ORAL DISINTEGRATING TAB PO ONE (15:30)
[2020-05-27] MEDS ORDERED: HYDROCODONE/APAP 5MG-325MG TAB PO ONE ×2 (15:30→16:00)
[2020-05-27] MEDS ORDERED: TYLENOL # 31 EA PO (15:32)
[2020-05-27] MEDS ORDERED: CEFDINIR300 MG PO (15:32)
[2020-05-27] MEDS ORDERED: ZOFRAN4 MG SL (15:32)
[2020-05-27] MEDS ORDERED: BACID WITH LAC PO (15:32)
[2020-05-27] MEDS ORDERED: ONDANSETRON HCL 4 MG ORAL DISINTEGRATING TAB ONE (15:44)
[2020-05-27] MEDS ORDERED: CEFTRIAXONE SOD 1 GM VIAL ONE (15:44)
[2020-05-27] MEDS ORDERED: LIDOCAINE HCL 2% LOCAL 20 ML VIAL ONE (15:44)
[2020-05-27] MEDS ORDERED: HYDROCODONE/APAP 5MG-325MG TAB ONE (15:44)
--- OUTSIDE RECORDS SUMMARY | 2020-05-27 17:05 | XMS REPORT | Clinical Summary ---
Author Author [facility] Address Unknown Phone Unavailable Care Team Providers Care Community Development Worker Name Role Phone Girish Márquez MD PCP [phone] Allergies Comments Active Allergy Reactions Severity [...] mg 0 mg capsule by mouth daily. Active Problems Problem Noted Date Calculus of kidney 04/26/2019 Family History Medical History Relation Name Comments Diabetes Mother Relation Name Status Comments Father Mother Social History Date Tobacco Use Types Packs/Day Years Used Former Smoker Cigarettes 0.2 30 Smokeless Tobacco: Never Used Drinks/Week oz/Week Comments Alcohol Use ex social smoker Not Currently Sex Assigned at Date Recorded Not on file Last Filed Vital Signs Not on file Plan of Treatment Health Maintenance Due Date Last Done Comments COLONOSCOPY SCREENING 1997 SHINGLES VACCINES (#1) 1997 65+ PNEUMOCOCCAL VACCINE 2012 11/28/2006 (1 of 1 - PPSV23) INFLUENZA VACCINE 03/30/2020 Results Not on fileafter 05/27/2019 Insurance Type Payer Benefit Subscriber ID Effective Phone Address Plan / Dates Group PPO HUMANA MEDICARE HUMANA [id number] 2017-P MEDICARE resent PPO/PFFS/E RS [facility] Advance Directives For more information, please contact: [phone] 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
--- OUTSIDE RECORDS SUMMARY | 2020-05-27 17:05 | XMS REPORT | Clinical Summary ---
Author Author [facility] Address Unknown Phone Unavailable Care Team Providers Care Rescue Boat Operator Name Role Phone PCP Unavailable Allergies Not [...] Signs Not on file Plan of Treatment Not on file Results Not on fileafter 05/27/2019
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
--- OUTSIDE RECORDS SUMMARY | 2020-05-27 17:06 | XMS REPORT | Continuity of Care Document ---
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 Phosphatase (test code = 6768-6) 67 40-150 [facility] WW4995-90-37 18:56:00 [facility] [address] [address] Patient Name: UMER MORENO MR #: [id number] : 1945 Age/Sex: 74/M Req #: [id number] Adm Physician: ADRIANA RANDLE MD Ordered by: CYNDIE MILLS MD Report #: [id number] Location: MED/SURG2 Room/Bed: [facility] Procedure: [id number] CT/CT CHEST WO Ex am Date: 04/26/20 Exam Time: 1749 REPORT STATUS: Signed EXAM: CT Chest WITHOUT contra st INDICATION: Evaluate for pneumonia COMPARISON: Chest x-ray on 04/25/2020. TECHNIQUE: Chest was scanned utilizing a multidetector helical scanner fr om the lung apex through the level of the adrenal glands without administratio n of IV contrast. Absence of intravenous contrast decreases sensitivity for de tection of lymphadenopathy and vascular pathology. Coronal and sagittal reform ations were obtained. Routine protocol was performed. IV CONTRAST: None COMPLICATIONS: None RADIATION DOSE: Total DLP: 465 mGy*cm Estimated effective dose: (DLP x 0.014 x size factor) mSv CTDIvol has been reviewed. It is below the limits set by the Radiation Protocol Commit marques (RPC). Dose modulation, iterative reconstruction, and/or weight based adjustment of the mA/kV was utilized to reduce the radiation dose to as low as reasonably achievable. FINDINGS: LINES/ TUBES: None. LUNGS, AIRWAYS and PLEURA: Evaluation of the lungs is severely limited by respiratory motion artifact, however, within the confines of this limitations there are no focal consolidation, pleural effusion or pneumothorax. There is b ibasilar atelectasis. No suspicious large mass identified. The central airways are patent and the trachea is midline. HEART AND MEDIASTINUM: The thyroid gland is normal. . No mediastinal, hilar or axillary lymphadenopathy. The h eart is normal in size with atherosclerotic calcification of the coronary vess els.. There is no pericardial effusion. UPPER ABDOMEN: Unremarkable. BONES: There are degenerative changes in the thoracic spine. Suture anchor in the right humeral head. SOFT TISSUES: Unremarkable. IMPRESSION: Evaluation of the lungs is severely limited by respiratory motion artifact. Ho wever, within the confines of this limitations there are no focal consolidatio n, pleural effusion or pneumothorax. Signed by: Corinna Huynh MD on 04/26/20 7:02 PM Dictated By: CORINNA HUYNH MD 01 Transcribed By: JENNI on 04/26/201901 C OPY TO: CYNDIE MILLS MD Serum or plasma creatine kinase measurement (enzymatic activity/volume)2020-04-26 13:59:00* Test Item Value Reference Range Interpretation Comments Creatine Kinase (test code = 2157-6) 38 30-200 [facility] creatine kinase MB measurement (mass/volume)2020-04-26 13:59:00* Test Item Value Reference Range Interpretation Comments Creatine Kinase MB (test code = 06755-9) 0.40 0-5.0 [facility] SoutheastTroponin I measurement by highly sensitive enzyme zwfvyazsbyt4007-84-48 13:59:00* Test Item Value Reference Range Interpretation Comments Troponin I (test code = 83529-6) < 0.001 0-0.300 [facility] SoutheastFluoroscopic procedure less than one hour hupkucip7301-43-48 05:20:00* Test Item Value Reference Range Interpretation Comments Hemoglobin A1c Percent (test code = Hemoglobin A1c Percent) 7.3 4.0-7.0 [facility] SoutheastPhosphorus cwckjraesxw4039-13-86 05:20:00 * Test Item Value Reference Range Interpretation Comments Phosphorus Level (test code = BNJ5105) 3.2 2.3-4.7 [facility] magnesium measurement (mass/volume)2020-04-26 05:20:00* Test Item Value Reference Range Interpretation Comments Magnesium Level (test code = 95392-7) 2.0 1.3-2.1 [facility] triglyceride measurement (mass/volume)2020-04-26 05:20:00* Test Item Value Reference Range Interpretation Comments Triglycerides Level (test code = 2571-8) 158 0-149 [facility] cholesterol measurement (mass/volume)2020-04-26 05:20:00* Test Item Value Reference Range Interpretation Comments Cholesterol Level (test code = 2093-3) 98 0-199 Less than 200 mg/dL Low Iusf148 - 239 mg/dL Borderline Peuy108 m g/dl and greater High Risk [facility] cholesterol in LDL measurement (mass/volume) 2020-04-26 05:20:00* Test Item Value Reference Range Interpretation Comments LDL Cholesterol (test code = 2089-1) 45 60-130 [facility] cholesterol in HDL measurement (mass/volume)2020-04-26 05:20:00* Test Item Value Reference Range Interpretation Comments HDL Cholesterol (test code = 2085-9) 21 40-60 [facility] total cholesterol/cholesterol in HDL mass peilr9484-99-04 05:20:00* Test Item Value Reference Range Interpretation Comments Cholesterol/HDL Ratio (test code = 9830-1) 4.7 3.9-4.7 [facility] thyrotropin measurement by detection limit <= 0.005 miu/l (units/volume)2020-04-26 05:20:00* Test Item Value Reference Range Interpretation Comments Thyroid Stimulating Hormone (TSH) (test code = 02097-5) 6.377 0.350-4.940 [facility] SoutheastFluoroscopic procedure less than one hour ibfvwxtm1982-32-72 20:45:00* Test Item Value Reference Range Interpretation Comments Coronavirus (PCR) (test code = Coronavirus (PCR)) NOT DETECTED NOTD ETECTED SARS-COV2/RT-PCR CEPHEIDResults are for the detection of SARS-COV-2 RNA. The NATHAN S-COV-2 RNA is generally detectable in nasopharyngeal swab specimens during the acute phase of infection. Positive results are indicitive of active infection wi SARS-COV-2; clinical correlation with patient history and other diagnostic in formation is necessary to determine patient infection status. Positive results d o not rule out bacterial infection or co-infection with other viruses. The agent detected may not be the definite cause of the disease.The limit of detection for this assay is 250 copies/mLThe SARS-CoV-2 test is a rapid, real-time RT-PCR test intended for the qualitative detection of nucleic acid from SARS-CoV-2 in horacio opharyngeal swab specimen collected from individuals suspected of COVID-19 by eir healthcare provider. This test has not been Food and Drug Administration (FD A) cleared or approved and has been authorized by FDA under an Emergency Use Aut horization (EUA). This EUA will be effective until the declaration that circumst ances exist justifying the authorization of the emergency use of in vitro diagno stic test for detection and or diagnosis of COVID-19 is terminated under section 564(b) of the Act, or the the EUA is revoked under 564(g) of the ACT.[facility] SoutheastUrine color exbymrydqfywx0882-96-55 20:30:00* Test Item Value Reference Range Interpretation Comments Urine Color (test code = 5778-6) YELLOW YELLOW [facility] SoutheastUrine amrvaxj3807-10-07 20:30:00* Test Item Value Reference Range Interpretation Comments Urine Clarity (test code = 71325-4) SL CLOUDY CLEAR [facility] gravity of Urine by Test strip 2020-04-25 20:30:00* Test Item Value Reference Range Interpretation Comments Urine Specific [place] (test code = 5811-5) 1.010 1.010-1.02 5 [facility] SoutheastUrine pH measurement by automated test dtiqx4334-84-44 20:30:00* Test Item Value Reference Range Interpretation Comments Urine pH (test code = 76277-1) 5 5-7 [facility] SoutheastUrine leukocyte esterase detection by rizyttxm9698-08-05 20:30:00* Test Item Value Reference Range Interpretation Comments Urine Leukocyte Esterase (test code = 5799-2) MODERATE NEGATIVE [facility] SoutheastUrine nitrite wkatxnckt8850-89-19 20:30:00* Test Item Value Reference Range Interpretation Comments Urine Nitrite (test code = 95629-2) NEGATIVE NEGATIVE [facility] SoutheastUrine protein measurement by test strip (mass/volume)2020-04-25 20:30:00* Test Item Value Reference Range Interpretation Comments Urine Protein (test code = 5804-0) TRACE NEGATIVE [facility] SoutheastUrine glucose vvhmbqzxk6119-60-72 20:30:00* Test Item Value Reference Range Interpretation Comments Urine Glucose (UA) (test code = 2349-9) NEGATIVE NEGATIVE [facility] SoutheastUrine ketones detection by automated test cicnn1919-40-02 20:30:00* Test Item Value Reference Range Interpretation Comments Urine Ketones (test code = 31337-6) NEGATIVE NEGATIVE [facility] SoutheastUrine urobilinogen measurement by test strip (mass/volume)2020-04-25 20:30:00* Test Item Value Reference Range Interpretation Comments Urine Urobilinogen (test code = 32477-5) 0.2 0.2-1 [facility] SoutheastUrine total bilirubin measurement (mass/volume)2020-04-25 20:30:00* Test Item Value Reference Range Interpretation Comments Urine Bilirubin (test code = 1978-6) NEGATIVE NEGATIVE [facility] SoutheastUrine erythrocytes lvjaretza2152-12-51 20:30:00* Test Item Value Reference Range Interpretation Comments Urine Blood (test code = 39496-8) TRACE NEGATIVE [facility] SoutheastAutomated urine sediment leukocyte count by microscopy (number/high power field)2020-04-25 20:30:00* Test Item Value Reference Range Interpretation Comments Urine WBC (test code = 5821-4) 21-50 0-5 [facility] SoutheastErythrocytes detection in urine sediment by light nysmmgxxmd4225-70-30 20:30:00* Test Item Value Reference Range Interpretation Comments Urine RBC (test code = 43836-2) 0-5 0-5 [facility] SoutheastBacteria detection in urine sediment by light qnwzaxxmtz5643-80-07 20:30:00* Test Item Value Reference Range Interpretation Comments Urine Bacteria (test code = 22604-1) MANY NONE [facility] SoutheastEpithelial cells detection in urine sediment by light ymmieqpokl9022-90-67 20:30:00* Test Item Value Reference Range Interpretation Comments Urine Epithelial Cells (test code = 79690-2) NONE NONE [facility] SoutheastBacterial urine latjuto0631-14-37 20:30:00* Test Item Value Reference Range Interpretation Comments Urine Culture (test code = 630-4) ESCHERICHIA COLI [facility] SoutheastCHEST SINGLE (PORTABLE)2020-04-25 20:12:00 [facility] [address] [place] [address] Patient Name: UMER MORENO MR #: [id number] : 1945 Age/Sex: 74/M Req #: [id number] Adm Physician: Ordered by: STONEY OBRIEN MD Report #: [id number] Location: ER Room/Bed: Procedure: [id number] DX/CHEST SINGLE (PORTABLE) Exam Date: 04/25/20 Exam Time: 194 5 REPORT STATUS: Signed EXAMINAT ION: CHEST SINGLE (PORTABLE) INDICATION: Fever COMPARISON: Chest x-ray on 04/16/2020. FINDINGS: TUBES and LINES: None. L UNGS: Normal lung volumes. There is hazy opacification the bilateral lung bas es, right more to left. PLEURA: No pleural effusion or pneumothorax. HEART AND MEDIASTINUM: The cardiomediastinal silhouette is unremarkable. BONES AND SOFT TISSUES: No acute osseous lesion. Soft tissues are unremar kable. UPPER ABDOMEN: No free air under the diaphragm. IMPRESSION: Hazy opacification of bilateral lung bases, right more to left which may represent aspiration and/or developing multifocal pneumonia in the proper cl inical setting. Signed by: Corinna Huynh MD on 04/25/2020 8:23 PM Dic tated By: CORINNA HUYNH MD 22 COPY TO: STONEY OBRIEN MD Prothrombin time (PT) in platelet poor plasma by coagulation igifu9312-24-28 18:50:00* Test Item Value Reference Range Interpretation Comments Prothrombin Time (test code = 5902-2) 13.3 11.9-14.5 [facility] SoutheastINR in Platelet poor plasma by Coagulation uwytu8783-44-69 18:50:00* Test Item Value Reference Range Interpretation Comments Prothromb Time International Ratio (test code = 6301-6) 0.96 Oral Anticoagulant Therapy INR Values:1. Low Intensity Therapy 1.5 - 2.02 . Moderate Intensity Therapy 2.0 - 3.03. High Intensity Therapy(1) 2.5 - 3. 54. High Intensity Therapy(2) 3.0 - 4.05. Panic Value INR > 5.0 [facility] SoutheastActivated partial thromboplastin time (aPTT) in platelet poor plasma by coagulation pxbpj9523-60-83 18:50:00* Test Item Value Reference Range Interpretation Comments Activated Partial Thromboplast Time (test code = 04907-2) 34.2 23.8-35.5 [facility] SoutheastFluoroscopic procedure less than one hour wjlelypu8781-30-66 18:50:00* Test Item Value Reference Range Interpretation Comments Lactic Acid Level (test code = Lactic Acid Level) 1.2 0.5- 2.0 [facility] SoutheastBlood tcwxxry0096-28-47 18:50:00* Test Item Value Reference Range Interpretation Comments Blood Culture (test code = 15788558) NO GROWTH AFTER 72 HOURS [facility] SoutheastCT ABDOMEN/PELVIS [id number] 17:54:00 [address] [address] Patient Name: UMER MORENO MR #: [id number] : 1945 Age/Sex: 74/M Req #: [id number] [facility] Physician: Ordered by: Rubi Conrad MD Report #: [id number] Location: ER Room/Bed: Procedure: [id number] CT/CT ABDOM EN/PELVIS WO Exam Date: 04/16/20 Exam Time: 1655 REPORT STATUS: Signed EXAMINATION: CT of the abdomen and pelvis without contrast. TECHNIQUE: Spiral CT images of the abdomen and pelvis were performed from the lung bases to the lesser tr ochanters. No intravenous contrast was given per renal stone protocol.. Benoit nal and sagittal reformatted images were obtained. COMPARISON: Renal ultras ound 12/29/2019 CLINICAL HISTORY:Abdominal pain, UTI symptoms and hematuria DISCUSSION: ABSENCE OF INTRAVENOUS CONTRAST DECREASES SENSITIVITY FOR D ETECTION OF FOCAL LESIONS AND VASCULAR PATHOLOGY. ABDOMEN/PELVIS: LO WER THORAX: Lung bases are grossly clear. HEPATOBILIARY: Diffuse hepatic s teatosis. Hepatic size and contour are normal. No focal lesions. No intra or extrahepatic biliary ductal dilation. GALLBLADDER: No radio-opaque stones o r sludge. No wall thickening. SPLEEN: No splenomegaly. PANCREAS: No f ocal masses or ductal dilatation. ADRENALS: No adrenal nodules. KIDNEY S/URETERS: No renal or ureteral calculi, hydronephrosis or obstruction. No con tour abnormalities. 1.6 cm fluid density simple cyst in the left interpolar re gion (series 3, image 62). Mild to moderate bilateral perinephric stranding. No contour abnormalities. PELVIC ORGANS/BLADDER: Moderate circumferential bladder wall thickening. Prostate measures 4.8 x 3.4 x 3.9 cm (estimated vol ume 33 mL), and contains dystrophic calcifications. Seminal vesicles are unrem arkable. PERITONEUM/RETROPERITONEUM: No free air or fluid. LYMPH NODES : No intra-abdominal,retroperitoneal, pelvic or inguinal lymphadenopathy. VESSELS: Mild atherosclerotic calcification of the distal abdominal aorta. GI TRACT: No bowel dilation or evidence of obstruction. BONES AND SOFT TIS SUES: No aggressive lytic or suspicious focal sclerotic lesions. Small bilater al fat-containing inguinal hernias, left greater than right. Soft tissues are otherwise unremarkable IMPRESSION: 1. Moderate circumferential shana dder wall thickening. This may be secondary to bladder outlet obstruction from a mildly enlarged prostate, however, cystitis is also a consideration. 2. Mild to moderate bilateral perinephric stranding. No renal, ureteral or blad katy calculi. No hydronephrosis or obstruction. Unable to evaluate for pyelonep hritis given the lack of intravenous contrast. 3. Diffuse hepatic steatosis . Signed by: Dr. Nick Ford M.D. on 04/16/2020 6:08 PM Dictat ed By: NICK FORD MD 07 COPY TO: SURY CONRAD MD CHEST SINGLE (PORTABLE)2020-04-16 16:12:00 [address] [address] Patient Name: UMER MORENO MR #: [id number] : 1945 Age/Sex: 74/M Req #: [id number] Adm Physician: Ordered by: Rubi Conrad MD Report #: [id number] Location: ER Room/Bed: Procedure: [id number] DX/CHEST SI NGLE (PORTABLE) Exam Date: 04/16/20 Exam Time: 1549 REPORT STATUS: Signed EXAMINATIO N: CHEST SINGLE (PORTABLE) INDICATION: Fever COMPARISON: Chest ra diograph 11/01/2018 FINDINGS: LINES/TUBES:None LUNGS:The lungs are well-inflated. No focal consolidation or pulmonary edema. PLEURA:No pl eural effusion or pneumothorax. MEDIASTINUM:The cardiomediastinal silhouett e appears normal in size and shape. BONES/SOFT TISSUES:No acute osseous inj ury. Right proximal humerus anchors. ABDOMEN:No free air under the diaphrag m. IMPRESSION: No focal pneumonia or pulmonary edema. 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 FINDINGS: Right Kidney: Length: 12.7 cm Appearance: No rmal echogenicity. Collecting system: No hydronephrosis Stones: None Cys t/Mass: None Left Kidney: Length: 12.3 cm Appearance: Normal echogenic ity. Collecting system: No hydronephrosis Stones: None Cyst/Mass: Upper pole 1.4 cm anechoic simple cyst. Bladder: No mass or calculi. Bilateral ureteral jets visualized. Prevoid volume estimate of 348 cc. Prostate vo lume estimate of 40.2 cc. IMPRESSION: Left upper pole simple cyst. N o hydronephrosis or renal calculi. Signed by: Adria Mcallister MD on 12/29/2019 10 :08 AM Dictated By: ADRIA MCALLISTER MD 07 Transcribed By: JENNI on 12/29/191007 COPY TO: RANDI DURHAM MD CHEM [id number] 14:19:000.9[facility]CHE[facility] ABVIT1109-16-25 14:19:0085[facility]AB[facility] ([facility]UB)2019-06-08 10:08:00 [place] [address] Patient Name: UMER MORENO MR #: [id number] : 1945 Age/Sex: 73/M Req #: [id number] Adm Physician: Ordered by: RANDI LEE MD Report #: [id number] Location: [facility] Room/Bed: Procedure: [id number] DX/A BDOMEN-1VIEW (KUB) Exam Date: 06/08/19 Exam Time: 09 10 REPORT STATUS: Signed Abdo men, 1 view. History: Kidney stones. Comparison: 12/22/2018. Fi ndings: Air is scattered throughout nondilated small and large bowel. There ar e no masses. The previously seen small calcification projected over the right renal lower pole is not seen on today's exam. The osseous structures are intac t. IMPRESSION: Non-specific bowel gas pattern. Signed by: Boni Sparrow on 06/08/2019 10:10 AM Dictated By: BONI SPARROW MD Electronical ly Signed By: BONI SPARROW MD on 06/08/19 1010 Transcribed By: JENNI on 05/30 1010 COPY TO: RANDI LEE MD LACTIC ACID [id number] 12:50:00* Test Item Value Reference Range Interpretation Comments LACTIC ACID POC (test code = LACTP) 2.20 mmol/L 0.7-2.0 HH DSQEVZGWS6998-83-61 11:01:00* Test Item Value Reference Range Interpretation Comments POTASSIUM (test code = K) 5.0 mmol/L 3.4-5.0 N HGB [id number] 10:53:00* Test Item Value Reference Range Interpretation Comments HEMOGLOBIN (test code = HGB) 11.8 g/dL 14.0-18.0 L HEMATOCRIT (test code = HCT) 37.1 % 37.0-49.0 N - CT ABD PELVIS W/[id number] 10:12:00 FAX: Maira Khanna MD [phone] [place]: St: REG Name: UMER ZHOU [facility] : 7 Age/S: 73/M [address] Unit: [id number] Loc: [place] [address] Phys: Maira Khanna MD Acct: [id number] Dis Date: Status: REG ER PHONE #: [phone] Exam Date: 03/03/2019 1000 FAX #: [phone] Reason: llq pain EXAMS: CPT CODE: [id number] CT ABD PELVIS W/CONT 98270 EXAM: - CT ABD PELVIS W/CONT LOCATION: [...] Signed Report (CONTINUED) FAX: Maira Khanna MD [phone] [place]: St: REG Name: UMER MORENO [facility] : 1945 Age/S: 73/M [address] Unit: [id number] Loc: [place] [address] P hys: Maira Khanna MD Acct: [id number] Dis Date: Status: REG ER PHONE #: [phone] Exam Date: 03/03/2019 1000 FAX #: [phone] Reason: llq pain EXAMS: CPT CODE: [id number] CT ABD PELVIS W/CONT 95376 <Continued> Lymphatics: No enlarged lymph nodes by [...] (1015 PAGE 2 Signed Report BASIC METABOLIC [id number] 09:57:00* Test Item Value Reference Range Interpretation [...] CA) 8.8 mg/dL 8.4-10.2 N LIVER FUNCTION DXSCC8707-30-78 09:57:00* Test Item Value Reference Range Interpretation [...] code = ALKP) 38 U/L 38-126 N NAHZSU8983-30-27 09:57:00* Test Item Value Reference Range Interpretation Comments LIPASE (test code = LIP) 255 U/L 23-300 N BEDSIDE YZDICBROOP8547-27-64 09:53:00* Test Item Value Reference Range Interpretation Comments BEDSIDE CREATININE (test code = CREATBED) 1.2 mg/dL 0.66-1.25 N PROTHROMBIN GVYN9484-82-16 09:52:00* Test Item Value Reference Range Interpretation [...] with Food and Drug Administrationrecommendations. THROMBOPLASTIN TIME CQFCMKB2080-45-56 09:52:00* Test Item Value Reference Range Interpretation Comments THROMBOPLASTIN TIME PARTIAL (test code = PTT) 22.4 SECONDS 23.4-37. 0 L Therapeutic Range for Heparin EFFECTIVE 03/08/13 Heparin IU/mL aPTT Seconds0.3 64.30.7 88.8 CBC W/AUTO QKQW5479-44-92 09:44:00* Test Item Value Reference Range Interpretation [...] x10 3/uL 0.0-0.1 N ABDOMEN-1VIEW (KUB)2018-12-22 09:21:00 [place] [address] Patient Name: UMER MORENO MR #: [id number] : 1945 Age/Sex: 73/M Req #: [id number] Adm Physician: Ordered by: RANDI LEE MD Report #: [id number] Location: [facility] Room/Bed: Procedure: [id number] DX /ABDOMEN-1VIEW (KUB) Exam Date: 12/22/18 Exam [...] ibed By: JENNI on 12/22/18924 COPY TO: RANDI LEE MD CT ABDOMEN/PELVIS HGR1063-44-56 10:12:00 [place] [address] Patient Name: UMER MORENO MR #: [id number] : 1945 Age/Sex: 73/M Req #: [id number] Adm Physician: Ordered by: RANDI LEE MD Report #: [id number] Location: CT Room/Bed: Procedure: [id number] CT /CT ABDOMEN/PELVIS WOW Exam Date: 11/07/18 [...] No pneumoperitoneum or ascites. BONES: No ac navajo or suspicious bony lesions. SOFT TISSUES: Superficial [...] By: JENNI on 11/07/18 1037 COPY TO: RANDI LEE MD FWJKMNL2985-61-80 17:21:00 [place] [address] Patient Name: UMER MORENO MR #: [id number] : 1945 Age/Sex: 73/M Req #: [id number] Adm Physician: Ordered by: DEANA GARCIA M.D. Report #: [id number] Location: Room/Bed: Procedure: [id number] US/US THYROID Exam Date: 11/01/18 Exam Time: [...] MD 21 T ranscribed By: JENNI on 11/01/18 172 COPY TO: DEANA GARCIA M.D. CHEST 2 RHAXT1163-80-66 15:13:[address], [place], [place] [address] Patient Name: UMER MORENO MR #: [id number] : 1945 Age/Sex: 73/M Req #: [id number] Adm Physician: Ordered by: DEANA GARCIA M.D. Report #: [id number] Location: Room/Bed: Procedure: [id number] DX/CHEST 2 VIEWS Exam Date: 11/01/18 Exam [...] JOHNSON MD 1514 Transcribed By: JENNI on 11/01/18 1514 COPY TO: DEANA GARCIA M.D. CT ABDOMEN/PELVIS [id number] 10:30:00 [place] [address] Patient Name: UMER MORENO MR #: [id number] : 1945 Age/Sex: 73/M Req #: [id number] Adm Physician: Ordered by: RANDI LEE MD Report #: [id number] Location: CT Room/Bed: Procedure: [id number] CT /CT ABDOMEN/PELVIS WO Exam Date: 10/19/18 [...] AM Di ctated By: MARIYA ROSALES DO 42 COPY TO: LESTER LEE RD, MD ABDOMEN-1VIEW (KUB)2018-07-18 09:41:00 [place] [address] Patient Name: UMER MORENO MR #: [id number] : 1945 Age/Sex: 73/M Req #: [id number] Adm Physician: Ordered by: RANDI LEE MD Report #: [id number] Location: [facility] Room/Bed: Procedure: [id number] DX /ABDOMEN-1VIEW (KUB) Exam Date: 07/18/18 Exam [...] Transcribed By: ALIREZA on 07/18/18940 COPY TO: RANDI LEE MD ABDOMEN-1VIEW (KUB)2018-03-11 12:18:00 [place] [address] Patient Name: UMER MORENO MR #: [id number] : 1945 Age/Sex: 72/M Req #: [id number] Adm Physician: Ordered by: RANDI LEE MD Report #: [id number] Location: [facility] ed: Procedure: [id number] DX/ABDOMEN-1VIEW (KUB) Exam Date: 03/11/18 Exam Time: 0950 REPORT STATUS: Signed PROCEDURE: X-RAY ABDOMEN - KUB COMPARISON: [facility], DX, ABDOMEN-1VIEW (KUB), 11/08/2017, 9:39. INDICATIONS: CALCUL [...] By: ALIREZA on 03/11/18 1218 COPY TO: RANDI LEE MD BLOOD BANK OYGDLVJ3216-54-04 20:12:00Negative (11/10/17 3:12 PM)[facility] PZRAL7690-03-18 20:03:0081[facility] YNXKU2441-22-09 20:03:0025 [facility] JHXSX7098-08-12 20:03:009.4[facility] PANEL 2017-11-10 20:03:93740Vldxqbwa HermannCHEM FLMIB9127-29-84 20:03:003.8[facility] QVHYQ2866-98-74 20:03:67965Toiagmjr HermannCHEM RQNQF3180-04-23 20:03:00336Djjzqnga HermannCHEM PVHFK7958-57-58 20:03:000.95[facility]ann[facility] YALOC0211-41-99 20:03:009[facility] BQAPP5299-52-23 20:03:0013.8 [facility] YdmsyjiWRAGSHDPGX3672-52-72 20:03:008.1[facility]annHEMATOLOGY 2017-11-10 20:03:002.0[facility] UghhtmsYXWVWBZQMV5863-16-02 20:03:0035.0[facility] KkwuantUYQLCSLSMT8703-93-31 20:03:003.0[facility] BxizdhjORQTWEXHIC3682-18-63 20:03:000.3[facility] AurcuhaUCKFLXBXLF0976-07-80 20:03:0054.6[facility] Chivo KEFWGSJUIQ6770-05-38 20:03:001.9[facility] XjxpjmlWURGTTVTCB4342-25-15 20:03:000.4 [facility] UucqpshOYLRIROKVP1092-28-12 20:03:001+ *ABN*(11/10/17 3:03 PM)[facility] DorxxigMSHYDWWXAW9004-49-20 20:03:000.1[facility] PmreedkEFQODRMUMA4510-70-55 20:03:008.6[facility] RuhvfocIPRDBAXKMZ6710-16-39 20:03:00* Test Item Value Reference Range Interpretation Comments Max Amplitude Rapid (test code = Max Amplitude Rapid) 63 mm 52-71 [facility]viewRpbmepyUWGZHLEXSF9712-98-53 20:03:001.0[facility]annHEMATOLOGY 2017-11-10 20:03:00* Test Item Value Reference Range Interpretation Comments Split Point Rapid (test code = Split Point Rapid) 0.6 min [facility]dsxlmxOYVLMUMBMX5243-21-54 20:03:00* Test Item Value Reference Range Interpretation Comments Angle Rapid (test code = Angle Rapid) 75 degrees 64-80 [facility]viewEeiwnocJKWIMJVIUT2610-16-92 20:03:00* Test Item Value Reference Range Interpretation Comments R-time Rapid (test code = R-time Rapid) 0.8 min 0.4-0.7 [facility] HospitalEqcusqnSRUEVBXUBZ5239-70-12 20:03:00* Test Item Value Reference Range Interpretation Comments K-time Rapid (test code = K-time Rapid) 1.2 min 0.6-2.3 [facility] HospitalLdxgduvXWXCZKWNHA9120-44-16 20:03:00* Test Item Value Reference Range Interpretation Comments ACT (TEG) Rapid (test code = ACT (TEG) Rapid) 121 s 86-118 [facility]viewYlpxbvuISJPLESWFA6540-80-71 20:03:00* Test Item Value Reference Range Interpretation Comments PTT (test code = PTT) 26.8 s 22.9-35.8 [facility] LongviewTulcbzdXEAKXYOYBL9642-82-74 20:03:00* Test Item Value Reference Range Interpretation Comments PT (test code = PT) 13.1 s 12.0-14.7 [facility] LongviewHkqdzedBPEMJLYTJY7620-37-63 20:03:00* Test Item Value Reference Range Interpretation Comments INR (test code = INR) 0.99 1 0.85-1.17 [facility]TtczchuISXRIGZWTQ5958-34-23 20:03:008.8[facility]annHEMATOLOG[facility] 2017-11-10 20:03:005.4[facility] LcbpzkvPJSHLXHUEX0685-99-06 20:03:00* Test Item Value Reference Range Interpretation Comments MCH (test code = MCH) 25.8 pg 27.0-31.0 [facility] HospitalIamhqyhEHTVKLDWLH5394-40-24 20:03:0077.0[facility]HEMATOLOG[facility] 2017-11-10 20:03:0041.2[facility] FkhipohNEIEUJXKQU9643-28-14 20:03:0013.8[facility] JrletghYONSXNMSBG8384-29-14 20:03:005.35[facility] KpstzqlZUNCYYPIGC4811-22-28 20:03:63006Bkvppbio NaryqjlQIQBMBYOZR7713-69-19 20:03:0015.1[facility] CIYYXOFRUV3234-76-09 20:03:0033.5[facility] FirestoneSodium Vvpdx1592-12-62 13:04:00 * Test Item Value Reference Range Interpretation Comments Sodium Level (test code = 2951-2) 139 136-145 [facility]Potassium Erwlr8073-56-34 13:04:00* Test Item Value Reference Range Interpretation Comments Potassium Level (test code = 2823-3) 4.1 3.5-5.1 [facility] SoutheastChloride Ajhdd4472-36-41 13:04:00* Test Item Value Reference Range Interpretation Comments Chloride Level (test code = 2075-0) 103 98-107 [facility] SoutheastCarbon Dioxide Ckdgt8236-70-73 13:04:00* Test Item Value Reference Range Interpretation Comments Carbon Dioxide Level (test code = 2028-9) 29 22-29 [facility] SoutheastAnion Bzk0591-62-62 13:04:00* Test Item Value Reference Range Interpretation Comments Anion Gap (test code = 29528-4) 11.1 8-16 [facility] SoutheastBlood Urea Omhdjddl5095-64-50 13:04:00* Test Item Value Reference Range Interpretation Comments Blood Urea Nitrogen (test code = 3094-0) 10 7-26 [facility] SoutheastCreatinine2018-03-14 13:04:00* Test Item Value Reference Range Interpretation Comments Creatinine (test code = 2160-0) 1.06 0.72-1.25 [facility] SoutheastBUN/Creatinine Mcboc8074-20-53 13:04:00* Test Item Value Reference Range Interpretation Comments BUN/Creatinine Ratio (test code = 3097-3) 9 6-25 [facility] SoutheastEstimat Glomerular Filtration Rate 2017-11-10 13:04:00* Test Item Value Reference Range Interpretation Comments Estimat Glomerular Filtration Rate (test code = 59437-5) 60- >60 Ranges were taken from the National Kidney Disease Education Program and the [facility] literature.Reference ranges:60 or greater: Earqng25-99 ( for 3 consecutive months): Chronic kidney disease 15 or less: Kidney failureHCA Houston Healthcare SoutheastGlucose Kzesk3690-17-16 13:04:00* Test Item Value Reference Range Interpretation Comments Glucose Level (test code = RPN7951) 229 74-118 H [facility] SoutheastCalcium Tdocq1477-24-91 13:04:00* Test Item Value Reference Range Interpretation Comments Calcium Level (test code = 83444-2) 9.3 8.4-10.2 [facility] SoutheastTotal Pjxvuqiaz9385-98-12 13:04:00* Test Item Value Reference Range Interpretation Comments Total Bilirubin (test code = 1975-2) 0.6 0.2-1.2 [facility] SoutheastAspartate Amino Transf (AST/SGOT) 2017-11-10 13:04:00* Test Item Value Reference Range Interpretation Comments Aspartate Amino Transf (AST/SGOT) (test code = Aspartate Amino Transf (AST/SGOT)) 16 5-34 [facility] SoutheastAlanine Aminotransferase (ALT/SGPT) 2017-11-10 13:04:00* Test Item Value Reference Range Interpretation Comments Alanine Aminotransferase (ALT/SGPT) (test code = 1742-6) 23 0-55 [facility] SoutheastTotal Kdvtnjv8930-11-62 13:04:00* Test Item Value Reference Range Interpretation Comments Total Protein (test code = 2885-2) 7.3 6.5-8.1 [facility] SoutheastAlbumin2018-03-14 13:04:00* Test Item Value Reference Range Interpretation Comments Albumin (test code = 1751-7) 4.1 3.5-5.0 [facility] SoutheastGlobulin2018-03-14 13:04:00* Test Item Value Reference Range Interpretation Comments Globulin (test code = 46170-8) 3.2 2.3-3.5 [facility] SoutheastAlbumin/Globulin Mqgbe2466-25-59 13:04:00 * Test Item Value Reference Range Interpretation Comments Albumin/Globulin Ratio (test code = 1759-0) 1.3 0.8-2.0 [facility] SoutheastAlkaline Izdojhrgsex2236-36-93 13:04:00* Test Item Value Reference Range Interpretation Comments Alkaline Phosphatase (test code = 6768-6) 33 40-150 L [facility] SoutheastProthrombin Lnim6537-36-78 13:03:00* Test Item Value Reference Range Interpretation Comments Prothrombin Time (test code = 5902-2) 13.3 11.9-14.5 [facility] SoutheastProthromb Time International Ratio 2017-11-10 13:03:00* Test Item Value Reference Range Interpretation Comments Prothromb Time International Ratio (test code = 6301-6) 1.09 Oral Anticoagulant Therapy INR Values:1. Low Intensity Therapy 1.5 - 2.02 . Moderate Intensity Therapy 2.0 - 3.03. High Intensity Therapy(1) 2.5 - 3. 54. High Intensity Therapy(2) 3.0 - 4.05. Panic Value INR > 5.0 [facility] SoutheastActivated Partial Thromboplast Time 2017-11-10 13:03:00* Test Item Value Reference Range Interpretation Comments Activated Partial Thromboplast Time (test code = 37550-3) 26.1 23.8-35.5 [facility] SoutheastWhite Blood Utobv9799-86-63 12:44:00* Test Item Value Reference Range Interpretation Comments White Blood Count (test code = 6690-2) 5.36 4.8-10.8 [facility] SoutheastRed Blood Pkkup7186-88-28 12:44:00* Test Item Value Reference Range Interpretation Comments Red Blood Count (test code = 789-8) 5.11 4.3-5.7 [facility] SoutheastHemoglobin2018-03-14 12:44:00* Test Item Value Reference Range Interpretation Comments Hemoglobin (test code = 42214-8) 13.3 14.0-18.0 L [facility] SoutheastHematocrit2018-03-14 12:44:00* Test Item Value Reference Range Interpretation Comments Hematocrit (test code = 4544-3) 39.4 38.2-49.6 [facility] SoutheastMean Corpuscular Zfsksm6433-85-17 12:44:00* Test Item Value Reference Range Interpretation Comments Mean Corpuscular Volume (test code = 787-2) 77.1 81-99 L [facility] SoutheastMean Corpuscular Flmhamgtyc1852-98-06 12:44:00* Test Item Value Reference Range Interpretation Comments Mean Corpuscular Hemoglobin (test code = 785-6) 26.0 28-32 L [facility] SoutheastMean Corpuscular Hemoglobin Concent 2017-11-10 12:44:00* Test Item Value Reference Range Interpretation Comments Mean Corpuscular Hemoglobin Concent (test code = 786-4) 33.8 31-35 [facility] SoutheastRed Cell Distribution Wgnhn1028-57-35 12:44:00* Test Item Value Reference Range Interpretation Comments Red Cell Distribution Width (test code = 48565-0) 14.3 11.7 -14.4 [facility] SoutheastPlatelet Kjwgh3561-69-70 12:44:00* Test Item Value Reference Range Interpretation Comments Platelet Count (test code = 777-3) 242 140-360 [facility] SoutheastNeutrophils (%) (Auto)2017-11-10 12:44:00 * Test Item Value Reference Range Interpretation Comments Neutrophils (%) (Auto) (test code = 22807-0) 56.5 38.7-80.0 [facility] SoutheastLymphocytes (%) (Auto)2017-11-10 12:44:00 * Test Item Value Reference Range Interpretation Comments Lymphocytes (%) (Auto) (test code = 736-9) 33.0 18.0-39.1 [facility] SoutheastMonocytes (%) (Auto)2017-11-10 12:44:00* Test Item Value Reference Range Interpretation Comments Monocytes (%) (Auto) (test code = 5905-5) 7.8 4.4-11.3 [facility] SoutheastEosinophils (%) (Auto)2017-11-10 12:44:00 * Test Item Value Reference Range Interpretation Comments Eosinophils (%) (Auto) (test code = 713-8) 2.1 0.0-6.0 [facility] SoutheastBasophils (%) (Auto)2017-11-10 12:44:00* Test Item Value Reference Range Interpretation Comments Basophils (%) (Auto) (test code = 706-2) 0.2 0.0-1.0 [facility] SoutheastIM GRANULOCYTES %2017-11-10 12:44:00* Test Item Value Reference Range Interpretation Comments IM GRANULOCYTES % (test code = IM GRANULOCYTES %) 0.4 0.0- 1.0 [facility] SoutheastNeutrophils # (Auto)2017-11-10 12:44:00* Test Item Value Reference Range Interpretation Comments Neutrophils # (Auto) (test code = 751-8) 3.0 2.1-6.9 [facility] SoutheastLymphocytes # (Auto)2017-11-10 12:44:00* Test Item Value Reference Range Interpretation Comments Lymphocytes # (Auto) (test code = 16381-9) 1.8 1.0-3.2 [facility] SoutheastMonocytes # (Auto)2017-11-10 12:44:00* Test Item Value Reference Range Interpretation Comments Monocytes # (Auto) (test code = 742-7) 0.4 0.2-0.8 [facility] SoutheastEosinophils # (Auto)2017-11-10 12:44:00* Test Item Value Reference Range Interpretation Comments Eosinophils # (Auto) (test code = 711-2) 0.1 0.0-0.4 [facility] SoutheastBasophils # (Auto)2017-11-10 12:44:00* Test Item Value Reference Range Interpretation Comments Basophils # (Auto) (test code = 704-7) 0.0 0.0-0.1 [facility] SoutheastAbsolute Immature Granulocyte (auto 2017-11-10 12:44:00* Test Item Value Reference Range Interpretation Comments Absolute Immature Granulocyte (auto (rajendra t code = Absolute Immature Granulocyte (auto) 0.02 0-0.1 [facility] [address] [place] [address] Patient Name: UMER MORENO MR #: [id number] : 1945 Age/Sex: 72/M Req #: [id number] Adm Physician: Ordered by: BONI ELKINS [employer] Report #: [id number] Location: ER Room/Bed: Procedure: [id number] CT/CT CERVICAL SPINE LES [place] Date: 11/10/17 [...] 11:21 AM Dictated By: TRIP CONNELLY MD 112 Transcribed By: JENNI on 11/10/17 1121 COPY TO: BONI ELKINS [employer] HELPER CT MAXIO FAC/PARANAS WO [place] [address] Patient Name: UMER MORENO MR #: [id number] : 1945 Age/Sex: 72/M Req #: [id number] Adm Physician: Ordered by: BONI ELKINS [employer] HELPER Report #: [id number] Location: ER Room/Bed: Procedure: [id number] CT/CT MAXIO FAC/PARANAS WO Exam Date: 11/10/17 [...] 11/10/17 1121 COPY T O: BONI ELKINS [employer] HELPER CT BRAIN WO [place] [address] Patient Name: UMER MORENO MR #: [id number] : 1945 Age/Sex: 72/M Req #: [id number] Adm Physician: Ordered by: BONI ELKINS [employer] HELPER Report #: [id number] Location: ER Room/Bed: Procedure: [id number] CT/CT BRAIN WO Exam Date: 0 3/14/18 Exam Time: 1020 REPORT STATUS: Signed Exams: [...] AM D ictated By: TRIP CONNELLY MD 1121 Transcribed By: JENNI on 11/10/17 1121 COPY TO: Vito ELKINS NP [facility] [place] [address] Patient Name: UMER MORENO MR #: [id number] : 1945 Age/Sex: 72/M Req #: [id number] Adm Physician: Ordered by: RANDI LEE MD Report #: [id number] Location: [facility] Room/Bed: Procedure: [id number] DX/ABDOMEN-1VIEW (KUB) Exam Date: 11/08/17 Exam Time: 09 REPORT STATUS: Signed PROCEDURE: X-RAY ABDOMEN - [...] By: ALIREZA on 11/08/17 1330 COPY TO: RANDI LEE MD ABDOMEN-1VIEW (KUB) [place] [address] Patient Name: UMER MORENO MR #: [id number] : 1945 Age/Sex: 72/M Req #: [id number] Adm Physician: Ordered by: RANDI LEE MD Report #: [id number] Location: [facility] Room/Bed: Procedure: [id number] DX/ABDOMEN-1VIEW (KUB) Exam Date: 08/12/17 Exam Time: [...] cribed By: ALIREZA on 08/12/17934 COPY TO: RANDI LEE MD ABDOMEN-1VIEW (KUB) [place] [address] Patient Name: UMER MORENO MR #: [id number] : 1945 Age/Sex: 71/M Req #: [id number] Adm Physician: Ordered by: RANDI LEE MD Report #: [id number] Location: [facility] Room/Bed: Procedure: [id number] DX/ABDOMEN-1VIEW (KUB) Exam Date: 05/07/17 Exam Time: 819 REPORT STATUS: Signed PROCEDURE: X-RAY ABDOMEN - [...]
== END 2020-05-27 16:38 | disposition home or self-care (01) ==
LOC: FSED 15:13
DX: N41.0 Acute prostatitis (principal); N39.0 Urinary tract infection, site not specified; I10 Essential (primary) hypertension; E11.40 Type 2 diabetes mellitus with diabetic neuropathy, unspecified; E78.5 Hyperlipidemia, unspecified; E03.9 Hypothyroidism, unspecified
CPT/HCPCS: 81003; 87086; 99283; J0696; J2001; Q0162; 87186

== ENCOUNTER → 2020-11-01 | Outpatient (CLI) | payer MEDICARE ==
[~2020-11-01] MED LIST changes: +BACID WITH LAC PO; +CEFDINIR300 MG PO; +TYLENOL # 31 EA PO; +ZOFRAN4 MG SL
== END ==
LOC: US 07:58
PROVIDERS: ATTEND Urology
DX: N28.1 Cyst of kidney, acquired (principal)
CPT/HCPCS: 76770

== ENCOUNTER → 2021-03-21 | Outpatient (CLI) | payer MEDICARE | LOC: RAD 08:37 | PROVIDERS: ATTEND Internal Medicine Endocrinology, Diabetes & Metabolism | DX: R06.02 Shortness of breath (principal); R05 Cough | CPT/HCPCS: 71046 ==

== ENCOUNTER → 2022-02-18 | Outpatient (CLI) | payer MEDICARE | LOC: US 08:52 | PROVIDERS: ATTEND Urology | DX: N28.1 Cyst of kidney, acquired (principal) | CPT/HCPCS: 76770 ==

== ENCOUNTER 2022-03-04 23:09 | Inpatient (IN) | payer MEDICARE ==
[~2022-03-04] VITALS: Ht 165.1 cm; Wt 79.5 kg
[2022-03-05 00:11] LABS: BASOPHILS % 0.1 % (0.0-1.0); EOSINOPHILS # (AUTO) 0.1 (0.0-0.4); EOSINOPHILS % 1.3 % (0.0-6.0); HEMATOCRIT 40.8 % (38.2-49.6); HEMOGLOBIN 12.8 g/dL (14.0-18.0); LYMPHOCYTES # (AUTO) 2.4 (1.0-3.2); LYMPHOCYTES % 33.1 % (18.0-39.1); MEAN CORPUSCULAR HEMOGLOBIN 25.3 pg (28-32); MEAN CORPUSCULAR HGB CONC 31.4 g/dL (31-35); MEAN CORPUSCULAR VOLUME 80.8 fL (81-99); MONOCYTES # (AUTO) 0.6 (0.2-0.8); MONOCYTES % 8.1 % (4.4-11.3); NEUTROPHILS # (AUTO) 4.1 (2.1-6.9); NEUTROPHILS % 57.1 % (38.7-80.0); PLATELET COUNT 264 x10e3/uL (140-360); RED BLOOD COUNT 5.05 x10e6/uL (4.3-5.7); RED CELL DISTRIBUTION WIDTH 14.6 % (11.7-14.4)
[2022-03-05 00:20] LABS: INR 0.87; PROTHROMBIN TIME 12.6 seconds (11.9-14.5)
[2022-03-05 00:21] LABS: PARTIAL THROMBOPLASTIN TIME 24.3 seconds (23.8-35.5)
[2022-03-05 00:30] LABS: ALBUMIN/GLOBULIN RATIO 1.3 (0.8-2.0); ANION GAP 14.3 mmol/L (8-16); CALCIUM 9.8 mg/dL (8.4-10.2); CREATININE, SERUM 1.56 mg/dL (0.72-1.25); POTASSIUM 4.3 mmol/L (3.5-5.1)
[2022-03-05] MEDS ORDERED: DEXTROSE 50% SYRINGE 50 ML IV PRN (02:00)
[2022-03-05 02:42] VITALS: BP 117/60
[2022-03-05] MEDS: SODIUM CHLORIDE 0.9% 1000ML 1,000 ML IV SCH ×2 (05:20→07:35)
[2022-03-05 06:01] LABS: HEMATOCRIT 36.8 % (38.2-49.6); HEMOGLOBIN 11.5 g/dL (14.0-18.0)
[2022-03-05 07:47] VITALS: BP 112/64
[2022-03-05] MEDS: INSULIN REGULAR, HUMAN 100 UNIT/1 ML SQ SCH ×4 (08:06→21:00)
[2022-03-05 11:55] VITALS: BP 111/66
[2022-03-05 11:59] LABS: HEMATOCRIT 35.9 % (38.2-49.6); HEMOGLOBIN 11.2 g/dL (14.0-18.0)
[2022-03-05] MEDS ORDERED: BISACODYL 5 MG TAB EC PO ONE ×2 (16:15→19:00)
[2022-03-05 17:31] VITALS: BP 135/66
[2022-03-05 19:03] LABS: HEMATOCRIT 36.3 % (38.2-49.6); HEMOGLOBIN 11.2 g/dL (14.0-18.0)
[2022-03-05 20:00] VITALS: BP 169/87
[2022-03-05] MEDS ORDERED: CITRATE OF MAGNESIA 300ML BOTTLE PO ONE (23:00)
[2022-03-06] VITALS (9 sets, daily range): BP systolic 98–140; BP diastolic 44–78
[2022-03-06] MEDS ORDERED: SODIUM CHLORIDE 0.9% 250ML 250 ML ONE (01:20)
[2022-03-06 05:21] LABS: BASOPHILS % 0.2 % (0.0-1.0); EOSINOPHILS # (AUTO) 0.2 (0.0-0.4); EOSINOPHILS % 1.6 % (0.0-6.0); HEMATOCRIT 38.1 % (38.2-49.6); HEMOGLOBIN 11.7 g/dL (14.0-18.0); LYMPHOCYTES # (AUTO) 2.3 (1.0-3.2); LYMPHOCYTES % 20.2 % (18.0-39.1); MEAN CORPUSCULAR HEMOGLOBIN 25.2 pg (28-32); MEAN CORPUSCULAR HGB CONC 30.7 g/dL (31-35); MEAN CORPUSCULAR VOLUME 82.1 fL (81-99); MONOCYTES # (AUTO) 0.7 (0.2-0.8); MONOCYTES % 6.4 % (4.4-11.3); NEUTROPHILS # (AUTO) 8.2 (2.1-6.9); NEUTROPHILS % 71.2 % (38.7-80.0); PLATELET COUNT 266 x10e3/uL (140-360); RED BLOOD COUNT 4.64 x10e6/uL (4.3-5.7); RED CELL DISTRIBUTION WIDTH 14.6 % (11.7-14.4)
[2022-03-06] MEDS: SODIUM CHLORIDE 0.9% 1000ML 1,000 ML IV SCH ×2 (05:32→08:10)
[2022-03-06] MEDS: LEVOTHYROXINE SODIUM 125 MCG TAB PO SCH (05:34)
[2022-03-06 05:43] LABS: ANION GAP 13.9 mmol/L (8-16); CREATININE, SERUM 1.01 mg/dL (0.72-1.25); POTASSIUM 3.9 mmol/L (3.5-5.1)
[2022-03-06] MEDS ORDERED: CITRATE OF MAGNESIA 300ML BOTTLE PO ONE (07:00)
[2022-03-06] MEDS: INSULIN REGULAR, HUMAN 100 UNIT/1 ML SQ SCH ×4 (07:14→21:00)
[2022-03-06] MEDS ORDERED: FENOFIBRATE 145 MG TAB PO SCH (09:00)
[2022-03-06] MEDS ORDERED: SYNTHROID 125 MCG PO SCH (09:00)
[2022-03-07] VITALS: BP 149/67
[2022-03-07 04:00] VITALS: BP 133/75
[2022-03-07] MEDS: LEVOTHYROXINE SODIUM 125 MCG TAB PO SCH (05:59)
[2022-03-07 06:14] LABS: BASOPHILS % 0.2 % (0.0-1.0); EOSINOPHILS # (AUTO) 0.2 (0.0-0.4); EOSINOPHILS % 2.9 % (0.0-6.0); HEMATOCRIT 36.3 % (38.2-49.6); HEMOGLOBIN 11.2 g/dL (14.0-18.0); LYMPHOCYTES # (AUTO) 1.9 (1.0-3.2); LYMPHOCYTES % 30.7 % (18.0-39.1); MEAN CORPUSCULAR HEMOGLOBIN 25.1 pg (28-32); MEAN CORPUSCULAR HGB CONC 30.9 g/dL (31-35); MEAN CORPUSCULAR VOLUME 81.2 fL (81-99); MONOCYTES # (AUTO) 0.4 (0.2-0.8); NEUTROPHILS # (AUTO) 3.7 (2.1-6.9); NEUTROPHILS % 58.9 % (38.7-80.0); PLATELET COUNT 245 x10e3/uL (140-360); RED BLOOD COUNT 4.47 x10e6/uL (4.3-5.7); RED CELL DISTRIBUTION WIDTH 14.4 % (11.7-14.4)
[2022-03-07 06:29] LABS: ANION GAP 14.1 mmol/L (8-16); CALCIUM 8.5 mg/dL (8.4-10.2); CREATININE, SERUM 0.99 mg/dL (0.72-1.25); POTASSIUM 4.1 mmol/L (3.5-5.1)
[2022-03-07 07:36] VITALS: BP 141/75
[2022-03-07 08:49] VITALS: BP 141/75
== END 2022-03-07 09:16 | disposition home or self-care (01) | DRG 378 ==
LOC: ER 23:54 → ERHOLD 03-05 01:53 → MED/SURG 03-05 07:22
PROVIDERS: ADMIT Internal Medicine; ATTEND Internal Medicine
PROC: 30233R1 Transfusion of Nonautologous Platelets into Peripheral Vein, Percutaneous Approach (ICD-10-PCS; 2022-03-06)
PROC: 0DJD8ZZ Inspection of Lower Intestinal Tract, Via Natural or Artificial Opening Endoscopic (ICD-10-PCS; principal; 2022-03-06 17:11)
DX: K57.31 Diverticulosis of large intestine without perforation or abscess with bleeding (principal); N17.9 Acute kidney failure, unspecified; E13.69 Other specified diabetes mellitus with other specified complication; E11.22 Type 2 diabetes mellitus with diabetic chronic kidney disease; N18.30 Chronic kidney disease, stage 3 unspecified; E11.65 Type 2 diabetes mellitus with hyperglycemia; E03.9 Hypothyroidism, unspecified; E78.5 Hyperlipidemia, unspecified; K64.8 Other hemorrhoids; Z88.1 Allergy status to other antibiotic agents; Z88.0 Allergy status to penicillin; Z87.440 Personal history of urinary (tract) infections; Z20.822 Contact with and (suspected) exposure to COVID-19; Z79.84 Long term (current) use of oral hypoglycemic drugs
CPT/HCPCS: 36415; 45378; 74176; 80048; 80053; 82948; 85014; 85018; 85025; 85610; 85730; 86850; 86900; 96372; 99284; J0696; J1817; J7030; J7050; P9034

== ENCOUNTER 2022-05-26 17:42 | Emergency (ER) | payer MEDICARE ==
[~2022-05-26] VITALS: Ht 165.1 cm; Wt 79.4 kg
[2022-05-26] MEDS ORDERED: SODIUM CHLORIDE 0.9% 1000ML 1,000 ML IV STA (17:52)
[2022-05-26] MEDS ORDERED: Morphine 4mg INJECTION 4 MG/ML INJ IV STA (17:52)
[2022-05-26] MEDS ORDERED: ONDANSETRON HCL INJ 2MG/ML 2ML 2 MG/ML VIAL IV STA (17:52)
[2022-05-26 18:45] LABS: BASOPHILS % 0.1 % (0.0-1.0); EOSINOPHILS # (AUTO) 0.2 (0.0-0.4); EOSINOPHILS % 2.3 % (0.0-6.0); HEMATOCRIT 38.4 % (38.2-49.6); HEMOGLOBIN 11.9 g/dL (14.0-18.0); LYMPHOCYTES # (AUTO) 2.3 (1.0-3.2); LYMPHOCYTES % 29.9 % (18.0-39.1); MEAN CORPUSCULAR VOLUME 77.4 fL (81-99); MONOCYTES # (AUTO) 0.6 (0.2-0.8); MONOCYTES % 8.2 % (4.4-11.3); NEUTROPHILS # (AUTO) 4.5 (2.1-6.9); NEUTROPHILS % 59.2 % (38.7-80.0); PLATELET COUNT 299 x10e3/uL (140-360); RED BLOOD COUNT 4.96 x10e6/uL (4.3-5.7); RED CELL DISTRIBUTION WIDTH 14.1 % (11.7-14.4)
[2022-05-26 19:03] LABS: ALBUMIN 3.8 g/dL (3.5-5.0); ALBUMIN/GLOBULIN RATIO 1.2 (0.8-2.0); ANION GAP 13.8 mmol/L (8-16); CALCIUM 9.6 mg/dL (8.4-10.2); CREATININE, SERUM 1.13 mg/dL (0.72-1.25); POTASSIUM 3.8 mmol/L (3.5-5.1)
[2022-05-26 19:10] LABS: CLARITY,URINE CLEAR (CLEAR); COLOR,URINE YELLOW (YELLOW); KETONES,URINE NEGATIVE (NEGATIVE); LEUKOCYTE ESTERASE ,URINE NEGATIVE (NEGATIVE); NITRITE,URINE NEGATIVE (NEGATIVE); PROTEIN,URINE DIPSTICK NEGATIVE (NEGATIVE); URINE UROBILINOGEN 0.2 mg/dL (0.2 - 1)
[2022-05-26 19:35] LABS: WBC,URINE (MAN) 0-5 /HPF (0-5)
[2022-05-26] MEDS ORDERED: ACETAMINOPHEN-1 EAC4 PO (21:01)
[2022-05-26] MEDS ORDERED: METRONIDAZOLE500 MG PO (21:01)
[2022-05-26] MEDS ORDERED: ONDANSETRON ODT4 MG PO (21:01)
[2022-05-26 21:37] VITALS: BP 142/76
== END 2022-05-26 21:19 | disposition home or self-care (01) ==
LOC: ER 18:00
DX: R10.31 Right lower quadrant pain (principal); K57.32 Diverticulitis of large intestine without perforation or abscess without bleeding; R74.9 Abnormal serum enzyme level, unspecified; E11.65 Type 2 diabetes mellitus with hyperglycemia; E11.40 Type 2 diabetes mellitus with diabetic neuropathy, unspecified; I10 Essential (primary) hypertension; E78.5 Hyperlipidemia, unspecified; K76.0 Fatty (change of) liver, not elsewhere classified; E03.9 Hypothyroidism, unspecified
CPT/HCPCS: 36415; 74176; 80053; 81001; 83690; 85025; 99283; J2270; J2405; J7030

== ENCOUNTER → 2022-07-06 | Outpatient (CLI) | payer MEDICARE ==
[~2022-07-06] MED LIST changes: +ACETAMINOPHEN-1 EAC4 PO; +METRONIDAZOLE500 MG PO; +ONDANSETRON ODT4 MG PO
== END ==
LOC: US 12:39
PROVIDERS: ATTEND Internal Medicine Endocrinology, Diabetes & Metabolism
DX: R07.82 Intercostal pain (principal)
CPT/HCPCS: 71101; 76700

== ENCOUNTER → 2022-09-25 | Outpatient (CLI) | payer MEDICARE ==
[~2022-09-25] MED LIST changes: +IOPAMIDOL 370 MG/ML 100 ML INFUS..BTL INJ ONE
[2022-09-25 09:29] LABS: CREATININE, SERUM 1.24 mg/dL (0.72-1.25)
== END ==
LOC: CT 08:13
PROVIDERS: ATTEND Internal Medicine Hepatology
DX: R10.32 Left lower quadrant pain (principal); K59.00 Constipation, unspecified; E11.9 Type 2 diabetes mellitus without complications; R10.11 Right upper quadrant pain; K57.30 Diverticulosis of large intestine without perforation or abscess without bleeding; K21.9 Gastro-esophageal reflux disease without esophagitis; K57.91 Diverticulosis of intestine, part unspecified, without perforation or abscess with bleeding; R16.0 Hepatomegaly, not elsewhere classified; D51.3 Other dietary vitamin B12 deficiency anemia; Z86.010 Personal history of colon polyps
CPT/HCPCS: 36415; 74178; 82565; 84520; Q9967

== ENCOUNTER → 2022-10-15 | Outpatient (CLI) | payer MEDICARE ==
[~2022-10-15] MED LIST changes: +AZITHROMYCIN250 MG PO; -IOPAMIDOL 370 MG/ML 100 ML INFUS..BTL INJ ONE; +VICTOZA 2-0.6 MG/0.1 SC
== END ==
LOC: RAD 15:51
PROVIDERS: ATTEND Internal Medicine Endocrinology, Diabetes & Metabolism
DX: R05.1 Acute cough (principal); J06.9 Acute upper respiratory infection, unspecified
CPT/HCPCS: 71046

== ENCOUNTER 2022-10-17 12:34 | Inpatient (IN) | payer MEDICARE ==
[~2022-10-17] VITALS: Ht 165.1 cm; Wt 72.7 kg
[~2022-10-17 12:34] MED LIST changes: -AZITHROMYCIN250 MG PO; -VICTOZA 2-0.6 MG/0.1 SC
[2022-10-17 13:16] LABS: STREPTOCOCCUS GRP A ANTIGEN NEGATIVE (NEGATIVE)
[2022-10-17 13:25] LABS: INFLUENZAE A&B ANTIGEN (RAPID) NEGATIVE (NEGATIVE)
[2022-10-17] MEDS ORDERED: SODIUM CHLORIDE 0.9% 1000ML 1,000 ML IV STA (14:20)
[2022-10-17 15:27] LABS: BASOPHILS % 0.3 % (0.0-1.0); EOSINOPHILS # (AUTO) 0.3 (0.0-0.4); HEMATOCRIT 36.2 % (38.2-49.6); LYMPHOCYTES # (AUTO) 1.1 (1.0-3.2); LYMPHOCYTES % 9.6 % (18.0-39.1); MEAN CORPUSCULAR HEMOGLOBIN 24.2 pg (28-32); MEAN CORPUSCULAR HGB CONC 33.1 g/dL (31-35); MONOCYTES # (AUTO) 0.9 (0.2-0.8); MONOCYTES % 8.2 % (4.4-11.3); NEUTROPHILS # (AUTO) 8.3 (2.1-6.9); NEUTROPHILS % 75.3 % (38.7-80.0); PLATELET COUNT 463 x10e3/uL (140-360); RED BLOOD COUNT 4.96 x10e6/uL (4.3-5.7); RED CELL DISTRIBUTION WIDTH 15.9 % (11.7-14.4)
[2022-10-17 15:38] LABS: INR 1.16
[2022-10-17 15:39] LABS: PARTIAL THROMBOPLASTIN TIME 45.6 seconds (23.8-35.5)
[2022-10-17 15:44] LABS: ALBUMIN 2.7 g/dL (3.5-5.0); ALBUMIN/GLOBULIN RATIO 0.5 (0.8-2.0); CALCIUM 10.3 mg/dL (8.4-10.2); CREATININE, SERUM 1.11 mg/dL (0.72-1.25); MAGNESIUM 1.7 MG/DL (1.3-2.1)
[2022-10-17 15:52] LABS: CREATINE KINASE MB 0.4 ng/mL (0-5.0)
[2022-10-17] MEDS ORDERED: DEXTROSE 50% SYRINGE 50 ML IV STA (15:53)
[2022-10-17] MEDS: DEXTROSE 5%/0.45% SOD CHL 1,000 ML IV SCH (16:00)
[2022-10-17] MEDS ORDERED: ALBUTEROL SULF 0.083% NEB SOLN 3 ML NEB NEB PRN (16:00)
[2022-10-17] MEDS ORDERED: DEXTROSE 50% SYRINGE 50 ML IV ONE (16:06)
[2022-10-17] MEDS ORDERED: ONDANSETRON HCL 4 MG ORAL DISINTEGRATING TAB PO PRN (16:45)
[2022-10-17] MEDS ORDERED: ACETAMINOPHEN 325 MG TAB PO PRN (16:45)
[2022-10-17] MEDS ORDERED: REMDESIVIR 200MG 200 MG in SODIUM CHLORIDE 0.9% 100 ML IV ONE (17:00)
[2022-10-17] MEDS: ENOXAPARIN 30 MG/0.3 ML SYR SC SCH (17:25)
[2022-10-17] MEDS: DEXAMETHASONE SOD PHOS 10 MG/1 ML VIAL IV SCH (17:25)
[2022-10-17 22:32] VITALS: BP 146/74
[2022-10-17 23:30] VITALS: BP 146/74
[2022-10-18] VITALS (8 sets, daily range): BP systolic 121–143; BP diastolic 57–90
[2022-10-18] MEDS: DEXTROSE 5%/0.45% SOD CHL 1,000 ML IV SCH (04:07)
[2022-10-18 06:43] LABS: BASOPHILS % 0.1 % (0.0-1.0); EOSINOPHILS % 0.3 % (0.0-6.0); HEMATOCRIT 34.1 % (38.2-49.6); HEMOGLOBIN 11.3 g/dL (14.0-18.0); LYMPHOCYTES # (AUTO) 0.7 (1.0-3.2); LYMPHOCYTES % 9.7 % (18.0-39.1); MEAN CORPUSCULAR HEMOGLOBIN 24.1 pg (28-32); MEAN CORPUSCULAR HGB CONC 33.1 g/dL (31-35); MEAN CORPUSCULAR VOLUME 72.7 fL (81-99); MONOCYTES # (AUTO) 0.5 (0.2-0.8); MONOCYTES % 6.7 % (4.4-11.3); NEUTROPHILS # (AUTO) 5.7 (2.1-6.9); NEUTROPHILS % 79.3 % (38.7-80.0); PLATELET COUNT 470 x10e3/uL (140-360); RED BLOOD COUNT 4.69 x10e6/uL (4.3-5.7); RED CELL DISTRIBUTION WIDTH 15.8 % (11.7-14.4)
[2022-10-18 07:01] LABS: ALBUMIN 2.3 g/dL (3.5-5.0); ALBUMIN/GLOBULIN RATIO 0.5 (0.8-2.0); ANION GAP 16.1 mmol/L (8-16); CALCIUM 9.8 mg/dL (8.4-10.2); POTASSIUM 4.1 mmol/L (3.5-5.1)
[2022-10-18 07:37] LABS: CREATINE KINASE MB 0.5 ng/mL (0-5.0)
[2022-10-18] MEDS ORDERED: ZOLPIDEM TARTRATE 5 MG TAB PO PRN (08:15)
[2022-10-18] MEDS: FENOFIBRATE 145 MG TAB PO SCH (09:04)
[2022-10-18] MEDS: TAMSULOSIN HCL 0.4 MG CAP PO SCH (09:04)
[2022-10-18] MEDS ORDERED: REMDESIVIR 100MG 100 MG in SODIUM CHLORIDE 0.9% 100 ML IV SCH (14:00)
[2022-10-18] MEDS ORDERED: DEXTROSE 50% SYRINGE 50 ML IV PRN (14:45)
[2022-10-18] MEDS: INSULIN LISPRO 100 UNIT/1 ML 3ML VIAL SQ SCH ×2 (16:20→20:20)
[2022-10-18] MEDS: ENOXAPARIN 30 MG/0.3 ML SYR SC SCH (16:28)
[2022-10-18] MEDS: DEXAMETHASONE SOD PHOS 10 MG/1 ML VIAL IV SCH (16:28)
[2022-10-19] VITALS (7 sets, daily range): BP systolic 145–156; BP diastolic 68–98
[2022-10-19] MEDS ORDERED: CEFTRIAXONE 1 GM VIAL ONE (01:35)
[2022-10-19 06:21] LABS: BASOPHILS % 0.2 % (0.0-1.0); EOSINOPHILS % 0.1 % (0.0-6.0); HEMATOCRIT 33.9 % (38.2-49.6); HEMOGLOBIN 11.9 g/dL (14.0-18.0); LYMPHOCYTES # (AUTO) 0.8 (1.0-3.2); LYMPHOCYTES % 9.5 % (18.0-39.1); MEAN CORPUSCULAR HEMOGLOBIN 26.9 pg (28-32); MEAN CORPUSCULAR HGB CONC 35.1 g/dL (31-35); MEAN CORPUSCULAR VOLUME 76.5 fL (81-99); MONOCYTES # (AUTO) 0.3 (0.2-0.8); MONOCYTES % 3.2 % (4.4-11.3); NEUTROPHILS # (AUTO) 7.5 (2.1-6.9); NEUTROPHILS % 85.5 % (38.7-80.0); PLATELET COUNT 321 x10e3/uL (140-360); RED BLOOD COUNT 4.43 x10e6/uL (4.3-5.7); RED CELL DISTRIBUTION WIDTH 19.9 % (11.7-14.4)
[2022-10-19 06:41] LABS: ALBUMIN 2.4 g/dL (3.5-5.0); ALBUMIN/GLOBULIN RATIO 0.5 (0.8-2.0); ANION GAP 17.5 mmol/L (8-16); CREATININE, SERUM 1.09 mg/dL (0.72-1.25); POTASSIUM 4.5 mmol/L (3.5-5.1)
[2022-10-19] MEDS: INSULIN LISPRO 100 UNIT/1 ML 3ML VIAL SQ SCH ×4 (07:30→21:00)
[2022-10-19 07:41] LABS: CREATINE KINASE MB 0.7 ng/mL (0-5.0)
[2022-10-19] MEDS ORDERED: SODIUM CHLORIDE 0.45% 1,000 ML IV ONE (09:15)
[2022-10-19] MEDS: FENOFIBRATE 145 MG TAB PO SCH (10:19)
[2022-10-19] MEDS: TAMSULOSIN HCL 0.4 MG CAP PO SCH (10:19)
[2022-10-19] MEDS: GLIMEPIRIDE 2 MG TAB PO SCH (10:20)
[2022-10-19 15:58] LABS: CREATINE KINASE 24 IU/L (30-200)
[2022-10-19] MEDS: ENOXAPARIN 30 MG/0.3 ML SYR SC SCH (17:04)
[2022-10-19] MEDS ORDERED: INSULIN GLARGINE 100 UNITS/ML VIAL SQ SCH (21:00)
[2022-10-20] MEDS ORDERED: VICTOZA 2-0.6 MG/0.1 SC (00:01)
[2022-10-20 00:10] VITALS: BP 136/59
[2022-10-20 01:01] VITALS: BP 136/59
[2022-10-20 05:10] VITALS: BP 111/64
[2022-10-20 06:52] LABS: BASOPHILS % 0.3 % (0.0-1.0); EOSINOPHILS # (AUTO) 0.3 (0.0-0.4); EOSINOPHILS % 4.1 % (0.0-6.0); HEMATOCRIT 33.2 % (38.2-49.6); HEMOGLOBIN 10.9 g/dL (14.0-18.0); LYMPHOCYTES # (AUTO) 1.5 (1.0-3.2); LYMPHOCYTES % 22.9 % (18.0-39.1); MEAN CORPUSCULAR HEMOGLOBIN 24.3 pg (28-32); MEAN CORPUSCULAR HGB CONC 32.8 g/dL (31-35); MEAN CORPUSCULAR VOLUME 74.1 fL (81-99); MONOCYTES # (AUTO) 0.5 (0.2-0.8); MONOCYTES % 6.8 % (4.4-11.3); NEUTROPHILS # (AUTO) 4.2 (2.1-6.9); NEUTROPHILS % 64.5 % (38.7-80.0); PLATELET COUNT 487 x10e3/uL (140-360); RED BLOOD COUNT 4.48 x10e6/uL (4.3-5.7); RED CELL DISTRIBUTION WIDTH 16.1 % (11.7-14.4)
[2022-10-20 07:17] LABS: ALBUMIN 2.4 g/dL (3.5-5.0); ALBUMIN/GLOBULIN RATIO 0.5 (0.8-2.0); CALCIUM 9.4 mg/dL (8.4-10.2); CREATININE, SERUM 1.1 mg/dL (0.72-1.25)
[2022-10-20] MEDS: INSULIN LISPRO 100 UNIT/1 ML 3ML VIAL SQ SCH ×2 (07:30→11:30)
[2022-10-20 08:00] VITALS: BP 132/74
[2022-10-20] MEDS: GLIMEPIRIDE 2 MG TAB PO SCH (08:02)
[2022-10-20] MEDS: TAMSULOSIN HCL 0.4 MG CAP PO SCH (08:26)
[2022-10-20] MEDS: FENOFIBRATE 145 MG TAB PO SCH (08:26)
[2022-10-20] MEDS ORDERED: AZITHROMYCIN 250 MG TAB PO SCH (09:00)
[2022-10-20] MEDS ORDERED: AZITHROMYCIN250 MG PO (11:01)
[2022-10-20] MEDS ORDERED: CEFUROXIME250 MG PO (11:01)
[2022-10-20 12:23] VITALS: BP 134/66
== END 2022-10-20 12:58 | disposition home or self-care (01) | DRG 177 ==
LOC: ER 12:42 → OBSVTOIN 16:10 → ERHOLD 16:10 → MED/SURG3 22:08
PROVIDERS: ADMIT Internal Medicine; ATTEND Internal Medicine
PROC: 8E0ZXY6 Isolation (ICD-10-PCS; principal; 2022-10-17)
PROC: XW033E5 Introduction of Remdesivir Anti-infective into Peripheral Vein, Percutaneous Approach, New Technology Group 5 (ICD-10-PCS; 2022-10-17)
DX: U07.1 COVID-19 (principal); J12.82 Pneumonia due to coronavirus disease 2019; J15.9 Unspecified bacterial pneumonia; E11.9 Type 2 diabetes mellitus without complications; I10 Essential (primary) hypertension; Z88.1 Allergy status to other antibiotic agents; Z88.0 Allergy status to penicillin; N40.1 Benign prostatic hyperplasia with lower urinary tract symptoms; R33.8 Other retention of urine; E11.65 Type 2 diabetes mellitus with hyperglycemia; Z87.891 Personal history of nicotine dependence
CPT/HCPCS: 0223U; 36415; 71045; 71250; 80053; 82550; 82553; 82948; 83518; 83735; 83880; 84484; 85025; 85610; 85730; 87040; 87070; 87400; 93005; 94799; 99284; J0248; J0456; J0696; J1100; J1650; J7030; J7050; J7799

== ENCOUNTER → 2022-12-21 | Outpatient (CLI) | payer MEDICARE ==
[~2022-12-21] MED LIST changes: +AZITHROMYCIN250 MG PO; +VICTOZA 2-0.6 MG/0.1 SC
[2022-12-21 10:05] LABS: BASOPHILS % 0.2 % (0.0-1.0); EOSINOPHILS # (AUTO) 0.2 (0.0-0.4); EOSINOPHILS % 2.6 % (0.0-6.0); HEMATOCRIT 38.6 % (38.2-49.6); HEMOGLOBIN 12.4 g/dL (14.0-18.0); LYMPHOCYTES # (AUTO) 1.7 (1.0-3.2); LYMPHOCYTES % 29.5 % (18.0-39.1); MEAN CORPUSCULAR HEMOGLOBIN 25.4 pg (28-32); MEAN CORPUSCULAR HGB CONC 32.1 g/dL (31-35); MEAN CORPUSCULAR VOLUME 79.1 fL (81-99); MONOCYTES # (AUTO) 0.4 (0.2-0.8); MONOCYTES % 6.2 % (4.4-11.3); NEUTROPHILS # (AUTO) 3.5 (2.1-6.9); NEUTROPHILS % 61.1 % (38.7-80.0); PLATELET COUNT 228 x10e3/uL (140-360); RED BLOOD COUNT 4.88 x10e6/uL (4.3-5.7); RED CELL DISTRIBUTION WIDTH 14.9 % (11.7-14.4)
[2022-12-21 10:49] LABS: ALBUMIN 3.9 g/dL (3.5-5.0); ALBUMIN/GLOBULIN RATIO 1.1 (0.8-2.0); ANION GAP 14.3 mmol/L (8-16); CREATININE, SERUM 1.14 mg/dL (0.72-1.25); POTASSIUM 4.3 mmol/L (3.5-5.1)
[2022-12-21 11:09] LABS: THYROID STIMULATING HORMONE 0.467 uIU/mL (0.350-4.940)
== END ==
LOC: LAB 09:47
PROVIDERS: ATTEND Internal Medicine Endocrinology, Diabetes & Metabolism
DX: Z12.5 Encounter for screening for malignant neoplasm of prostate (principal); E11.59 Type 2 diabetes mellitus with other circulatory complications; R07.9 Chest pain, unspecified; E03.9 Hypothyroidism, unspecified; R94.31 Abnormal electrocardiogram [ECG] [EKG]
CPT/HCPCS: 36415; 80053; 80061; 83036; 84152; 84443; 85025

== ENCOUNTER → 2023-02-12 | Outpatient (CLI) | payer MEDICARE ==
[2023-02-12 09:49] LABS: BASOPHILS % 0.3 % (0.0-1.0); EOSINOPHILS # (AUTO) 0.2 (0.0-0.4); EOSINOPHILS % 2.6 % (0.0-6.0); HEMATOCRIT 41.4 % (38.2-49.6); HEMOGLOBIN 13.4 g/dL (14.0-18.0); LYMPHOCYTES # (AUTO) 2.3 (1.0-3.2); LYMPHOCYTES % 31.9 % (18.0-39.1); MEAN CORPUSCULAR HEMOGLOBIN 24.5 pg (28-32); MEAN CORPUSCULAR HGB CONC 32.4 g/dL (31-35); MEAN CORPUSCULAR VOLUME 75.5 fL (81-99); MONOCYTES # (AUTO) 0.4 (0.2-0.8); MONOCYTES % 5.9 % (4.4-11.3); NEUTROPHILS # (AUTO) 4.3 (2.1-6.9); NEUTROPHILS % 59.2 % (38.7-80.0); PLATELET COUNT 234 x10e3/uL (140-360); RED BLOOD COUNT 5.48 x10e6/uL (4.3-5.7)
[2023-02-12 10:08] LABS: ALBUMIN/GLOBULIN RATIO 1.2 (0.8-2.0); ANION GAP 12.3 mmol/L (8-16); CALCIUM 9.3 mg/dL (8.4-10.2); CREATININE, SERUM 1.13 mg/dL (0.72-1.25); POTASSIUM 4.3 mmol/L (3.5-5.1)
== END ==
LOC: LAB 09:31
PROVIDERS: ATTEND Internal Medicine Endocrinology, Diabetes & Metabolism
DX: E11.59 Type 2 diabetes mellitus with other circulatory complications (principal); R07.9 Chest pain, unspecified; E03.9 Hypothyroidism, unspecified; Z12.5 Encounter for screening for malignant neoplasm of prostate
CPT/HCPCS: 36415; 80053; 83036; 85025

== ENCOUNTER 2024-04-19 13:40 | Emergency (ER) | payer MEDICARE ==
[~2024-04-19] VITALS: Ht 165.1 cm; Wt 72.6 kg
[2024-04-19 13:51] VITALS: PULSE 68; RESP 16; TEMP 98.6
[2024-04-19] MEDS ORDERED: PYRIDIUM100 MG PO (14:21)
[2024-04-19] MEDS ORDERED: CEFDINIR300 MG PO (14:21)
[2024-04-19 14:53] VITALS: BP 130/62; PULSE 62; RESP 16; O2SAT 99
[2024-04-19 14:57] LABS: CLARITY,URINE HAZY (CLEAR); COLOR,URINE YELLOW (YELLOW)
[2024-04-19 14:59] LABS: BILIRUBIN,URINE NEGATIVE (NEGATIVE); GLUCOSE, URINE >=1000 (NEGATIVE); KETONES,URINE NEGATIVE (NEGATIVE); LEUKOCYTE ESTERASE ,URINE MODERATE (NEGATIVE); NITRITE,URINE NEGATIVE (NEGATIVE); PH,URINE 6.5 (5 - 7); PROTEIN,URINE DIPSTICK TRACE (NEGATIVE); URINE UROBILINOGEN 0.2 mg/dL (0.2 - 1)
[2024-04-19 15:12] LABS: BACTERIA,URINE MODERATE /HPF; RBC,URINE 0-5 /HPF (0-5); WBC,URINE (MAN) 21-50 /HPF (0-5)
== END 2024-04-19 14:51 | disposition home or self-care (01) ==
LOC: ER 13:52
DX: R30.0 Dysuria (principal); N39.0 Urinary tract infection, site not specified; R31.9 Hematuria, unspecified; E11.40 Type 2 diabetes mellitus with diabetic neuropathy, unspecified; K21.9 Gastro-esophageal reflux disease without esophagitis
CPT/HCPCS: 81001; 87086; 99283

== ENCOUNTER → 2025-01-01 | Outpatient (REF) | payer MEDICARE ==
[~2025-01-01] MED LIST changes: +PYRIDIUM100 MG PO
== END ==
LOC: LAB 10:44
PROVIDERS: ATTEND Internal Medicine Endocrinology, Diabetes & Metabolism
DX: E11.65 Type 2 diabetes mellitus with hyperglycemia (principal)
CPT/HCPCS: 83036

== ENCOUNTER 2025-04-27 14:55 | Inpatient (IN) | payer MEDICARE ==
[~2025-04-27] VITALS: Ht 165.1 cm; Wt 72.6 kg
[2025-04-27 15:53] LABS: BASOPHILS % 0.1 % (0.0-1.0); EOSINOPHILS % 0.3 % (0.0-6.0); LYMPHOCYTES % 7.5 % (18.0-39.1); MONOCYTES % 8.8 % (4.4-11.3); NEUTROPHILS % 82.2 % (38.7-80.0); RED CELL DISTRIBUTION WIDTH 15.3 % (11.7-14.4)
[2025-04-27 16:22] LABS: EST GLOMERULAR FILTRATION RATE 28.0 ML/MIN (>=60)
[2025-04-27 16:30] LABS: CORONAVIRUS COVID-19 AG NEGATIVE (NEGATIVE)
[2025-04-27] MEDS: KETOROLAC TROMETHAMINE 30 MG/ML VIAL IV STA (19:05)
[2025-04-27] MEDS: ACETAMINOPHEN 325 MG TAB PO ONE (19:06)
[2025-04-27] MEDS: SODIUM CHLORIDE 0.9% 1000ML 1,000 ML IV ONE (19:07)
[2025-04-27] MEDS: LACTATED RINGER'S 1,000 ML INJ ONE (19:19)
[2025-04-27 20:52] LABS: LEUKOCYTE ESTERASE ,URINE LARGE (NEGATIVE); PROTEIN,URINE DIPSTICK 1+ (NEGATIVE); URINE UROBILINOGEN 0.2 mg/dL (0.2 - 1)
[2025-04-27 20:56] LABS: WBC,URINE (MAN) >50 /HPF (0-5)
[2025-04-27] MEDS ORDERED: ONDANSETRON HCL INJ 2MG/ML 2ML 2 MG/ML VIAL IV PRN (21:00)
[2025-04-27 22:43] VITALS: PULSE 78; RESP 18; TEMP 98.4
[2025-04-27] MEDS: SODIUM CHLORIDE 0.9% 1000ML 1,000 ML IV SCH (22:57)
[2025-04-27 23:30] VITALS: BP 92/53; PULSE 70; RESP 18; TEMP 98.6; O2SAT 100
[2025-04-27 23:39] VITALS: PULSE 78; RESP 17; O2SAT 98
[2025-04-28] VITALS (10 sets, daily range): BP systolic 92–159; BP diastolic 53–66; PULSE 70–102; RESP 17–21; TEMP 98.1–102.4; O2SAT 96–100
[2025-04-28 07:03] LABS: BASOPHILS % 0.2 % (0.0-1.0); EOSINOPHILS % 0.2 % (0.0-6.0); LYMPHOCYTES % 4.7 % (18.0-39.1); MONOCYTES % 9.8 % (4.4-11.3); NEUTROPHILS % 82.2 % (38.7-80.0); RED CELL DISTRIBUTION WIDTH 15.4 % (11.7-14.4)
[2025-04-28 07:52] LABS: EST GLOMERULAR FILTRATION RATE 40.0 ML/MIN (>=60)
[2025-04-28 13:47] LABS: BAND NEUTROPHILS % (MANUAL) 5 %; LYMPHOCYTES % (MANUAL) 3 % (19-48); MONOCYTES % (MANUAL) 4 % (3.4-9.0); NEUTROPHILS % (MANUAL) 88 % (40-74); PLATELET ESTIMATE ADEQUATE; PLATELET MORPHOLOGY COMMENT NORMAL
[2025-04-28] MEDS: GABAPENTIN 300 MG CAP PO SCH (17:13)
[2025-04-28] MEDS: ACETAMINOPHEN 325 MG TAB PO PRN (19:39)
[2025-04-28] MEDS: TAMSULOSIN HCL 0.4 MG CAP PO SCH (21:32)
[2025-04-29] VITALS (9 sets, daily range): BP systolic 104–149; BP diastolic 59–77; PULSE 60–88; RESP 17–20; TEMP 97.8–100.6; O2SAT 96–100
[2025-04-29] MEDS: LEVOTHYROXINE SODIUM 125 MCG TAB PO SCH (05:35)
[2025-04-29] MEDS: LISINOPRIL 2.5 MG TAB PO SCH (10:07)
[2025-04-29] MEDS: PANTOPRAZOLE SOD 40 MG TABEC PO SCH (10:08)
[2025-04-29] MEDS: FENOFIBRATE 145 MG TAB PO SCH (10:08)
[2025-04-29 14:26] LABS: BASOPHILS % 0.2 % (0.0-1.0); EOSINOPHILS % 1.7 % (0.0-6.0); LYMPHOCYTES % 10.0 % (18.0-39.1); MONOCYTES % 4.9 % (4.4-11.3); NEUTROPHILS % 82.9 % (38.7-80.0); RED CELL DISTRIBUTION WIDTH 15.3 % (11.7-14.4)
[2025-04-29 14:49] LABS: EST GLOMERULAR FILTRATION RATE 72.0 ML/MIN (>=60)
[2025-04-29] MEDS: ALBUTEROL SULF 0.083% NEB SOLN 3 ML NEB NEB STA (15:10)
[2025-04-29] MEDS: ALBUTEROL SULF 0.083% NEB SOLN 3 ML NEB ONE (15:11)
[2025-04-29] MEDS: FUROSEMIDE INJ 10 MG/ML 2 ML VIAL IV ONE (15:54)
[2025-04-29] MEDS ORDERED: DEXTROSE 50% SYRINGE 50 ML IV PRN (17:00)
[2025-04-29] MEDS: INSULIN LISPRO 100 UNIT/1 ML 3ML VIAL SQ SCH (21:00)
[2025-04-30] VITALS (8 sets, daily range): BP systolic 135–162; BP diastolic 67–89; PULSE 55–78; RESP 17–18; TEMP 97.7–99.2; O2SAT 95–100
[2025-04-30] MEDS: ALBUTEROL SULF 0.083% NEB SOLN 3 ML NEB NEB PRN (08:25)
[2025-04-30] MEDS: GLIMEPIRIDE 2 MG TAB PO SCH (10:27)
[2025-04-30] MEDS: LISINOPRIL 10 MG TAB PO SCH (10:28)
[2025-04-30] MEDS ORDERED: CIPRO500 MG PO (17:44)
== END 2025-04-30 19:20 | disposition home or self-care (01) | DRG 871 ==
LOC: ER 16:06 → ERHOLD 21:00 → MED/SURG2 23:09 → MED/SURG3 23:17
PROVIDERS: ADMIT Internal Medicine; ATTEND Internal Medicine
DX: A41.59 Other Gram-negative sepsis (principal); J81.0 Acute pulmonary edema; N39.0 Urinary tract infection, site not specified; N17.9 Acute kidney failure, unspecified; B96.1 Klebsiella pneumoniae [K. pneumoniae] as the cause of diseases classified elsewhere; I10 Essential (primary) hypertension; D64.9 Anemia, unspecified; E11.649 Type 2 diabetes mellitus with hypoglycemia without coma; E03.9 Hypothyroidism, unspecified; E11.40 Type 2 diabetes mellitus with diabetic neuropathy, unspecified; Z79.84 Long term (current) use of oral hypoglycemic drugs; Z79.85 Long-term (current) use of injectable non-insulin antidiabetic drugs; F10.90 Alcohol use, unspecified, uncomplicated; R74.8 Abnormal levels of other serum enzymes; R53.1 Weakness; Z11.52 Encounter for screening for COVID-19; Z79.899 Other long term (current) drug therapy; Z88.0 Allergy status to penicillin; Z88.1 Allergy status to other antibiotic agents; Z91.041 Radiographic dye allergy status
CPT/HCPCS: 36415; 71045; 71046; 80053; 81001; 82948; 83605; 83880; 85025; 87040; 87086; 87186; 94640; 94799; 99285; J0696; J1885; J1938; J2470; J7030

== ENCOUNTER → 2025-06-20 | Outpatient (REF) | payer MEDICARE ==
[~2025-06-20] MED LIST changes: +CIPRO500 MG PO
== END ==
LOC: MRI 08:32
PROVIDERS: ATTEND Internal Medicine Endocrinology, Diabetes & Metabolism
DX: M54.2 Cervicalgia (principal); G56.93 Unspecified mononeuropathy of bilateral upper limbs; M54.6 Pain in thoracic spine; M54.50 Low back pain, unspecified
CPT/HCPCS: 72141; 72146; 72148